=== PATIENT | female | born 1945 | race African-American/Black ===

== ENCOUNTER 2016-08-28 12:32 | Emergency (ER) | payer MEDICARE, MEDICAID ==
[~2016-08-28] VITALS: Ht 167.6 cm; Wt 99.8 kg
[~2016-08-28 12:32] MED LIST: ASPIR 8181 MG ORAL; ATENOLOL25 MG ORAL; ATIVAN1 MG ORAL; ATORVASTATIN CA20 MG ORAL; CALCIUM 600 +1 EAC2 PO; CALCIUM500 M3 PO; CEPHALEXIN500 M1 ORAL; DAILY MULTIPLE1 EACH ORAL; DOCUSATE SODIU100 MG ORAL; FLOVENT2 PUFF1 INH; GLUCOSAMINE &1 EACH PO; HEPARIN SO5000 UNIT2 SUBQ; HYDROCHLOROTHIA25 MG ORAL; HYDROCODON-ACE1 EA13 ORAL; IBUPROFEN600 MG ORAL; K-TAB10 MEQ PO; LEVOFLOXACIN500 MG ORAL; POTASSIUM 25 M25 ME1 PO; POTASSIUM CHLO20 ME1 ORAL; TYLENOL325 MG ORAL; VITAMIN C500 M1 ORAL; VITAMIN D400 INTLU ORAL; ZANTAC150 MG ORAL; ZOFRAN 4 MG4 MG/2 ML IV; ZOFRAN4 M3 ORAL; ZOLPIDEM TARTRAT5 MG ORAL
[2016-08-28] MEDS ORDERED: Ketorolac 60mg Inj IM ONE (13:00)
--- NOTE | 2016-08-28 13:10 | Emergency Room Report ---
History of Present Illness General Chief Complaint: Back Pain-No Injury Present Illness HPI 70 YO female presents to the ED c/o right upper back pain, onset after helping to assist her mother who is not mobile 3 weeks ago. denies trauma or fall. states pain is exacerbated with twisting of the trunk. reports pain is right sided, denies midline back pain. denies n/v/f/c. pt also reports asthma attach last week which required steroid burst. denies cough, wheezing, sob at this time. Pt states pain is not exacerbated with breathing. reports motrin has provided some relief, however pain returns. rates her pain as 6/10 in severity, localized, non-radiating. denies dysuria, hematuria or frequency. Denies numbness tingling or loss of sensation or gross motor movements of the extremities, incontinence of bowel or bladder. Denies CP, Palpitations, LOC, AMS , dizziness, Changes in Vision, Sensation, paresthesias, or a sudden severe headache. Allergies: Coded Allergies: No Known Allergies (Unverified , 07/21/13) Patient History Past Medical History: see triage record Past Surgical History: none Pertinent Family History: none Now: No Immunizations: UTD Reviewed Nursing Documentation: PMH: Agreed, PSxH: Agreed Nursing Documentation-PMH Hx Hypertension: Yes Hx Asthma: Yes Hx Cancer: No Hx Gastrointestinal Problems: Yes - Gastritis, CHOLECYSTECTOMY Hx Neurological Problems: No Review of Systems All Other Systems: negative except mentioned in HPI Physical Exam Vital Signs Date Time Temp Pulse Resp B/P Pulse Ox O2 Delivery O2 Flow Rate FiO2 08/28/16 12:41 98.2 79 20 143/82 100 Room Air Sp02 EP Interpretation: reviewed, normal General Appearance: no apparent distress, alert, GCS 15, non-toxic Head: normocephalic, atraumatic Eyes: bilateral eye PERRL, bilateral eye normal inspection ENT: hearing grossly normal, normal pharynx, no angioedema, normal voice Neck: full range of motion, supple/symm/no masses Respiratory: chest non-tender, lungs clear, normal breath sounds, no wheezing, speaking full sentences Cardiovascular #1: regular rate, rhythm, no edema, normal capillary refill Genitourinary: normal inspection, no CVA tenderness Musculoskeletal: back normal, gait/station normal, normal range of motion, tender - right paraspinal Thoracic ttp, no midline ttp, no obvious deformity, no erythema, no lesions. Neurologic: alert, oriented x3, responsive, motor strength/tone normal, sensory intact, speech normal Psychiatric: judgement/insight normal, memory normal, mood/affect normal Skin: normal color, no rash, warm/dry, well hydrated Lymphatic: no adenopathy Medical Decision Making PA Attestation Dr. cano is my supervising Physician whom patient management has been discussed with. Diagnostic Impression: Primary Impression: Muscle strain of right upper back Qualified Codes: S29.012A - Strain of muscle and tendon of back wall of thorax , initial encounter Additional Impression: Spasm of muscle, back ER Course Pt. presents to the ED c/o right upper back pain, onset after helping to assist her mother who is not mobile. denies trauma or fall. states pain is exacerbated with twisting of the trunk. reports pain is right sided, denies midline back pain. denies n/v/f/c. pt also reports asthma attach last week which required steroid burst. denies cough, wheezing, sob at this time. Ddx considered but are not limited to Fracture, dislocation, contusion, Sprain/ Strain/Spasm, Epidural abscess, Neoplastic mets. asthma exacerbation, chest wall pain. Vital signs: are WNL, pt. is afebrile H&PE are most consistent with muscle strain of the right upper back, ttp and reproduction with palpation, no evidence of infection, lungs are CTA. pt is NAD , non-toxic in appearance. ORDERS: - X-ray not required at this time pt. has no bony ttp. -UA:- pt unable to provide urine. ED INTERVENTIONS: - 350mg Soma PO - Toradol 45mg IM -d/w pt. will try conservative treatment for muscle strain/spasm, and to follow up with her pcp. d/w pt. to return promptly to ED with worsening or new symptoms. DISCHARGE: At this time pt. is stable for d/c to home. Will provide printed patient care instructions, and any necessary prescriptions. Care plan and follow up instructions have been discussed with the patient prior to discharge. Last Vital Signs Date Time Temp Pulse Resp B/P Pulse Ox O2 Delivery O2 Flow Rate FiO2 08/28/16 12:41 98.2 79 20 143/82 100 Room Air Disposition: HOME, SELF-CARE Condition: Stable Scripts Acetaminophen* (TYLENOL EXTRA STRENGTH*) 500 Mg Tablet 500 MG ORAL Q6H, #20 TAB 0 Refills Prov: Milana Argueta 08/28/16 Cyclobenzaprine Hcl* (FLEXERIL*) 10 Mg Tablet 10 MG ORAL THREE TIMES A DAY for 7 Days, #21 TAB Prov: Milana Argueta 08/28/16 Patient Instructions: Back Pain, Adult, Muscle Strain, [id number] Additional Instructions: Take medications as directed. Follow up with PCP in 3-5 days Return sooner to ED if new symptoms occur, or current symptoms become worse. Do not drink alcohol, drive, or operate heavy machinery while taking muscle relaxer as this may cause drowsiness. - Please note that this Emergency Department Report was dictated using [employer] taper technology software, occasionally this can lead to erroneous entry secondary to interpretation by the dictation equipment. Milana Argueta August 28, 2016 13:10
[2016-08-28] MEDS ORDERED: CYCLOBENZAPRINE10 MG ORAL (13:16)
[2016-08-28] MEDS ORDERED: TYLENOL EXTRA500 MG ORAL (13:16)
[2016-08-28 13:24] VITALS: BP 143/82
[2016-08-28 13:26] VITALS: BP 143/82
== END 2016-08-28 13:37 | disposition home or self-care (01) ==
LOC: EMR 13:30
DX: S29.012A Strain of muscle and tendon of back wall of thorax, initial encounter (principal); X50.9XXA Other and unspecified overexertion or strenuous movements or postures, initial encounter; Y92.009 Unspecified place in unspecified non-institutional (private) residence as the place of occurrence of the external cause; J45.909 Unspecified asthma, uncomplicated; I10 Essential (primary) hypertension
CPT/HCPCS: 96372; 99284

== ENCOUNTER 2016-10-03 02:47 | Emergency (ER) | payer MEDICARE, MEDICAID ==
[~2016-10-03] VITALS: Ht 167.6 cm; Wt 102.1 kg
[~2016-10-03 02:47] MED LIST changes: +CYCLOBENZAPRINE10 MG ORAL; +TYLENOL EXTRA500 MG ORAL
[2016-10-03 03:20] VITALS: BP 121/82
[2016-10-03] MEDS ORDERED: FAMOTIDINE20 MG ORAL (03:20)
[2016-10-03] MEDS ORDERED: ROBAXIN-750750 MG PO (03:33)
[2016-10-03] MEDS ORDERED: Methocarbamol 750mg tab ORAL ONE (03:45)
--- NOTE | 2016-10-03 03:55 | Emergency Room Report ---
History of Present Illness General Chief Complaint: Lower Back Pain or Injury Source: Patient Present Illness HPI 70YOF with known chronic upper back pain walked into ER with acute worsening over 2 weeks. States recent change is "even more pain when I turn my back." Was told by PMD DR Durham to go to ER "for any worsening of pain." Was taking Flexeril at home but "it just makes me sleepy" and doesnt help the pain. Denies any recent trauma. Patients mother came in at same time for evaluation so patient "thought I would come too." Has Orthopedist appt with Dr Hope later today. Allergies: Coded Allergies: No Known Allergies (Unverified , 10/03/16) Patient History Past Medical History: see triage record, old chart reviewed Past Surgical History: none Pertinent Family History: none Social History: Denies: alcohol use, drug use, smoking Last Menstrual Period: n/a Now: No Immunizations: UTD Reviewed Nursing Documentation: PMH: Agreed, PSxH: Agreed Nursing Documentation-PMH Past Medical History: No History, Except For Hx Hypertension: Yes Hx Asthma: Yes Hx Cancer: No Hx Gastrointestinal Problems: Yes - Gastritis, CHOLECYSTECTOMY Hx Neurological Problems: No Review of Systems All Other Systems: negative except mentioned in HPI Physical Exam Vital Signs Date Time Temp Pulse Resp B/P Pulse Ox O2 Delivery O2 Flow Rate FiO2 10/03/16 03:11 97.9 85 16 121/82 95 Room Air Sp02 EP Interpretation: reviewed, normal General Appearance: normal inspection, well appearing, no apparent distress, alert, GCS 15, non-toxic Head: normocephalic, atraumatic Eyes: bilateral eye EOMI, bilateral eye PERRL ENT: normal ENT inspection, hearing grossly normal, normal voice Neck: normal inspection, full range of motion, supple, no bony tend Respiratory: normal inspection, lungs clear, normal breath sounds, no respiratory distress, no retraction, no wheezing Cardiovascular #1: regular rate, rhythm, no edema Gastrointestinal: normal inspection, normal bowel sounds, non tender, soft, no guarding, no hernia Genitourinary: no CVA tenderness Musculoskeletal: normal inspection, back normal, normal range of motion, Kaitlynn' s Sign negative, other - No obvious swelling, focal ttp or spasm to upper back Neurologic: normal inspection, alert, oriented x3, responsive, project management advisor III-XII nml as tested, motor strength/tone normal, speech normal Psychiatric: normal inspection, judgement/insight normal, mood/affect normal Skin: normal inspection, normal color, no rash Medical Decision Making Diagnostic Impression: Primary Impression: Upper back pain, chronic Additional Impressions: Dysuria Cystitis ER Course Upper back pain, chronic A: low suspicion for cord compression given well appearance, no midline focal ttp, no focal neuro deficits, absence of midline ttp/masses and pain worse with movement without known exacerbating activity Rx Robaxin Has Ortho appt today On DC, mentions dysuria. UA: 2-4WBCs with "some bacteria." Will tx empirically for cystitis with Macrobid Last Vital Signs Date Time Temp Pulse Resp B/P Pulse Ox O2 Delivery O2 Flow Rate FiO2 10/03/16 03:11 97.9 85 16 121/82 95 Room Air Status: improved Disposition: HOME, SELF-CARE Condition: Improved Scripts Nitrofurantoin Monohyd/M-Cryst* (MACROBID 100 MG*) 100 Mg Capsule 100 MG ORAL EVERY 12 HOURS for 7 Days, #14 CAP Prov: LIZET FRANCO M.D. 10/03/16 Methocarbamol* (ROBAXIN-750*) 750 Mg Tablet 750 MG PO TID for 7 Days, #30 TAB 0 Refills Prov: LIZET FRANCO M.D. 10/03/16 Referrals: CHANCE DURHAM (PCP) Patient Instructions: Back Pain, Adult Additional Instructions: - Take Robaxin every 8 hours with food as needed for back pain - Follow up with orthopedist tomorrow LIZET FRANCO M.D. Oct 03, 2016 03:55
[2016-10-03 04:02] LABS: APPEARANCE,URINE CLEAR; KETONES,URINE NEGATIVE (NEGATIVE); LEUKOCYTE ESTERASE ,URINE 1+ (NEGATIVE); NITRITE,URINE NEGATIVE (NEGATIVE); PH,URINE 5 (4.5-8.0); PROTEIN,URINE NEGATIVE (NEGATIVE); UROBILINOGEN,URINE NORMAL MG/DL (0.0-1.0)
[2016-10-03 04:09] LABS: BACTERIA,URINE FEW /HPF; SQUAMOUS EPITHELIAL CELL,UR MANY /LPF (NONE/OCC)
[2016-10-03] MEDS ORDERED: NITROFURANTOIN100 M2 ORAL (04:14)
[2016-10-03 04:20] VITALS: BP 135/73
== END 2016-10-03 04:20 | disposition home or self-care (01) ==
LOC: EMR 03:42
DX: M54.9 Dorsalgia, unspecified (principal); G89.29 Other chronic pain; R30.0 Dysuria; N30.90 Cystitis, unspecified without hematuria; J45.909 Unspecified asthma, uncomplicated; I10 Essential (primary) hypertension; Z90.49 Acquired absence of other specified parts of digestive tract
CPT/HCPCS: 80300; 81003; 99284

== ENCOUNTER 2016-10-06 12:00 | Emergency (ER) | payer MEDICARE, MEDICAID ==
[~2016-10-06] VITALS: Ht 170.2 cm; Wt 102.1 kg
[~2016-10-06 12:00] MED LIST changes: +FAMOTIDINE20 MG ORAL; +NITROFURANTOIN100 M2 ORAL; +ROBAXIN-750750 MG PO
[2016-10-06 12:30] VITALS: BP 160/90
[2016-10-06 12:36] VITALS: BP 160/90
--- NOTE | 2016-10-07 08:21 | Emergency Room Report ---
History of Present Illness General Chief Complaint: Back Pain-No Injury Source: Patient Present Illness HPI 70-year-old female presents ED complaining of back pain. Patient said pain on and off for the last 2 months. Patient was seen a few days ago here and was prescribed robaxin for pain. She was scheduled to see Dr. Acosta as outpatient for evaluation but she missed her appointment. Patient is here for evaluation. Patient notes pain is at 8/10, throbbing, nonradiating. worse with bending and twisting. No other aggravating or relieving factors. Denies any other associated symptoms Allergies: Coded Allergies: No Known Allergies (Unverified , 10/03/16) Patient History Past Medical History: HTN, asthma Past Surgical History: alexis Pertinent Family History: none Social History: Denies: alcohol use, drug use, smoking Now: No Immunizations: UTD Reviewed Nursing Documentation: PMH: Agreed, PSxH: Agreed Nursing Documentation-PMH Hx Hypertension: Yes Hx Asthma: Yes Hx Cancer: No Hx Gastrointestinal Problems: Yes - Gastritis, CHOLECYSTECTOMY Hx Neurological Problems: No Review of Systems All Other Systems: negative except mentioned in HPI Physical Exam Vital Signs Date Time Temp Pulse Resp B/P Pulse Ox O2 Delivery O2 Flow Rate FiO2 10/06/16 12:07 98.2 78 16 160/90 98 Room Air Sp02 EP Interpretation: reviewed, normal General Appearance: no apparent distress, alert, GCS 15, non-toxic Head: normocephalic, atraumatic Eyes: bilateral eye PERRL, bilateral eye normal inspection ENT: hearing grossly normal, normal pharynx, no angioedema, normal voice Neck: full range of motion, supple/symm/no masses Respiratory: chest non-tender, lungs clear, normal breath sounds, speaking full sentences Cardiovascular #1: regular rate, rhythm, no edema Cardiovascular #2: 2+ carotid (R), 2+ carotid (L), 2+ radial (R), 2+ radial (L) , 2+ dorsalis pedis (R), 2+ dorsalis pedis (L) Gastrointestinal: normal bowel sounds, non tender, soft, non-distended, no guarding, no rebound Rectal: deferred Genitourinary: normal inspection, no CVA tenderness, no vertebral tenderness Musculoskeletal: back normal, gait/station normal, normal range of motion, non- tender, tender - paraspinal lumbar tenderness Neurologic: alert, oriented x3, responsive, motor strength/tone normal, sensory intact, speech normal Psychiatric: judgement/insight normal, memory normal, mood/affect normal, no suicidal/homicidal ideation Reflexes: 3+ bicep (R), 3+ bicep (L), 3+ tricep (R), 3+ tricep (L), 3+ knee (R) , 3+ knee (L) Skin: normal color, no rash, warm/dry, well hydrated Lymphatic: no adenopathy Medical Decision Making Diagnostic Impression: Primary Impression: Low back pain Qualified Codes: M54.5 - Low back pain; G89.29 - Other chronic pain ER Course Hospital Course 70-year-old female presents ED complaining of lower back pain. No evidence of trauma Differential diagnoses include: pyelonephritis, kidney stone, muscle strain, Lspine fracture Clinical course Patient placed on stretcher. After initial history , physical exam reveals a elderly female in no acute distress. There is no vertebral body tenderness. There is paraspinal lumbar tenderness. Straight leg raise negative. On review of CURES patient receives multiple narcotic prescriptions on a monthly basis. I do not believe patient requires additional pain medication at this time. Patient needs to followup with orthopedic as scheduled as outpatient. Patient understands and will be discharged at this time Diagnosis - low back pain Stable and discharged to home. Followup with orthopedics. Return to ED if symptoms recur or worsen Last Vital Signs Date Time Temp Pulse Resp B/P Pulse Ox O2 Delivery O2 Flow Rate FiO2 10/06/16 12:36 98.2 16 160/90 98 Room Air 10/06/16 12:07 78 Status: improved Disposition: HOME, SELF-CARE Condition: Stable Referrals: CHANCE DURHAM (PCP) GEO ACOSTA SAM Patient Instructions: Back Pain, Adult GAYLE GRIJALVA M.D. Oct 07, 2016 08:21
== END 2016-10-06 12:37 | disposition home or self-care (01) ==
LOC: EMR 12:15
DX: M54.5 Low back pain (principal); I10 Essential (primary) hypertension; J45.909 Unspecified asthma, uncomplicated; Z90.49 Acquired absence of other specified parts of digestive tract
CPT/HCPCS: 99282

== ENCOUNTER → 2016-11-04 | Outpatient (CLI) | payer MEDICARE, MEDICAID ==
[2016-11-04 14:30] LABS: APPEARANCE,URINE CLEAR; BASOPHILS % (AUTO) 1.1 % (0.0-2.0); EOSINOPHILS % (AUTO) 3.4 % (0.0-3.0); KETONES,URINE NEGATIVE (NEGATIVE); LEUKOCYTE ESTERASE ,URINE NEGATIVE (NEGATIVE); MEAN CORPUSCULAR HEMOGLOBIN 31.4 PG (27.0-31.0); MEAN CORPUSCULAR HGB CONC 33.5 G/DL (32.0-36.0); MEAN CORPUSCULAR VOLUME 94 FL (80-99); MEAN PLATELET VOLUME 9.5 FL (6.5-10.1); MONOCYTES % (AUTO) 7.8 % (1.0-10.0); NEUTROPHILS % (AUTO) 49.7 % (45.0-75.0); NITRITE,URINE NEGATIVE (NEGATIVE); PH,URINE 6.5 (4.5-8.0); PLATELET COUNT 177 K/UL (150-450); PROTEIN,URINE NEGATIVE (NEGATIVE); RED BLOOD COUNT 4.29 M/UL (4.20-5.40); RED CELL DISTRIBUTION WIDTH 11.6 % (11.6-14.8); UROBILINOGEN,URINE NORMAL MG/DL (0.0-1.0); WHITE BLOOD COUNT 5.2 K/UL (4.8-10.8)
[2016-11-04 14:39] LABS: WBC,URINE 0-2 /HPF (0 - 2)
[2016-11-04 14:40] LABS: BACTERIA,URINE FEW /HPF; SQUAMOUS EPITHELIAL CELL,UR FEW /LPF (NONE/OCC)
[2016-11-04 14:41] LABS: INR 1.1 (0.9-1.1); PROTHROMBIN TIME 11.6 SEC (9.30-11.50)
[2016-11-04 14:51] LABS: ALANINE AMINOTRANSFERASE 19 U/L (3-33); ALBUMIN/GLOBULIN RATIO 1.4 (1.0-2.7); ANION GAP 12 (5-15); ASPARTATE AMINO TRANSFERASE 21 U/L (5-40); CALCIUM 9.8 mg/dL (8.6-10.2); CARBON DIOXIDE 28 mEQ/L (20-30); CHLORIDE 102 mEQ/L (98-107); CREATININE 0.7 mg/dL (0.5-0.9); GLOMERULAR FILTRATION RATE > 60 mL/min (>60); HEMOLYSIS 0; POTASSIUM 3.3 mEQ/L (3.4-4.9); SODIUM 142 mEQ/L (135-145); TOTAL PROTEIN 7.3 g/dL (6.6-8.7)
--- NOTE | 2016-11-04 16:34 | Diagnostic Imaging Report ---
Indication: Dyspnea Comparison: 06/16/15 2 views of the chest obtained. The lungs are clear. The heart is mildly enlarged. Bones appears osteopenic. No pleural effusions are seen. No change demonstrated. Cholecystectomy clips noted. Impression: No acute disease
== END | disposition home or self-care (01) ==
LOC: LAB 12:55
DX: Z01.818 Encounter for other preprocedural examination (principal); M25.561 Pain in right knee
CPT/HCPCS: 36415; 71020; 80053; 81001; 85025; 85610; 85730; 93005

== ENCOUNTER 2016-11-18 21:41 | Emergency (ER) | payer MEDICARE, MEDICAID ==
[~2016-11-18] VITALS: Ht 167.6 cm; Wt 102.1 kg
[2016-11-18 22:26] VITALS: BP 143/91
[2016-11-18] MEDS ORDERED: Albuterol ud Inhalation HHN ONE (22:30)
[2016-11-18] MEDS ORDERED: Ipratropium 0.02% Inh Soln 2.5ml UD HHN ONE (22:30)
[2016-11-18] MEDS ORDERED: PredniSONE 20mg tab ORAL ONE (22:30)
[2016-11-18] MEDS ORDERED: PREDNISONE20 MG ORAL (23:08)
[2016-11-18] MEDS ORDERED: ALBUTEROL SULF8.5 GM INH (23:08)
--- NOTE | 2016-11-18 23:09 | Emergency Room Report ---
History of Present Illness General Chief Complaint: Asthma Source: Patient, Medical Record Present Illness HPI Is a 70-year-old female with history of asthma. She presents with asthma exacerbation last couple days. She is out of her inhaler. She was prescribed prednisone in June but she didn't take it. Denies any fever chills denies any nausea vomiting. Wheezing. No chest pain. Allergies: Coded Allergies: No Known Allergies (Unverified , 10/03/16) Patient History Past Medical History: see triage record, old chart reviewed, asthma Past Surgical History: other Pertinent Family History: none Social History: Denies: smoking Last Menstrual Period: post Now: No Immunizations: other Reviewed Nursing Documentation: PMH: Agreed, PSxH: Agreed Nursing Documentation-PMH Past Medical History: No History, Except For Hx Hypertension: Yes Hx Asthma: Yes Hx Cancer: No Hx Gastrointestinal Problems: Yes - Gastritis, CHOLECYSTECTOMY Hx Neurological Problems: No Review of Systems Eye: Denies: blurred vision, eye pain ENT: Denies: ear pain, nose congestion, throat swelling Respiratory: Reports: shortness of breath, wheezing, Denies: cough Cardiovascular: Denies: chest pain, palpitations Gastrointestinal: Denies: abdominal pain, diarrhea, nausea, vomiting Musculoskeletal: Denies: back pain, joint pain Skin: Denies: rash Neurological: Denies: headache, numbness Endocrine: Denies: increased thirst, increased urine Hematologic/Lymphatic: Denies: easy bruising All Other Systems: negative except mentioned in HPI Physical Exam Vital Signs Date Time Temp Pulse Resp B/P Pulse Ox O2 Delivery O2 Flow Rate FiO2 11/18/16 21:54 98.1 82 26 143/91 97 Room Air vitals normal Sp02 EP Interpretation: reviewed, normal General Appearance: well appearing, no apparent distress, alert Head: normocephalic, atraumatic Eyes: bilateral eye EOMI, bilateral eye PERRL ENT: hearing grossly normal, normal pharynx Neck: full range of motion, supple, no meningismus Respiratory: chest non-tender, wheezing Cardiovascular #1: regular rate, rhythm, no murmur Gastrointestinal: normal bowel sounds, non tender, no mass, no organomegaly, no bruit, non-distended Musculoskeletal: back normal, gait/station normal, normal range of motion Psychiatric: mood/affect normal Skin: warm/dry Medical Decision Making Diagnostic Impression: Primary Impression: Asthma attack ER Course Patient with asthma exacerbation. Clear with albuterol. Steroids given. Notice of ACS, PE, dissection or pneumonia. We'll discharge home. Last Vital Signs Date Time Temp Pulse Resp B/P Pulse Ox O2 Delivery O2 Flow Rate FiO2 11/18/16 22:29 91 18 96 Room Air 11/18/16 22:26 98.1 143/91 Status: improved Disposition: HOME, SELF-CARE Condition: Stable Scripts Prednisone* (PREDNISONE*) 20 Mg Tablet 40 MG ORAL DAILY, #8 TAB Prov: DEE TEJEDA M.D. 11/18/16 Albuterol Sulfate* (ALBUTEROL SULFATE MDI*) 8.5 Gm Hfa.aer.ad 2 PUFF INH Q4H Y for cough/wheezing, #1 EA 0 Refills Prov: DEE TEJEDA M.D. 11/18/16 Referrals: CHANCE DURHAM (PCP) Patient Instructions: Asthma, Adult Additional Instructions: Followup with your Dr. in 2-3 days if not better. Return if symptom worsen. DEE TEJEDA M.D. Nov 18, 2016 23:09
[2016-11-18 23:13] VITALS: BP 143/91
== END 2016-11-18 23:13 | disposition home or self-care (01) ==
LOC: EMR 22:18
DX: J45.901 Unspecified asthma with (acute) exacerbation (principal); I10 Essential (primary) hypertension
CPT/HCPCS: 94640; 94664; 99284

== ENCOUNTER 2017-01-10 16:54 | Emergency (ER) | payer MEDICARE, MEDICAID ==
[~2017-01-10] VITALS: Ht 167.6 cm; Wt 99.8 kg
[~2017-01-10 16:54] MED LIST changes: +ALBUTEROL SULF8.5 GM INH; +PREDNISONE20 MG ORAL
[2017-01-10] MEDS ORDERED: Ketorolac 60mg Inj IM ONE (17:15)
--- NOTE | 2017-01-10 17:30 | Emergency Room Report ---
History of Present Illness General Chief Complaint: Multiple Trauma/Fall Source: Patient Present Illness HPI 71YOF [employer] patient, walked in to ER for "whole body pain" after accidental slip and fall backwards yesterday. She states her mom "surprised me" and fell on her and she fell backwards. After multiple times of questioning her specifically about what hurts she says her lower back, both sides but not the midline Denies hitting head, LOC Ambulates today at baseline with walker Denies lower extremity weakness, incontinence Takes [place] and Robaxin at home for chronic pain Has been to ED multiple times for chronic pain, sciatica, ?neuropathic pain Scheduled allegedly for bilateral knee replacement next month with Dr Hope Allergies: Coded Allergies: No Known Allergies (Unverified , 10/03/16) Patient History Past Medical History: see triage record, old chart reviewed Past Surgical History: none Pertinent Family History: none Social History: Denies: smoking, alcohol use, drug use Now: No Immunizations: UTD Reviewed Nursing Documentation: PMH: Agreed, PSxH: Agreed Nursing Documentation-PMH Hx Hypertension: Yes Hx Asthma: Yes Hx Cancer: No Hx Gastrointestinal Problems: Yes - Gastritis, CHOLECYSTECTOMY Hx Neurological Problems: No Review of Systems All Other Systems: negative except mentioned in HPI Physical Exam Vital Signs Date Time Temp Pulse Resp B/P (MAP) Pulse Ox O2 Delivery O2 Flow Rate FiO2 01/10/17 16:57 98.2 80 15 122/67 98 Room Air Sp02 EP Interpretation: reviewed, normal General Appearance: normal inspection, well appearing, no apparent distress, alert, GCS 15, non-toxic, other - Well appearing, elderly lady in no acute distress Head: normocephalic, atraumatic Eyes: bilateral eye PERRL, bilateral eye EOMI ENT: normal ENT inspection, hearing grossly normal, normal voice Neck: normal inspection, full range of motion, supple, no bony tend Respiratory: normal inspection, lungs clear, normal breath sounds, no respiratory distress, no retraction, no wheezing Cardiovascular #1: regular rate, rhythm, no edema Gastrointestinal: normal inspection, normal bowel sounds, non tender, soft, no guarding, no hernia Genitourinary: no CVA tenderness Musculoskeletal: normal inspection, back normal, normal range of motion, Kaitlynn' s Sign negative, other - Mild ttp to right lateral hip. ROM intact. Mild lower bilateral paravertebral ttp. No midline ttp Neurologic: normal inspection, alert, oriented x3, responsive, apparel patternmaker III-XII nml as tested, motor strength/tone normal, cerebellar normal, normal gait, speech normal Psychiatric: normal inspection, judgement/insight normal, mood/affect normal Skin: normal inspection, normal color, no rash Lymphatic: normal inspection Medical Decision Making Diagnostic Impression: Primary Impression: Right hip pain Additional Impression: Fall Qualified Codes: W19.XXXA - Unspecified fall, initial encounter ER Course 71YOF with right hip pain s/p accidental fall yesterday History of arthritis Due for surgery next month, bilateral knee replacement Xray right hip and pelvis. No acute fx. Analgesia provided Patient c/o /10 pain but has been sleeping in stretcher Has [place] at home Informed PMD Dr Henry patient being DCed Xrays Pelvis 1 view ED review No acute fx, dislocation or soft tissue swelling Reviewed by Dr Lizet Franco MD Right hip 2 views ED review No acute fx, dislocation or soft tissue swelling Reviewed by Dr Lizet Franco MD Last Vital Signs Date Time Temp Pulse Resp B/P (MAP) Pulse Ox O2 Delivery O2 Flow Rate FiO2 01/10/17 16:57 98.2 80 15 122/67 98 Room Air Status: improved Disposition: HOME, SELF-CARE LIZET FRANCO M.D. Jan 10, 2017 17:30
[2017-01-10 17:32] VITALS: BP 122/67
[2017-01-10 18:16] VITALS: BP 115/56
--- NOTE | 2017-01-11 09:51 | Diagnostic Imaging Report ---
Indication: Right hip pain Technique: XRAY PELVIS 1 VIEW Comparison: None Findings: There is no radiographically evident acute fracture or dislocation. Degenerative acetabular spurring is noted bilaterally with axial narrowing of the bilateral hip joint spaces. There is osteopenia. Impression: No radiographically evident fracture or dislocation. If there is continued clinical concern for acute osseous injury, CT recommended for further evaluation.
--- NOTE | 2017-01-11 09:52 | Diagnostic Imaging Report ---
Indication: Right hip pain Technique: Right hip 2 views Comparison: None Findings: There is no radiographically evident acute fracture or dislocation. Degenerative acetabular spurring is noted with axial narrowing of the right hip joint space. There is osteopenia. Impression: No radiographically evident fracture or dislocation. If there is continued clinical concern for acute osseous injury, CT recommended for further evaluation.
== END 2017-01-10 18:39 | disposition home or self-care (01) ==
LOC: EMR 17:50
DX: M25.551 Pain in right hip (principal); W18.30XA Fall on same level, unspecified, initial encounter; Y92.89 Other specified places as the place of occurrence of the external cause; I10 Essential (primary) hypertension; J45.909 Unspecified asthma, uncomplicated; Z90.49 Acquired absence of other specified parts of digestive tract
CPT/HCPCS: 72170; 96372; 99283

== ENCOUNTER 2017-02-14 13:48 | Outpatient (CLI) | payer MEDICARE, MEDICAID ==
--- NOTE | 2017-02-16 18:38 | Cardiology Report ---
APPROVED REPORT EKG Measurement Heart [id number] FL [id number] [id number] Sinus bradycardia Possible Anterior infarct, age undetermined Abnormal ECG
== END 2017-02-14 15:48 | disposition home or self-care (01) ==
LOC: CAR 13:48
DX: Z01.818 Encounter for other preprocedural examination (principal); R00.1 Bradycardia, unspecified
CPT/HCPCS: 93005

== ENCOUNTER 2017-02-27 14:46 | Inpatient (IN) | payer MEDICARE, MEDICAID ==
[~2017-02-27] VITALS: Ht 167.6 cm; Wt 99.8 kg
[2017-02-27] MEDS ORDERED: Morphine Sulfate 4mg/ml Inj IVP ONE (15:00)
[2017-02-27] MEDS ORDERED: Vancomycin 1.5gm/D5W 250ml 250 ML IVPB ONE (15:00)
[2017-02-27] MEDS ORDERED: BENADRYL25 M3 PO (15:53)
[2017-02-27] MEDS ORDERED: FUROSEMIDE40 MG/5 ML ORAL (15:54)
[2017-02-27] MEDS ORDERED: MECLIZINE HCL25 M1 ORAL (15:55)
[2017-02-27] MEDS ORDERED: LACTULOSE20 GM/301 ORAL (15:55)
[2017-02-27] MEDS ORDERED: NORCO 5-325 TA1 EACH ORAL (15:57)
[2017-02-27] MEDS ORDERED: Nitroglycerin Subl 0.4mg tab SL PRN (16:00)
[2017-02-27] MEDS ORDERED: Miralax 17gm pkt ORAL PRN (16:00)
[2017-02-27] MEDS ORDERED: Albuterol/Ipratropium 3ml neb HHN PRN (16:00)
[2017-02-27 16:13] LABS: BASOPHILS % (AUTO) 1.9 % (0.0-2.0); EOSINOPHILS % (AUTO) 4.4 % (0.0-3.0); LYMPHOCYTES % (AUTO) 16.1 % (20.0-45.0); MEAN CORPUSCULAR HEMOGLOBIN 29.8 PG (27.0-31.0); MEAN CORPUSCULAR HGB CONC 30.9 G/DL (32.0-36.0); MEAN CORPUSCULAR VOLUME 97 FL (80-99); MEAN PLATELET VOLUME 7.3 FL (6.5-10.1); MONOCYTES % (AUTO) 9.3 % (1.0-10.0); NEUTROPHILS % (AUTO) 68.4 % (45.0-75.0); PLATELET COUNT 194 K/UL (150-450); RED BLOOD COUNT 3.19 M/UL (4.20-5.40); RED CELL DISTRIBUTION WIDTH 12.3 % (11.6-14.8); WHITE BLOOD COUNT 8.7 K/UL (4.8-10.8)
[2017-02-27 16:27] LABS: ANION GAP 7 mmol/L (5-15); CALCIUM 9.5 MG/DL (8.5-10.1); CARBON DIOXIDE 31 MMOL/L (21-32); CHLORIDE 102 MMOL/L (98-107); CREATININE 0.7 MG/DL (0.55-1.30); POTASSIUM 3.5 MMOL/L (3.5-5.1); SODIUM 140 MMOL/L (136-145)
[2017-02-27 16:38] LABS: ALANINE AMINOTRANSFERASE 27 U/L (12-78); ALBUMIN/GLOBULIN RATIO 0.8 (1.0-2.7); ASPARTATE AMINO TRANSFERASE 27 U/L (15-37); TOTAL PROTEIN 7.3 G/DL (6.4-8.2)
[2017-02-27 16:50] LABS: BILIRUBIN,DIRECT 0.2 MG/DL (0.0-0.3)
--- NOTE | 2017-02-27 17:29 | Emergency Room Report ---
History of Present Illness General Chief Complaint: Lower Extremity Injury Source: Patient Present Illness HPI 71-year-old female presents ED complaining of right knee pain. Patient is status post right knee replacement on 02/20. Done at [facility]. Patient is here because there is swelling and blistering to the right knee. Patient is coming from a nursing home facility. Patient had pain a few days ago and was seen at [facility]. Blisters were then debrided and patient was placed on antibiotics. Patient states the pain and swelling is persisting. Patient also ultrasound done which showed no evidence of DVT. Pain is a 10 out of 10, sharp, nonradiating. Denies fevers or chills. States she is unable to bear weight on the knee. No other aggravating relieving factors. Denies any other associated symptoms Allergies: Coded Allergies: No Known Allergies (Unverified , 10/03/16) Patient History Past Medical History: HTN, asthma Pertinent Family History: none Social History: Denies: smoking, alcohol use, drug use Now: No Immunizations: UTD Reviewed Nursing Documentation: PMH: Agreed, PSxH: Agreed Nursing Documentation-PMH Hx Hypertension: Yes Hx Asthma: Yes Hx Cancer: No Hx Gastrointestinal Problems: Yes - Gastritis, CHOLECYSTECTOMY Hx Neurological Problems: No - right knee surgery Review of Systems All Other Systems: negative except mentioned in HPI Physical Exam Vital Signs Date Time Temp Pulse Resp B/P (MAP) Pulse Ox O2 Delivery O2 Flow Rate FiO2 02/27/17 14:40 97.9 79 18 141/73 99 Room Air Sp02 EP Interpretation: reviewed, normal General Appearance: alert, GCS 15, non-toxic, moderate distress, obese Head: normocephalic Eyes: bilateral eye normal inspection, bilateral eye PERRL ENT: normal ENT inspection Neck: normal inspection Respiratory: chest non-tender, lungs clear, normal breath sounds, speaking full sentences Cardiovascular #1: regular rate, rhythm, no edema Gastrointestinal: normal bowel sounds, non tender, soft, non-distended, no guarding, no rebound Rectal: deferred Genitourinary: no CVA tenderness Musculoskeletal: decreased range of motion, swelling - R knee, tender - R knee Neurologic: alert, oriented x3, responsive, motor strength/tone normal, sensory intact, speech normal Psychiatric: normal inspection Skin: other - surgical site with induration/erythema. blistering noted Lymphatic: normal inspection Medical Decision Making Diagnostic Impression: Primary Impression: Wound infection after surgery Qualified Codes: T81.4XXA - Infection following a procedure, initial encounter Additional Impression: Status post right knee replacement ER Course Hospital Course 71-year-old female presents to ED complaining of pain and swelling. Status post right knee replacement times one week Differential diagnoses include: Cellulitis, abscess, rash. Clinical course Patient placed on stretcher. After initial history and physical I ordered labs , blood Cx, IVFs labs reviewed -no leuocytosis, Hb/Hct stable, no electrolyte abnormalities. ESR and CRP elevated antibiotics given. Dr Hope (orthopedics) is the surgeon and will be consulted Case discussed with Dr Durham and he agreed to accept the patient to his service for further care and support Diagnosis - wound infection after surgery. s/p R knee replacement Patient admitted to floor in serious condition Labs Test 02/27/17 15:45 White Blood Count 8.7 K/UL (4.8-10.8) Red Blood Count 3.19 M/UL (4.20-5.40) Hemoglobin 9.5 G/DL (12.0-16.0) Hematocrit 30.8 % (37.0-47.0) Mean Corpuscular Volume 97 FL (80-99) Mean Corpuscular Hemoglobin 29.8 PG (27.0-31.0) Mean Corpuscular Hemoglobin Concent 30.9 G/DL (32.0-36.0) Red Cell Distribution Width 12.3 % (11.6-14.8) Platelet Count 194 K/UL (150-450) Mean Platelet Volume 7.3 FL (6.5-10.1) Neutrophils (%) (Auto) 68.4 % (45.0-75.0) Lymphocytes (%) (Auto) 16.1 % (20.0-45.0) Monocytes (%) (Auto) 9.3 % (1.0-10.0) Eosinophils (%) (Auto) 4.4 % (0.0-3.0) Basophils (%) (Auto) 1.9 % (0.0-2.0) Erythrocyte Sedimentation Rate 100 MM/HR (0-30) Sodium Level 140 MMOL/L (136-145) Potassium Level 3.5 MMOL/L (3.5-5.1) Chloride Level 102 MMOL/L (98-107) Carbon Dioxide Level 31 MMOL/L (21-32) Anion Gap 7 mmol/L (5-15) Blood Urea Nitrogen 13 mg/dL (7-18) Creatinine 0.7 MG/DL (0.55-1.30) Estimat Glomerular Filtration Rate mL/min (>60) Glucose Level 122 MG/DL (74-106) Lactic Acid Level 0.90 mmol/L (0.66-2.22) Calcium Level 9.5 MG/DL (8.5-10.1) Total Bilirubin 1.2 MG/DL (0.2-1.0) Direct Bilirubin 0.2 MG/DL (0.0-0.3) Aspartate Amino Transf (AST/SGOT) 27 U/L (15-37) Alanine Aminotransferase (ALT/SGPT) 27 U/L (12-78) Alkaline Phosphatase 69 U/L (46-116) C-Reactive Protein, Quantitative 5.2 mg/dL (0.00-0.90) Total Protein 7.3 G/DL (6.4-8.2) Albumin 3.2 G/DL (3.4-5.0) Globulin 4.1 g/dL Albumin/Globulin Ratio 0.8 (1.0-2.7) Last Vital Signs Date Time Temp Pulse Resp B/P (MAP) Pulse Ox O2 Delivery O2 Flow Rate FiO2 02/27/17 17:10 97.8 78 18 139/72 100 Room Air Status: improved Disposition: ADMITTED INPATIENT Condition: Serious Referrals: CHANCE DURHAM (PCP) GAYLE GRIJALVA M.D. Feb 27, 2017 17:29
[2017-02-27 17:30] VITALS: BP 137/74
[2017-02-27] MEDS: Cyclobenzaprine 10mg Tab ORAL SCH (18:00)
[2017-02-27] MEDS: Vancomycin 1.5 GM/D5W 250ML IVPB SCH (18:00)
--- NOTE | 2017-02-27 18:17 | Consultation ---
History of Present Illness General Date patient seen: Feb 28, 2017 Chief Complaint: Lower Extremity Injury Present Illness HPI 71-year-old female with hx of hypertension, osteoarthritis, right knee replacement presented to ED complaining of right knee pain. She has swelling and blistering to the right knee. Patient had pain a few days ago and was seen at [facility]. Patient states the pain and swelling is persisting. Pain is a 10 out of 10, sharp, nonradiating. Denies fevers or chills. States she is unable to bear weight on the knee. No other aggravating relieving factors. Denies any other associated symptoms Allergies: Coded Allergies: No Known Allergies (Unverified , 10/03/16) Medication History Scheduled Acetaminophen* (Tylenol Extra Strength*), 500 MG ORAL Q6H Ascorbic Acid* (Vitamin C*), 500 MG ORAL DAILY, (Reported) Aspirin* (Aspir 81*), 81 MG ORAL DAILY, (Reported) Atenolol* (Tenormin*), 25 MG ORAL DAILY, (Reported) Atorvastatin Calcium* (Atorvastatin Calcium*), 20 MG ORAL BEDTIME, (Reported) Calcium Carbonate/Vitamin D3 (Calcium 600 + Vit D 200 Tablet), 1 EACH PO DAILY, (Reported) Cephalexin* (Cephalexin*), 500 MG ORAL EVERY 8 HOURS, (Reported) Cyclobenzaprine Hcl* (Flexeril*), 10 MG ORAL THREE TIMES A DAY Diphenhydramine HCl (Benadryl), 25 MG PO EVERY 6 HOURS, (Reported) Docusate Sodium* (Docusate Sodium*), 100 MG ORAL Q12HR, (Reported) Famotidine (Famotidine), 20 MG ORAL DAILY, (Reported) Fluticasone Propionate (Flovent Hfa), 2 PUFFS INH EVERY 4 HOURS, (Reported) Furosemide (Furosemide), 20 MG ORAL DAILY, (Reported) Glucosa Yousif 2KCL/Chondroitin Yousif (Glucosamine & Chondroitin Cap), 2 EACH PO TID, ( Reported) Heparin Sod (Porcine) (Heparin Sodium*), 5,000 UNITS SUBQ EVERY 12 HOURS, ( Reported) Hydrochlorothiazide* (Hydrochlorothiazide*), 25 MG ORAL DAILY, (Reported) Hydrocodone Bit/Acetaminophen 10-325* (Hydrocodon-Acetaminophn 10-325*), 1 TAB ORAL Q6H Methocarbamol* (Robaxin-750*), 750 MG PO TID Nitrofurantoin Monohyd/M-Cryst* (Macrobid 100 Mg*), 100 MG ORAL EVERY 12 HOURS Potassium Bicarbonate/Cit Ac (Potassium 25 Meq Tablet Eff), 40 MEQ PO DAILY, ( Reported) Potassium Chloride (K-Tab), 30 MEQ PO BID, (Reported) Prednisone* (Prednisone*), 40 MG ORAL DAILY Ranitidine Hcl* (Zantac*), 300 MG ORAL QHS, (Reported) Vitamin D (Vitamin D3), 3,000 UNITS ORAL DAILY, (Reported) Scheduled PRN Acetaminophen (Tylenol), 650 MG ORAL Q4HR PRN for Mild Pain/Temp > 100.5, ( Reported) Albuterol Sulfate* (Albuterol Sulfate Mdi*), 2 PUFF INH Q4H PRN for cough/ wheezing Hydrocodone Bit/Acetaminophen 5-325* ([place] 5-325*), 1 TAB ORAL Q6H PRN for For Pain, (Reported) Lactulose (Lactulose*), 30 ML ORAL DAILY PRN for Constipation, (Reported) Lorazepam* (Ativan*), 1 MG ORAL Q4HR PRN for For Anxiety, (Reported) Meclizine Hcl (Meclizine Hcl), 25 MG ORAL THREE TIMES A DAY PRN for for dizziness, (Reported) Ondansetron* (Zofran*), 4 MG ORAL Q6H PRN for Nausea & Vomiting, (Reported) Ondansetron* (Zofran*), 4 MG IV Q6H PRN for Nausea & Vomiting, (Reported) Zolpidem Tartrate* (Zolpidem Tartrate*), 5 MG ORAL BEDTIME PRN for Insomnia, ( Reported) Miscellaneous Medications Calcium Carbonate (Calcium), 500 MG PO, (Reported) Discontinued Medications Ibuprofen* (Motrin*), 600 MG ORAL FOUR TIMES A DAY, (Reported) Discontinued Reason: Therapy completed Ibuprofen* (Motrin*), 600 MG ORAL THREE TIMES A DAY, (Reported) Discontinued Reason: Therapy completed Levofloxacin (Levofloxacin*), 500 MG ORAL DAILY, (Reported) Discontinued Reason: Therapy completed Multivitamin (Daily Multiple Vitamin), 1 TAB ORAL DAILY, (Reported) Discontinued Reason: Therapy completed Potassium Chloride* (K-Dur*), 20 MEQ ORAL TID, (Reported) Discontinued Reason: Therapy completed Patient History Healthcare decision maker Resuscitation status Advanced Directive on File Past Medical/Surgical History Past Medical/Surgical History: (1) Intractable neuropathic pain of foot (2) History of asthma (3) Status post right knee replacement Review of Systems Constitutional: Reports: no symptoms Eye: Reports: no symptoms ENT: Reports: no symptoms Physical Exam General Appearance: WD/WN Lines, tubes and drains: peripheral HEENT: normocephalic, atraumatic Neck: non-tender, normal alignment Respiratory/Chest: chest wall non-tender, normal breath sounds Cardiovascular/Chest: normal peripheral pulses, normal rate Genitourinary/Rectal: normal genital exam Extremities: normal range of motion Last 24 Hour Vital Signs Date Time Temp Pulse Resp B/P (MAP) Pulse Ox O2 Delivery O2 Flow Rate FiO2 02/27/17 17:10 97.8 78 18 139/72 100 Room Air 02/27/17 17:09 97.8 02/27/17 14:40 97.9 79 18 141/73 99 Room Air Laboratory Tests Test 02/27/17 15:45 White Blood Count 8.7 K/UL (4.8-10.8) Red Blood Count 3.19 M/UL (4.20-5.40) L Hemoglobin 9.5 G/DL (12.0-16.0) L Hematocrit 30.8 % (37.0-47.0) L Mean Corpuscular Volume 97 FL (80-99) Mean Corpuscular Hemoglobin 29.8 PG (27.0-31.0) Mean Corpuscular Hemoglobin Concent 30.9 G/DL (32.0-36.0) L Red Cell Distribution Width 12.3 % (11.6-14.8) Platelet Count 194 K/UL (150-450) Mean Platelet Volume 7.3 FL (6.5-10.1) Neutrophils (%) (Auto) 68.4 % (45.0-75.0) Lymphocytes (%) (Auto) 16.1 % (20.0-45.0) L Monocytes (%) (Auto) 9.3 % (1.0-10.0) Eosinophils (%) (Auto) 4.4 % (0.0-3.0) H Basophils (%) (Auto) 1.9 % (0.0-2.0) Erythrocyte Sedimentation Rate 100 MM/HR (0-30) H Sodium Level 140 MMOL/L (136-145) Potassium Level 3.5 MMOL/L (3.5-5.1) Chloride Level 102 MMOL/L (98-107) Carbon Dioxide Level 31 MMOL/L (21-32) Anion Gap 7 mmol/L (5-15) Blood Urea Nitrogen 13 mg/dL (7-18) Creatinine 0.7 MG/DL (0.55-1.30) Estimat Glomerular Filtration Rate mL/min (>60) Glucose Level 122 MG/DL (74-106) H Lactic Acid Level 0.90 mmol/L (0.66-2.22) Calcium Level 9.5 MG/DL (8.5-10.1) Total Bilirubin 1.2 MG/DL (0.2-1.0) H Direct Bilirubin 0.2 MG/DL (0.0-0.3) Aspartate Amino Transf (AST/SGOT) 27 U/L (15-37) Alanine Aminotransferase (ALT/SGPT) 27 U/L (12-78) Alkaline Phosphatase 69 U/L (46-116) C-Reactive Protein, Quantitative 5.2 mg/dL (0.00-0.90) H Total Protein 7.3 G/DL (6.4-8.2) Albumin 3.2 G/DL (3.4-5.0) L Globulin 4.1 g/dL Albumin/Globulin Ratio 0.8 (1.0-2.7) L Height (Feet): 5 Height (Inches): 6.00 Weight (Pounds): 220 Medications Current Medications Medications (Trade) Dose Ordered Sig/Anisha Route PRN Reason Start Time Stop Time Status Last Admin Dose Admin Acetaminophen (Tylenol) 650 mg Q4H PRN ORAL fever 02/27/17 16:00 03/29/17 15:59 Albuterol/ Ipratropium (Albuterol/ Ipratropium) 3 ml EVERY 4 HOURS PRN HHN Shortness of Breath 02/27/17 16:00 03/04/17 15:59 Cefepime HCl 2 gm/ Dextrose 110 ml @ 220 mls/hr EVERY 12 HOURS IV 02/27/17 21:00 03/06/17 20:59 Cyclobenzaprine HCl (Flexeril) 10 mg THREE TIMES A DAY ORAL 02/27/17 18:00 03/29/17 17:59 Dextrose (Dextrose 50%) STAT PRN IV Hypoglycemia 02/27/17 16:00 03/29/17 15:59 Heparin Sodium (Porcine) (Heparin 5000 units/ml) 5,000 units EVERY 12 HOURS SUBQ 02/27/17 21:00 03/29/17 20:59 Lorazepam (Ativan) 1 mg Q4HR PRN ORAL For Anxiety 02/27/17 16:00 03/06/17 15:59 Nitroglycerin (Ntg) 0.4 mg Q5MINS PRN SL Prn Chest Pain 02/27/17 16:00 03/29/17 15:59 Ondansetron HCl (Zofran) 4 mg Q6H PRN IVP Nausea & Vomiting 02/27/17 16:00 03/29/17 15:59 Polyethylene Glycol (Miralax) 17 gm DAILYPRN PRN ORAL Constipation 02/27/17 16:00 03/29/17 15:59 Temazepam (Restoril) 15 mg HSPRN PRN ORAL Insomnia 02/27/17 16:00 03/06/17 15:59 Vancomycin HCl/ Dextrose 250 ml @ 125 mls/hr DAILY IVPB 02/27/17 18:00 03/04/17 17:59 Assessment/Plan Problem List: (1) Wound infection after surgery ICD Codes: T81.4XXA - Infection following a procedure, initial encounter SNOMED: 19130446, [id number] Qualifiers: Qualified Codes: T81.4XXA - Infection following a procedure, initial encounter (2) Intractable neuropathic pain of foot ICD Codes: G57.90 - Unspecified mononeuropathy of unspecified lower limb SNOMED: 242733198 (3) History of asthma ICD Codes: Z87.09 - Personal history of other diseases of the respiratory system SNOMED: 107587576 (4) Swelling of knee joint, right ICD Codes: M25.461 - Effusion, right knee SNOMED: 863303727 Assessment/Plan wound care IV antibiotics check cultures ortho evaluation ID evaluation. KRZYSZTOF RABAGO Feb 27, 2017 18:17
[2017-02-27 20:00] VITALS: BP 116/80
[2017-02-27] MEDS: Cefepime HCl 2 GM in D5W 110 ML IV SCH (21:06)
[2017-02-27] MEDS: Morphine Sulfate 4mg/ml Inj IVP PRN (21:07)
[2017-02-27] MEDS: Heparin 5000 units/ml inj SUBQ SCH (21:08)
--- NOTE | 2017-02-27 21:45 | History and Physical Report ---
DATE OF ADMISSION: 02/27/2017 TIME: 3 p.m. ATTENDING PHYSICIAN: Brandon Henry D.O. CONSULTANTS: 1. Kaz Hope M.D. 2. Ashley Tapia M.D. 3. Dr. Ward. 4. Shlomo Ruiz M.D. CHIEF COMPLAINT: Right knee surgery wound infection. BRIEF HISTORY: This is a 71-year-old female from [facility], had recent surgery at [facility] of the right knee, surgery done by Dr. Hope on 02/20/2017. She was doing well then developed some blisters and became painful and started draining. The patient was concerned and brought to [facility], diagnosed with the above, admitted to medical floor for further treatment. Currently, calm in the ER gurney with right knee pain. No complaints. PAST MEDICAL HISTORY: Include hypertension, arthritis, and low back pain. PAST SURGICAL HISTORY: Right knee surgery recently. MEDICATIONS: Include vancomycin, morphine, . We will obtain list shortly. ALLERGIES: Denied. SOCIAL HISTORY: No smoke. No alcohol. No intravenous drug abuse. FAMILY HISTORY: Noncontributory. REVIEW OF SYSTEMS: No chest pain. No shortness of breath. No nausea, vomiting, or diarrhea. PHYSICAL EXAMINATION: GENERAL: Slightly anxious in bed, oriented x3, in no acute distress. VITAL SIGNS: Temperature is 97 degrees, pulse 79, respirations 18, and blood pressure 141/73. CARDIOVASCULAR: No murmur. LUNGS: Distant and clear. ABDOMEN: Bowel sounds are positive. Nontender and nondistended. EXTREMITIES: No cyanosis or clubbing. A 1+ edema. Right knee is swollen, slight drainage, and large blister, 0.5 inch x 0.5 inch in the distal location of the incision. Slight drainage. Slightly warm. NEUROLOGIC: The patient moves all extremities. Slightly weak. LABORATORY DATA: Labs are pending. ASSESSMENT: 1. Right knee surgery blister. 2. Arthritis. 3. Low back pain. 4. Hypertension. 5. Possible wound infection. PLAN: 1. Continue premedications. 2. OT, PT, and dietary evaluation. 3. Wound care. 4. CBC and BMP. 5. Antibiotics per Infectious Disease. 6. Resume home medications. 7. Pain control. 8. Dr. Hope, Dr. TapiaDr. Ward and Dr. Ruiz to consult. Brandon Henry D.O. DR: HEIDY JOB#: [id number] CC:
[2017-02-28] VITALS (7 sets, daily range): BP systolic 125–175; BP diastolic 60–98
[2017-02-28] MEDS: LORazepam 1mg tab ORAL PRN
[2017-02-28] MEDS ORDERED: Vancomycin 1 GM in D5W 275 ML IV SCH (00:30)
[2017-02-28] MEDS: Morphine Sulfate 4mg/ml Inj IVP PRN (04:48)
[2017-02-28] MEDS ORDERED: Norco 5mg/325mg tab ORAL ONE (07:30)
[2017-02-28 08:48] LABS: BASOPHILS % (AUTO) 1.2 % (0.0-2.0); EOSINOPHILS % (AUTO) 5.9 % (0.0-3.0); LYMPHOCYTES % (AUTO) 21.1 % (20.0-45.0); MEAN CORPUSCULAR HGB CONC 31.5 G/DL (32.0-36.0); MEAN CORPUSCULAR VOLUME 95 FL (80-99); MEAN PLATELET VOLUME 6.6 FL (6.5-10.1); MONOCYTES % (AUTO) 7.3 % (1.0-10.0); NEUTROPHILS % (AUTO) 64.5 % (45.0-75.0); PLATELET COUNT 196 K/UL (150-450); RED BLOOD COUNT 3.29 M/UL (4.20-5.40); RED CELL DISTRIBUTION WIDTH 12.1 % (11.6-14.8); WHITE BLOOD COUNT 8.6 K/UL (4.8-10.8)
[2017-02-28 08:59] LABS: ALANINE AMINOTRANSFERASE 25 U/L (12-78); ALBUMIN/GLOBULIN RATIO 0.8 (1.0-2.7); ANION GAP 7 mmol/L (5-15); ASPARTATE AMINO TRANSFERASE 20 U/L (15-37); CALCIUM 9.1 MG/DL (8.5-10.1); CARBON DIOXIDE 29 MMOL/L (21-32); CHLORIDE 104 MMOL/L (98-107); CREATININE 0.7 MG/DL (0.55-1.30); POTASSIUM 3.2 MMOL/L (3.5-5.1); SODIUM 140 MMOL/L (136-145)
[2017-02-28 09:00] LABS: BILIRUBIN,DIRECT 0.3 MG/DL (0.0-0.3)
[2017-02-28] MEDS: Cyclobenzaprine 10mg Tab ORAL SCH ×3 (09:25→18:22)
--- NOTE | 2017-02-28 09:26 | General Progress Note ---
Assessment/Plan Assessment/Plan (1) B/l Knee Pain (2) B/l Knee OA (3) S/p Right knee TKR (4) Neuropathic pain Patient will be continued on morphine and started on [place] 10/325mg PO 1 tab Q6H PRN pain and Neurontin 100mg TID. The patient was discussed with Dr. Ruiz and Dr. Ruiz concurred. Thank you very much for the courtesy of this consultation. Subjective Date patient seen: Feb 28, 2017 Time patient seen: 07:15 - am Allergies: Coded Allergies: No Known Allergies (Unverified , 10/03/16) Subjective REVIEW OF SYSTEMS: Denies rash, fever, chills, sweating, dizziness, drowsiness, blurred vision, sore throat, or change in her weight. No shortness of breath or chest pain. No nausea, vomiting, or blood in stool or urine. No bowel or bladder incontinence. She is complaining of bilateral knee pain. SUBJECTIVE: Patient is a known patient from prior admission. She continues to have knee pain and is s/p TKR on right knee on 02/[address] Hope at [facility]. Pt had gone home however started to have c/o severe pain went to ER and is being R/o for infection. On Morphine 4mg IV Q4H PRN with minimal pain relief we were consulted so patient will have adequate pain relief while here in the hospital. Objective Last 24 Hour Vital Signs Date Time Temp Pulse Resp B/P (MAP) Pulse Ox O2 Delivery O2 Flow Rate FiO2 02/28/17 07:59 98.7 78 18 133/74 100 Room Air 02/28/17 05:21 97.7 02/28/17 04:00 97.2 76 18 125/71 98 Room Air 02/28/17 00:00 97.7 83 19 129/60 99 Room Air 02/27/17 20:00 97.5 79 18 116/80 99 Room Air 02/27/17 17:30 98.2 81 17 137/74 97 Room Air 02/27/17 17:10 97.8 78 18 139/72 100 Room Air 02/27/17 17:09 97.8 02/27/17 14:40 97.9 79 18 141/73 99 Room Air Laboratory Tests 02/27/17 15:45: White Blood Count 8.7, Red Blood Count 3.19L, Hemoglobin 9.5L, Hematocrit 30.8L , Mean Corpuscular Volume 97, Mean Corpuscular Hemoglobin 29.8, Mean Corpuscular Hemoglobin Concent 30.9L, Red Cell Distribution Width 12.3, Platelet Count 194, Mean Platelet Volume 7.3, Neutrophils (%) (Auto) 68.4, Lymphocytes (%) (Auto) 16.1L, Monocytes (%) (Auto) 9.3, Eosinophils (%) (Auto) 4.4H, Basophils (%) (Auto) 1.9, Erythrocyte Sedimentation Rate 100H, Sodium Level 140, Potassium Level 3.5, Chloride Level 102, Carbon Dioxide Level 31, Anion Gap 7, Blood Urea Nitrogen 13, Creatinine 0.7, Estimat Glomerular Filtration Rate , Glucose Level 122H, Lactic Acid Level 0.90, Calcium Level 9.5 , Total Bilirubin 1.2H, Direct Bilirubin 0.2, Aspartate Amino Transf (AST/SGOT) 27, Alanine Aminotransferase (ALT/SGPT) 27, Alkaline Phosphatase 69, C-Reactive Protein, Quantitative 5.2H, Total Protein 7.3, Albumin 3.2L, Globulin 4.1, Albumin/Globulin Ratio 0.8L 02/28/17 07:50: White Blood Count 8.6, Red Blood Count 3.29L, Hemoglobin 9.9L, Hematocrit 31.3L , Mean Corpuscular Volume 95, Mean Corpuscular Hemoglobin 30.0, Mean Corpuscular Hemoglobin Concent 31.5L, Red Cell Distribution Width 12.1, Platelet Count 196, Mean Platelet Volume 6.6, Neutrophils (%) (Auto) 64.5, Lymphocytes (%) (Auto) 21.1, Monocytes (%) (Auto) 7.3, Eosinophils (%) (Auto) 5.9H, Basophils (%) (Auto) 1.2, Sodium Level 140, Potassium Level 3.2L, Chloride Level 104, Carbon Dioxide Level 29, Anion Gap 7, Blood Urea Nitrogen 13 , Creatinine 0.7, Estimat Glomerular Filtration Rate , Glucose Level 149H, Calcium Level 9.1, Total Bilirubin 1.2H, Direct Bilirubin 0.3, Aspartate Amino Transf (AST/SGOT) 20, Alanine Aminotransferase (ALT/SGPT) 25, Alkaline Phosphatase 64, Total Protein 7.0, Albumin 3.0L, Globulin 4.0, Albumin/Globulin Ratio 0.8L Height (Feet): 5 Height (Inches): 6.00 Weight (Pounds): 220 Objective GENERAL: Alert, awake, and oriented x3. HEENT: PERRLA. NECK: Range of motion is full in all directions. No tenderness. There is no adenopathy. LUNGS: Clear. HEART: S1 and S2 regular. ABDOMEN: Obese. EXTREMITIES: No cyanosis. No clubbing. Swelling noted and bandages applied to right knee with tenderness to palpation. NEUROLOGICAL EXAM: No focal deficit. MATEO ENGLE Feb 28, 2017 09:26
[2017-02-28] MEDS: Cefepime HCl 2 GM in D5W 110 ML IV SCH ×2 (09:29→20:51)
[2017-02-28] MEDS: Heparin 5000 units/ml inj SUBQ SCH ×2 (09:36→20:54)
[2017-02-28] MEDS: Vancomycin 1.5 GM/D5W 250ML IVPB SCH (10:55)
--- NOTE | 2017-02-28 12:22 | Infectious Diseases Prog Note ---
Assessment/Plan Assessment/Plan ID consult dictated # [id number] Subjective Allergies: Coded Allergies: No Known Allergies (Unverified , 10/03/16) Objective Vital Signs Last 24 Hour Vital Signs Date Time Temp Pulse Resp B/P (MAP) Pulse Ox O2 Delivery O2 Flow Rate FiO2 02/28/17 07:59 98.7 78 18 133/74 100 Room Air 02/28/17 05:21 97.7 02/28/17 04:00 97.2 76 18 125/71 98 Room Air 02/28/17 00:00 97.7 83 19 129/60 99 Room Air 02/27/17 20:00 97.5 79 18 116/80 99 Room Air 02/27/17 17:30 98.2 81 17 137/74 97 Room Air 02/27/17 17:10 97.8 78 18 139/72 100 Room Air 02/27/17 17:09 97.8 02/27/17 14:40 97.9 79 18 141/73 99 Room Air Height (Feet): 5 Height (Inches): 6.00 Weight (Pounds): 220 Laboratory Tests Test 02/27/17 15:45 02/28/17 07:50 White Blood Count 8.7 K/UL (4.8-10.8) 8.6 K/UL (4.8-10.8) Red Blood Count 3.19 M/UL (4.20-5.40) L 3.29 M/UL (4.20-5.40) L Hemoglobin 9.5 G/DL (12.0-16.0) L 9.9 G/DL (12.0-16.0) L Hematocrit 30.8 % (37.0-47.0) L 31.3 % (37.0-47.0) L Mean Corpuscular Volume 97 FL (80-99) 95 FL (80-99) Mean Corpuscular Hemoglobin 29.8 PG (27.0-31.0) 30.0 PG (27.0-31.0) Mean Corpuscular Hemoglobin Concent 30.9 G/DL (32.0-36.0) L 31.5 G/DL (32.0-36.0) L Red Cell Distribution Width 12.3 % (11.6-14.8) 12.1 % (11.6-14.8) Platelet Count 194 K/UL (150-450) 196 K/UL (150-450) Mean Platelet Volume 7.3 FL (6.5-10.1) 6.6 FL (6.5-10.1) Neutrophils (%) (Auto) 68.4 % (45.0-75.0) 64.5 % (45.0-75.0) Lymphocytes (%) (Auto) 16.1 % (20.0-45.0) L 21.1 % (20.0-45.0) Monocytes (%) (Auto) 9.3 % (1.0-10.0) 7.3 % (1.0-10.0) Eosinophils (%) (Auto) 4.4 % (0.0-3.0) H 5.9 % (0.0-3.0) H Basophils (%) (Auto) 1.9 % (0.0-2.0) 1.2 % (0.0-2.0) Erythrocyte Sedimentation Rate 100 MM/HR (0-30) H Sodium Level 140 MMOL/L (136-145) 140 MMOL/L (136-145) Potassium Level 3.5 MMOL/L (3.5-5.1) 3.2 MMOL/L (3.5-5.1) L Chloride Level 102 MMOL/L (98-107) 104 MMOL/L (98-107) Carbon Dioxide Level 31 MMOL/L (21-32) 29 MMOL/L (21-32) Anion Gap 7 mmol/L (5-15) 7 mmol/L (5-15) Blood Urea Nitrogen 13 mg/dL (7-18) 13 mg/dL (7-18) Creatinine 0.7 MG/DL (0.55-1.30) 0.7 MG/DL (0.55-1.30) Estimat Glomerular Filtration Rate mL/min (>60) mL/min (>60) Glucose Level 122 MG/DL (74-106) H 149 MG/DL (74-106) H Lactic Acid Level 0.90 mmol/L (0.66-2.22) Calcium Level 9.5 MG/DL (8.5-10.1) 9.1 MG/DL (8.5-10.1) Total Bilirubin 1.2 MG/DL (0.2-1.0) H 1.2 MG/DL (0.2-1.0) H Direct Bilirubin 0.2 MG/DL (0.0-0.3) 0.3 MG/DL (0.0-0.3) Aspartate Amino Transf (AST/SGOT) 27 U/L (15-37) 20 U/L (15-37) Alanine Aminotransferase (ALT/SGPT) 27 U/L (12-78) 25 U/L (12-78) Alkaline Phosphatase 69 U/L (46-116) 64 U/L (46-116) C-Reactive Protein, Quantitative 5.2 mg/dL (0.00-0.90) H Total Protein 7.3 G/DL (6.4-8.2) 7.0 G/DL (6.4-8.2) Albumin 3.2 G/DL (3.4-5.0) L 3.0 G/DL (3.4-5.0) L Globulin 4.1 g/dL 4.0 g/dL Albumin/Globulin Ratio 0.8 (1.0-2.7) L 0.8 (1.0-2.7) L Current Medications Medications (Trade) Dose Ordered Sig/Anisha Route PRN Reason Start Time Stop Time Status Last Admin Dose Admin Acetaminophen (Tylenol) 650 mg Q4H PRN ORAL fever 02/27/17 16:00 03/29/17 15:59 Acetaminophen/ Hydrocodone Bitart ([place] 10/325) 1 ea Q6H PRN ORAL moderate breakthrough pain 02/28/17 08:15 03/07/17 08:14 Albuterol/ Ipratropium (Albuterol/ Ipratropium) 3 ml EVERY 4 HOURS PRN HHN Shortness of Breath 02/27/17 16:00 03/04/17 15:59 Cefepime HCl 2 gm/ Dextrose 110 ml @ 220 mls/hr EVERY 12 HOURS IV 02/27/17 21:00 03/06/17 20:59 02/28/17 09:29 Cyclobenzaprine HCl (Flexeril) 10 mg THREE TIMES A DAY ORAL 02/27/17 18:00 03/29/17 17:59 02/28/17 09:25 Dextrose (Dextrose 50%) STAT PRN IV Hypoglycemia 02/27/17 16:00 03/29/17 15:59 Gabapentin (Neurontin) 100 mg THREE TIMES A DAY ORAL 02/28/17 09:00 03/30/17 08:59 02/28/17 09:25 Heparin Sodium (Porcine) (Heparin 5000 units/ml) 5,000 units EVERY 12 HOURS SUBQ 02/27/17 21:00 03/29/17 20:59 02/28/17 09:36 Lorazepam (Ativan) 1 mg Q4HR PRN ORAL For Anxiety 02/27/17 16:00 03/06/17 15:59 02/28/17 00:00 Morphine Sulfate (Morphine Sulfate) 4 mg Q4H PRN IVP Severe Pain (Pain Scale 7-10) 02/27/17 20:45 03/06/17 20:44 02/28/17 04:48 Nitroglycerin (Ntg) 0.4 mg Q5MINS PRN SL Prn Chest Pain 02/27/17 16:00 03/29/17 15:59 Ondansetron HCl (Zofran) 4 mg Q6H PRN IVP Nausea & Vomiting 02/27/17 16:00 03/29/17 15:59 Polyethylene Glycol (Miralax) 17 gm DAILYPRN PRN ORAL Constipation 02/27/17 16:00 03/29/17 15:59 Temazepam (Restoril) 15 mg HSPRN PRN ORAL Insomnia 02/27/17 16:00 03/06/17 15:59 02/28/17 00:00 Vancomycin HCl/ Dextrose 250 ml @ 125 mls/hr DAILY IVPB 02/27/17 18:00 03/04/17 17:59 02/28/17 10:55 REAGAN TERAN Feb 28, 2017 12:22
--- NOTE | 2017-02-28 13:42 | General Progress Note ---
Assessment/Plan Problem List: (1) Swelling of knee joint, right ICD Codes: M25.461 - Effusion, right knee SNOMED: 331645223 (2) Wound infection after surgery ICD Codes: T81.4XXA - Infection following a procedure, initial encounter SNOMED: 85671103, 557631720 Qualifiers: Qualified Codes: T81.4XXA - Infection following a procedure, initial encounter Status: stable, progressing, tolerating diet Assessment/Plan ot pt diet wound care abx pain control cbc bmp am Subjective Constitutional: Reports: weakness Allergies: Coded Allergies: No Known Allergies (Unverified , 10/03/16) All Systems: reviewed and negative except above Subjective sleepy in bed Objective Last 24 Hour Vital Signs Date Time Temp Pulse Resp B/P (MAP) Pulse Ox O2 Delivery O2 Flow Rate FiO2 02/28/17 12:36 98.1 84 18 175/98 98 02/28/17 07:59 98.7 78 18 133/74 100 Room Air 02/28/17 05:21 97.7 02/28/17 04:00 97.2 76 18 125/71 98 Room Air 02/28/17 00:00 97.7 83 19 129/60 99 Room Air 02/27/17 20:00 97.5 79 18 116/80 99 Room Air 02/27/17 17:30 98.2 81 17 137/74 97 Room Air 02/27/17 17:10 97.8 78 18 139/72 100 Room Air 02/27/17 17:09 97.8 02/27/17 14:40 97.9 79 18 141/73 99 Room Air Intake and Output 02/28/17 03/01/17 19:00 07:00 Intake Total 240 ml Balance 240 ml Intake Oral 240 ml Laboratory Tests 02/27/17 15:45: White Blood Count 8.7, Red Blood Count 3.19L, Hemoglobin 9.5L, Hematocrit 30.8L , Mean Corpuscular Volume 97, Mean Corpuscular Hemoglobin 29.8, Mean Corpuscular Hemoglobin Concent 30.9L, Red Cell Distribution Width 12.3, Platelet Count 194, Mean Platelet Volume 7.3, Neutrophils (%) (Auto) 68.4, Lymphocytes (%) (Auto) 16.1L, Monocytes (%) (Auto) 9.3, Eosinophils (%) (Auto) 4.4H, Basophils (%) (Auto) 1.9, Erythrocyte Sedimentation Rate 100H, Sodium Level 140, Potassium Level 3.5, Chloride Level 102, Carbon Dioxide Level 31, Anion Gap 7, Blood Urea Nitrogen 13, Creatinine 0.7, Estimat Glomerular Filtration Rate , Glucose Level 122H, Lactic Acid Level 0.90, Calcium Level 9.5 , Total Bilirubin 1.2H, Direct Bilirubin 0.2, Aspartate Amino Transf (AST/SGOT) 27, Alanine Aminotransferase (ALT/SGPT) 27, Alkaline Phosphatase 69, C-Reactive Protein, Quantitative 5.2H, Total Protein 7.3, Albumin 3.2L, Globulin 4.1, Albumin/Globulin Ratio 0.8L 02/28/17 07:50: White Blood Count 8.6, Red Blood Count 3.29L, Hemoglobin 9.9L, Hematocrit 31.3L , Mean Corpuscular Volume 95, Mean Corpuscular Hemoglobin 30.0, Mean Corpuscular Hemoglobin Concent 31.5L, Red Cell Distribution Width 12.1, Platelet Count 196, Mean Platelet Volume 6.6, Neutrophils (%) (Auto) 64.5, Lymphocytes (%) (Auto) 21.1, Monocytes (%) (Auto) 7.3, Eosinophils (%) (Auto) 5.9H, Basophils (%) (Auto) 1.2, Sodium Level 140, Potassium Level 3.2L, Chloride Level 104, Carbon Dioxide Level 29, Anion Gap 7, Blood Urea Nitrogen 13 , Creatinine 0.7, Estimat Glomerular Filtration Rate , Glucose Level 149H, Calcium Level 9.1, Total Bilirubin 1.2H, Direct Bilirubin 0.3, Aspartate Amino Transf (AST/SGOT) 20, Alanine Aminotransferase (ALT/SGPT) 25, Alkaline Phosphatase 64, Total Protein 7.0, Albumin 3.0L, Globulin 4.0, Albumin/Globulin Ratio 0.8L Height (Feet): 5 Height (Inches): 6.00 Weight (Pounds): 220 General Appearance: lethargic EENT: normal ENT inspection Neck: normal alignment Cardiovascular: normal peripheral pulses, normal rate, regular rhythm Respiratory/Chest: chest wall non-tender, lungs clear, normal breath sounds Abdomen: normal bowel sounds, non tender, soft Extremities: normal inspection Edema: 1+ Arm (L), 1+ Arm (R), 1+ Leg (L), 1+ Leg (R), 1+ Pedal (L), 1+ Pedal ( R), 1+ Generalized Edema: trace edema Neurologic: responsive, motor weakness Skin: normal pigmentation, warm/dry CHANCE DURHAM Feb 28, 2017 13:42
--- NOTE | 2017-02-28 14:07 | Diagnostic Imaging Report ---
APPROVED REPORT CPT Code: 14688 Present Symptoms Comments: R/O DVT BILATERAL: Imaging reveals a patent deep venous system bilaterally. There is no evidence of thrombus within the common femoral, proximal to mid femoral, popliteal or tibial segments. The greater saphenous veins are also within normal limits. Doppler indicates normal spontaneous flow within these segments. The distal superficial femoral veins not well visualized.
--- NOTE | 2017-02-28 14:13 | Pulmonology Progress Note ---
Assessment/Plan Problems: (1) Wound infection after surgery (2) Intractable neuropathic pain of foot (3) History of asthma (4) Swelling of knee joint, right Assessment/Plan improving getting better, wound care IV abx all labs and notes reviewed. Subjective ROS Limited/Unobtainable: No Constitutional: Reports: no symptoms HEENT: Repors: no symptoms Respiratory: Reports: no symptoms Cardiovascular: Reports: no symptoms Allergies: Coded Allergies: No Known Allergies (Unverified , 10/03/16) Objective Last 24 Hour Vital Signs Date Time Temp Pulse Resp B/P (MAP) Pulse Ox O2 Delivery O2 Flow Rate FiO2 02/28/17 13:55 78 144/77 02/28/17 12:36 98.1 84 18 175/98 98 02/28/17 07:59 98.7 78 18 133/74 100 Room Air 02/28/17 05:21 97.7 02/28/17 04:00 97.2 76 18 125/71 98 Room Air 02/28/17 00:00 97.7 83 19 129/60 99 Room Air 02/27/17 20:00 97.5 79 18 116/80 99 Room Air 02/27/17 17:30 98.2 81 17 137/74 97 Room Air 02/27/17 17:10 97.8 78 18 139/72 100 Room Air 02/27/17 17:09 97.8 02/27/17 14:40 97.9 79 18 141/73 99 Room Air Intake and Output 02/28/17 03/01/17 19:00 07:00 Intake Total 240 ml Balance 240 ml Intake Oral 240 ml General Appearance: WD/WN HEENT: normocephalic, atraumatic Respiratory/Chest: chest wall non-tender Cardiovascular: normal peripheral pulses, normal rate Abdomen: normal bowel sounds, soft, non tender Genitourinary: normal external genitalia Skin: no rash Neurologic/Psychiatric: nursing aide II-XII grossly normal, no motor/sensory deficits Laboratory Tests 02/27/17 15:45: White Blood Count 8.7, Red Blood Count 3.19L, Hemoglobin 9.5L, Hematocrit 30.8L , Mean Corpuscular Volume 97, Mean Corpuscular Hemoglobin 29.8, Mean Corpuscular Hemoglobin Concent 30.9L, Red Cell Distribution Width 12.3, Platelet Count 194, Mean Platelet Volume 7.3, Neutrophils (%) (Auto) 68.4, Lymphocytes (%) (Auto) 16.1L, Monocytes (%) (Auto) 9.3, Eosinophils (%) (Auto) 4.4H, Basophils (%) (Auto) 1.9, Erythrocyte Sedimentation Rate 100H, Sodium Level 140, Potassium Level 3.5, Chloride Level 102, Carbon Dioxide Level 31, Anion Gap 7, Blood Urea Nitrogen 13, Creatinine 0.7, Estimat Glomerular Filtration Rate , Glucose Level 122H, Lactic Acid Level 0.90, Calcium Level 9.5 , Total Bilirubin 1.2H, Direct Bilirubin 0.2, Aspartate Amino Transf (AST/SGOT) 27, Alanine Aminotransferase (ALT/SGPT) 27, Alkaline Phosphatase 69, C-Reactive Protein, Quantitative 5.2H, Total Protein 7.3, Albumin 3.2L, Globulin 4.1, Albumin/Globulin Ratio 0.8L 02/28/17 07:50: White Blood Count 8.6, Red Blood Count 3.29L, Hemoglobin 9.9L, Hematocrit 31.3L , Mean Corpuscular Volume 95, Mean Corpuscular Hemoglobin 30.0, Mean Corpuscular Hemoglobin Concent 31.5L, Red Cell Distribution Width 12.1, Platelet Count 196, Mean Platelet Volume 6.6, Neutrophils (%) (Auto) 64.5, Lymphocytes (%) (Auto) 21.1, Monocytes (%) (Auto) 7.3, Eosinophils (%) (Auto) 5.9H, Basophils (%) (Auto) 1.2, Sodium Level 140, Potassium Level 3.2L, Chloride Level 104, Carbon Dioxide Level 29, Anion Gap 7, Blood Urea Nitrogen 13 , Creatinine 0.7, Estimat Glomerular Filtration Rate , Glucose Level 149H, Calcium Level 9.1, Total Bilirubin 1.2H, Direct Bilirubin 0.3, Aspartate Amino Transf (AST/SGOT) 20, Alanine Aminotransferase (ALT/SGPT) 25, Alkaline Phosphatase 64, Total Protein 7.0, Albumin 3.0L, Globulin 4.0, Albumin/Globulin Ratio 0.8L Current Medications Medications (Trade) Dose Ordered Sig/Anisha Route PRN Reason Start Time Stop Time Status Last Admin Dose Admin Acetaminophen (Tylenol) 650 mg Q4H PRN ORAL fever 02/27/17 16:00 03/29/17 15:59 Acetaminophen/ Hydrocodone Bitart ([place] 10/325) 1 ea Q6H PRN ORAL moderate breakthrough pain 02/28/17 08:15 03/07/17 08:14 Albuterol/ Ipratropium (Albuterol/ Ipratropium) 3 ml EVERY 4 HOURS PRN HHN Shortness of Breath 02/27/17 16:00 03/04/17 15:59 Cefepime HCl 2 gm/ Dextrose 110 ml @ 220 mls/hr EVERY 12 HOURS IV 02/27/17 21:00 03/06/17 20:59 02/28/17 09:29 Cyclobenzaprine HCl (Flexeril) 10 mg THREE TIMES A DAY ORAL 02/27/17 18:00 03/29/17 17:59 02/28/17 09:25 Dextrose (Dextrose 50%) STAT PRN IV Hypoglycemia 02/27/17 16:00 03/29/17 15:59 Gabapentin (Neurontin) 100 mg THREE TIMES A DAY ORAL 02/28/17 09:00 03/30/17 08:59 02/28/17 09:25 Heparin Sodium (Porcine) (Heparin 5000 units/ml) 5,000 units EVERY 12 HOURS SUBQ 02/27/17 21:00 03/29/17 20:59 02/28/17 09:36 Lorazepam (Ativan) 1 mg Q4HR PRN ORAL For Anxiety 02/27/17 16:00 03/06/17 15:59 02/28/17 00:00 Morphine Sulfate (Morphine Sulfate) 4 mg Q4H PRN IVP Severe Pain (Pain Scale 7-10) 02/27/17 20:45 03/06/17 20:44 02/28/17 04:48 Nitroglycerin (Ntg) 0.4 mg Q5MINS PRN SL Prn Chest Pain 02/27/17 16:00 03/29/17 15:59 Ondansetron HCl (Zofran) 4 mg Q6H PRN IVP Nausea & Vomiting 02/27/17 16:00 03/29/17 15:59 Polyethylene Glycol (Miralax) 17 gm DAILYPRN PRN ORAL Constipation 02/27/17 16:00 03/29/17 15:59 Temazepam (Restoril) 15 mg HSPRN PRN ORAL Insomnia 02/27/17 16:00 03/06/17 15:59 02/28/17 00:00 Vancomycin HCl/ Dextrose 250 ml @ 125 mls/hr DAILY IVPB 02/27/17 18:00 03/04/17 17:59 02/28/17 10:55 [id number] RABAGO Feb 28, 2017 14:13
[2017-02-28] MEDS: Norco 10mg/325mg tab ORAL PRN (20:51)
--- NOTE | 2017-02-28 23:30 | Consultation ---
DATE OF CONSULTATION: 02/28/2017 INFECTIOUS DISEASE CONSULTATION This consultation is for coverage of Dr. Ward. CONSULTING PHYSICIAN: Marcos Burgos M.D. PRIMARY ATTENDING PHYSICIAN: Brandon Henry D.O. REASON FOR CONSULTATION: Surgical site infection, right knee cellulitis. HISTORY OF PRESENT ILLNESS: This is a 71-year-old, female admitted last night from a assisted facility. The patient had knee replacement surgery done on 02/20/2017. After surgery, she was transferred to rehab. In rehab, it was noticed that the patient developed a blister at the site of surgery. The patient was back to [facility] and the blister was emptied. After transfer to senior living, she developed more blisters and came to the hospital. PAST MEDICAL HISTORY: Significant for hypertension, obesity, osteoarthritis of knees, right knee replacement, and asthma. ALLERGIES: No known drug allergies. MEDICATIONS: Getting gabapentin, [place], heparin, subcutaneous morphine sulfate, , benazepril, vancomycin, nitroglycerin, temazepam, Zofran, MiraLax, Tylenol, and DuoNeb inhaler. SOCIAL HISTORY: . Has grown up children. Denies alcohol, drug abuse, or smoking. REVIEW OF SYSTEMS: No fever. No chills. No nausea. No vomiting. No weight loss. Has pain in the site of surgery, but can walk with help. PHYSICAL EXAMINATION: GENERAL APPEARANCE: No acute distress. Awake and alert. VITAL SIGNS: Temperature 98.7 degrees, pulse 78, blood pressure 133/74. HEAD AND NECK: [place] conjunctivae. HEART: S1 and S2 regular. LUNGS: Clear. ABDOMEN: Soft and nontender. EXTREMITIES: Edema in right lower extremity. Has surgical wound in the right knee with closed blister around it, especially in the lower part of it. NEUROLOGIC: Awake, alert, and oriented x3. LABORATORY AND DIAGNOSTIC DATA: WBC 8.6, hemoglobin 9.9, hematocrit 31.3, platelets 196. Sodium 140, potassium 3.2, chloride 104, bicarbonate 29, glucose 149. Bilirubin is 1.2. IMPRESSION: 1. Cellulitis of right knee in a patient who has had knee replacement. One of the blisters was opened and sample was obtained for culture. 2. Obesity. 3. Anemia. 4. Osteoarthritis of knees. RECOMMENDATION: We will continue with cefepime and vancomycin. We will follow up the cultures. I would be in touch with the orthopedic surgeon. At the end of my exam, I thank Dr. Brandon Henry for involving me in the care of this patient. Marcos Burgos M.D. DR: Eric JOB#: [id number] CC:
[2017-03-01 00:26] VITALS: BP 130/70
[2017-03-01] MEDS: Morphine Sulfate 4mg/ml Inj IVP PRN (00:28)
[2017-03-01] MEDS: LORazepam 1mg tab ORAL PRN ×2 (02:18→23:28)
[2017-03-01 04:00] VITALS: BP 135/84
--- NOTE | 2017-03-01 04:00 | Consultation ---
DATE OF CONSULTATION: 02/28/2017 HISTORY OF PRESENT ILLNESS: The patient is a pleasant female who underwent a total knee arthroplasty less than a week ago at [facility]. She then developed postoperative swelling, developed serous blisters along the incision site. She was instructed to do some local wound care. Subsequently, she was sent by the rehabilitation center back to [facility] where she was admitted for possible infection. Orthopedic consultation has been obtained for further care and recommendation. PHYSICAL EXAMINATION: EXTREMITIES: The incision is clean, dry, and intact. No fracture. Blisters are healing well. Posterior calf is soft. A +1 pitting edema in the right lower extremity. ASSESSMENT: 1. Status post right total knee arthroplasty. 2. Superficial blisters, right leg. DISCUSSION: At this point, she does have an infection. I am not sure why she is on vancomycin. She has local wound care. They can keep her on Keflex oral antibiotics to prevent secondary cellulitis from occurring at this point. She can follow up as outpatient in 2 weeks. Kaz Hope M.D. DR: RUIZ JOB#: [id number] CC:
[2017-03-01] MEDS: Norco 10mg/325mg tab ORAL PRN ×3 (05:33→20:28)
[2017-03-01 07:38] LABS: BASOPHILS % (AUTO) 1.2 % (0.0-2.0); EOSINOPHILS % (AUTO) 6.5 % (0.0-3.0); LYMPHOCYTES % (AUTO) 27.2 % (20.0-45.0); MEAN CORPUSCULAR HEMOGLOBIN 31.7 PG (27.0-31.0); MEAN CORPUSCULAR HGB CONC 33.7 G/DL (32.0-36.0); MEAN CORPUSCULAR VOLUME 94 FL (80-99); MEAN PLATELET VOLUME 7.4 FL (6.5-10.1); MONOCYTES % (AUTO) 8.4 % (1.0-10.0); NEUTROPHILS % (AUTO) 56.7 % (45.0-75.0); PLATELET COUNT 211 K/UL (150-450); RED BLOOD COUNT 3.03 M/UL (4.20-5.40); RED CELL DISTRIBUTION WIDTH 12.4 % (11.6-14.8); WHITE BLOOD COUNT 7.8 K/UL (4.8-10.8)
[2017-03-01 07:48] LABS: ANION GAP 8 mmol/L (5-15); CARBON DIOXIDE 26 MMOL/L (21-32); CHLORIDE 106 MMOL/L (98-107); CREATININE 0.6 MG/DL (0.55-1.30); POTASSIUM 3.6 MMOL/L (3.5-5.1); SODIUM 140 MMOL/L (136-145)
[2017-03-01 08:00] VITALS: BP 150/80
--- NOTE | 2017-03-01 08:20 | General Progress Note ---
Assessment/Plan Problem List: (1) Swelling of knee joint, right ICD Codes: M25.461 - Effusion, right knee SNOMED: 970882938 (2) Wound infection after surgery ICD Codes: T81.4XXA - Infection following a procedure, initial encounter SNOMED: [id number], [id number] Qualifiers: Qualified Codes: T81.4XXA - Infection following a procedure, initial encounter Status: stable, progressing, tolerating diet Assessment/Plan ot pt diet wound care abx pain control cbc bmp am Subjective Constitutional: Reports: weakness Allergies: Coded Allergies: No Known Allergies (Unverified , 10/03/16) All Systems: reviewed and negative except above Subjective sleepy in bed Objective Last 24 Hour Vital Signs Date Time Temp Pulse Resp B/P (MAP) Pulse Ox O2 Delivery O2 Flow Rate FiO2 03/01/17 04:00 98.3 77 17 135/84 100 Room Air 03/01/17 00:26 98.4 80 19 130/70 96 Room Air 02/28/17 20:55 98.6 79 18 135/68 97 Room Air 02/28/17 19:48 99 18 Room Air 02/28/17 16:00 98.9 83 18 136/68 99 Room Air 02/28/17 13:55 78 144/77 02/28/17 12:36 98.1 84 18 175/98 98 Laboratory Tests 03/01/17 06:15: White Blood Count 7.8, Red Blood Count 3.03L, Hemoglobin 9.6L, Hematocrit 28.5L , Mean Corpuscular Volume 94, Mean Corpuscular Hemoglobin 31.7H, Mean Corpuscular Hemoglobin Concent 33.7, Red Cell Distribution Width 12.4, Platelet Count 211, Mean Platelet Volume 7.4, Neutrophils (%) (Auto) 56.7, Lymphocytes (% ) (Auto) 27.2, Monocytes (%) (Auto) 8.4, Eosinophils (%) (Auto) 6.5H, Basophils (%) (Auto) 1.2, Sodium Level 140, Potassium Level 3.6, Chloride Level 106, Carbon Dioxide Level 26, Anion Gap 8, Blood Urea Nitrogen 13, Creatinine 0.6, Estimat Glomerular Filtration Rate , Glucose Level 109H, Calcium Level 9.0 Height (Feet): 5 Height (Inches): 6.00 Weight (Pounds): 220 General Appearance: lethargic EENT: normal ENT inspection Neck: normal alignment Cardiovascular: normal peripheral pulses, normal rate, regular rhythm Respiratory/Chest: chest wall non-tender, lungs clear, normal breath sounds Abdomen: normal bowel sounds, non tender, soft Extremities: normal inspection Edema: 1+ Arm (L), 1+ Arm (R), 1+ Leg (L), 1+ Leg (R), 1+ Pedal (L), 1+ Pedal ( R), 1+ Generalized Edema: trace edema Neurologic: responsive, motor weakness Skin: normal pigmentation, warm/dry CHANCE DURHAM Mar 01, 2017 08:20
--- NOTE | 2017-03-01 08:44 | Pulmonology Progress Note ---
Assessment/Plan Problems: (1) Wound infection after surgery (2) Intractable neuropathic pain of foot (3) History of asthma (4) Swelling of knee joint, right Assessment/Plan improving getting better, wound care IV abx all labs and notes reviewed. Subjective ROS Limited/Unobtainable: No Constitutional: Reports: no symptoms HEENT: Repors: no symptoms Respiratory: Reports: no symptoms Allergies: Coded Allergies: No Known Allergies (Unverified , 10/03/16) Objective Last 24 Hour Vital Signs Date Time Temp Pulse Resp B/P (MAP) Pulse Ox O2 Delivery O2 Flow Rate FiO2 03/01/17 08:13 99 18 Room Air 03/01/17 04:00 98.3 77 17 135/84 100 Room Air 03/01/17 00:26 98.4 80 19 130/70 96 Room Air 02/28/17 20:55 98.6 79 18 135/68 97 Room Air 02/28/17 19:48 99 18 Room Air 02/28/17 16:00 98.9 83 18 136/68 99 Room Air 02/28/17 13:55 78 144/77 02/28/17 12:36 98.1 84 18 175/98 98 General Appearance: WD/WN HEENT: normocephalic, atraumatic Respiratory/Chest: chest wall non-tender, normal breath sounds Cardiovascular: normal peripheral pulses, normal rate Abdomen: normal bowel sounds, soft, non tender Genitourinary: normal external genitalia Extremities: no clubbing Microbiology Date/Time Source Procedure Growth Status 02/27/17 15:55 Blood Blood Culture - Preliminary NO GROWTH AFTER 24 HOURS Resulted 02/27/17 15:45 Blood Blood Culture - Preliminary NO GROWTH AFTER 24 HOURS Resulted 02/27/17 16:10 Nasal Nares MRSA Culture - Final NO METHICILLIN RESISTANT STAPH AUREUS... Complete 02/27/17 16:10 Rectum VRE Culture - Final NO VANCOMYCIN RESISTANT ENTEROCOCCUS ... Complete Laboratory Tests 03/01/17 06:15: White Blood Count 7.8, Red Blood Count 3.03L, Hemoglobin 9.6L, Hematocrit 28.5L , Mean Corpuscular Volume 94, Mean Corpuscular Hemoglobin 31.7H, Mean Corpuscular Hemoglobin Concent 33.7, Red Cell Distribution Width 12.4, Platelet Count 211, Mean Platelet Volume 7.4, Neutrophils (%) (Auto) 56.7, Lymphocytes (% ) (Auto) 27.2, Monocytes (%) (Auto) 8.4, Eosinophils (%) (Auto) 6.5H, Basophils (%) (Auto) 1.2, Sodium Level 140, Potassium Level 3.6, Chloride Level 106, Carbon Dioxide Level 26, Anion Gap 8, Blood Urea Nitrogen 13, Creatinine 0.6, Estimat Glomerular Filtration Rate , Glucose Level 109H, Calcium Level 9.0 Current Medications Medications (Trade) Dose Ordered Sig/Anisha Route PRN Reason Start Time Stop Time Status Last Admin Dose Admin Acetaminophen (Tylenol) 650 mg Q4H PRN ORAL fever 02/27/17 16:00 03/29/17 15:59 Acetaminophen/ Hydrocodone Bitart ([place] 10/325) 1 ea Q6H PRN ORAL moderate breakthrough pain 02/28/17 08:15 03/07/17 08:14 03/01/17 05:33 Albuterol/ Ipratropium (Albuterol/ Ipratropium) 3 ml EVERY 4 HOURS PRN HHN Shortness of Breath 02/27/17 16:00 03/04/17 15:59 Atenolol (Tenormin) 25 mg DAILY ORAL 03/01/17 09:00 03/31/17 08:59 Cefepime HCl 2 gm/ Dextrose 110 ml @ 220 mls/hr EVERY 12 HOURS IV 02/27/17 21:00 03/06/17 20:59 02/28/17 20:51 Cyclobenzaprine HCl (Flexeril) 10 mg THREE TIMES A DAY ORAL 02/27/17 18:00 03/29/17 17:59 02/28/17 18:22 Dextrose (Dextrose 50%) STAT PRN IV Hypoglycemia 02/27/17 16:00 03/29/17 15:59 Gabapentin (Neurontin) 100 mg THREE TIMES A DAY ORAL 02/28/17 09:00 03/30/17 08:59 02/28/17 18:22 Heparin Sodium (Porcine) (Heparin 5000 units/ml) 5,000 units EVERY 12 HOURS SUBQ 02/27/17 21:00 03/29/17 20:59 02/28/17 20:54 Hydrochlorothiazide (Hydrodiuril) 25 mg DAILY ORAL 03/01/17 09:00 03/31/17 08:59 Lorazepam (Ativan) 1 mg Q4HR PRN ORAL For Anxiety 02/27/17 16:00 03/06/17 15:59 03/01/17 02:18 Morphine Sulfate (Morphine Sulfate) 4 mg Q4H PRN IVP Severe Pain (Pain Scale 7-10) 02/27/17 20:45 03/06/17 20:44 03/01/17 00:28 Nitroglycerin (Ntg) 0.4 mg Q5MINS PRN SL Prn Chest Pain 02/27/17 16:00 03/29/17 15:59 Ondansetron HCl (Zofran) 4 mg Q6H PRN IVP Nausea & Vomiting 02/27/17 16:00 03/29/17 15:59 Polyethylene Glycol (Miralax) 17 gm DAILYPRN PRN ORAL Constipation 02/27/17 16:00 03/29/17 15:59 02/28/17 22:40 Temazepam (Restoril) 15 mg HSPRN PRN ORAL Insomnia 02/27/17 16:00 03/06/17 15:59 02/28/17 22:37 Vancomycin HCl (Vanco rx to dose) 1 ea DAILY PRN MISC PER RX PROTOCOL 02/28/17 16:00 03/30/17 15:59 Vancomycin HCl/ Dextrose 250 ml @ 125 mls/hr DAILY IVPB 02/27/17 18:00 03/04/17 17:59 02/28/17 10:55 [id number] RABAGO Mar 01, 2017 08:44
[2017-03-01] MEDS: Atenolol 25mg tab ORAL SCH (08:54)
[2017-03-01] MEDS: Cyclobenzaprine 10mg Tab ORAL SCH ×3 (08:55→17:32)
[2017-03-01] MEDS: Heparin 5000 units/ml inj SUBQ SCH ×2 (08:56→20:14)
[2017-03-01] MEDS: Cefepime HCl 2 GM in D5W 110 ML IV SCH (08:56)
[2017-03-01 12:00] VITALS: BP 139/73
--- NOTE | 2017-03-01 12:05 | Infectious Diseases Prog Note ---
Assessment/Plan Assessment/Plan antibiotics : vancomycin iv, cefepime A 1. right knee cellulitis 2. s/p right knee arthroplasty 3. osteoarthritis P 1. continue vancomycin iv, cefepime 2. will follow up cultures Subjective Constitutional: Denies: fever, chills Respiratory: Denies: shortness of breath, dry cough Gastrointestinal/Abdominal: Denies: nausea, vomiting, diarrhea Musculoskeletal: Reports: pain - right knee Allergies: Coded Allergies: No Known Allergies (Unverified , 10/03/16) Objective Vital Signs Last 24 Hour Vital Signs Date Time Temp Pulse Resp B/P (MAP) Pulse Ox O2 Delivery O2 Flow Rate FiO2 03/01/17 08:54 99 135/84 03/01/17 08:13 99 18 Room Air 03/01/17 08:00 98.4 87 20 150/80 100 Room Air 03/01/17 04:00 98.3 77 17 135/84 100 Room Air 03/01/17 00:26 98.4 80 19 130/70 96 Room Air 02/28/17 20:55 98.6 79 18 135/68 97 Room Air 02/28/17 19:48 99 18 Room Air 02/28/17 16:00 98.9 83 18 136/68 99 Room Air 02/28/17 13:55 78 144/77 02/28/17 12:36 98.1 84 18 175/98 98 Height (Feet): 5 Height (Inches): 6.00 Weight (Pounds): 220 Respiratory/Chest: lungs clear Cardiovascular: normal rate, regular rhythm, no gallop/murmur Abdomen: soft, non tender Extremities: no edema, other - right knee in dressings Microbiology Date/Time Source Procedure Growth Status 02/27/17 15:55 Blood Blood Culture - Preliminary NO GROWTH AFTER 24 HOURS Resulted 02/27/17 15:45 Blood Blood Culture - Preliminary NO GROWTH AFTER 24 HOURS Resulted 02/27/17 16:10 Nasal Nares MRSA Culture - Final NO METHICILLIN RESISTANT STAPH AUREUS... Complete 02/27/17 16:10 Rectum VRE Culture - Final NO VANCOMYCIN RESISTANT ENTEROCOCCUS ... Complete Laboratory Tests Test 03/01/17 06:15 White Blood Count 7.8 K/UL (4.8-10.8) Red Blood Count 3.03 M/UL (4.20-5.40) L Hemoglobin 9.6 G/DL (12.0-16.0) L Hematocrit 28.5 % (37.0-47.0) L Mean Corpuscular Volume 94 FL (80-99) Mean Corpuscular Hemoglobin 31.7 PG (27.0-31.0) H Mean Corpuscular Hemoglobin Concent 33.7 G/DL (32.0-36.0) Red Cell Distribution Width 12.4 % (11.6-14.8) Platelet Count 211 K/UL (150-450) Mean Platelet Volume 7.4 FL (6.5-10.1) Neutrophils (%) (Auto) 56.7 % (45.0-75.0) Lymphocytes (%) (Auto) 27.2 % (20.0-45.0) Monocytes (%) (Auto) 8.4 % (1.0-10.0) Eosinophils (%) (Auto) 6.5 % (0.0-3.0) H Basophils (%) (Auto) 1.2 % (0.0-2.0) Sodium Level 140 MMOL/L (136-145) Potassium Level 3.6 MMOL/L (3.5-5.1) Chloride Level 106 MMOL/L (98-107) Carbon Dioxide Level 26 MMOL/L (21-32) Anion Gap 8 mmol/L (5-15) Blood Urea Nitrogen 13 mg/dL (7-18) Creatinine 0.6 MG/DL (0.55-1.30) Estimat Glomerular Filtration Rate mL/min (>60) Glucose Level 109 MG/DL (74-106) H Calcium Level 9.0 MG/DL (8.5-10.1) IRIS WOODRUFF Mar 01, 2017 12:05
[2017-03-01] MEDS: Vancomycin 1.5 GM/D5W 250ML IVPB SCH (12:10)
[2017-03-01 16:00] VITALS: BP 141/78
[2017-03-01 20:49] VITALS: BP 141/83
[2017-03-02 00:35] VITALS: BP 140/75
[2017-03-02] MEDS: Norco 10mg/325mg tab ORAL PRN ×3 (03:14→17:37)
[2017-03-02 04:44] VITALS: BP 138/77
[2017-03-02 08:00] VITALS: BP 141/64
[2017-03-02] MEDS: Cefepime HCl 2 GM in D5W 110 ML IV SCH (08:20)
[2017-03-02 08:32] LABS: BASOPHILS % (AUTO) 1.2 % (0.0-2.0); EOSINOPHILS % (AUTO) 6.4 % (0.0-3.0); LYMPHOCYTES % (AUTO) 27.2 % (20.0-45.0); MEAN CORPUSCULAR HEMOGLOBIN 31.4 PG (27.0-31.0); MEAN CORPUSCULAR HGB CONC 32.6 G/DL (32.0-36.0); MEAN CORPUSCULAR VOLUME 96 FL (80-99); MEAN PLATELET VOLUME 6.7 FL (6.5-10.1); MONOCYTES % (AUTO) 5.8 % (1.0-10.0); NEUTROPHILS % (AUTO) 59.4 % (45.0-75.0); PLATELET COUNT 230 K/UL (150-450); RED BLOOD COUNT 3.27 M/UL (4.20-5.40); RED CELL DISTRIBUTION WIDTH 13.1 % (11.6-14.8); WHITE BLOOD COUNT 7.6 K/UL (4.8-10.8)
[2017-03-02 08:37] LABS: ANION GAP 7 mmol/L (5-15); CALCIUM 9.2 MG/DL (8.5-10.1); CARBON DIOXIDE 28 MMOL/L (21-32); CHLORIDE 106 MMOL/L (98-107); CREATININE 0.7 MG/DL (0.55-1.30); POTASSIUM 3.9 MMOL/L (3.5-5.1); SODIUM 140 MMOL/L (136-145)
[2017-03-02 08:39] LABS: PROTHROMBIN TIME 10.7 SEC (9.30-11.50)
[2017-03-02 08:43] LABS: LACTATE DEHYDROGENASE 198 U/L (81-234)
--- NOTE | 2017-03-02 08:44 | General Progress Note ---
Assessment/Plan Problem List: (1) Swelling of knee joint, right ICD Codes: M25.461 - Effusion, right knee SNOMED: 850831395 (2) Wound infection after surgery ICD Codes: T81.4XXA - Infection following a procedure, initial encounter SNOMED: [id number], [id number] Qualifiers: Qualified Codes: T81.4XXA - Infection following a procedure, initial encounter Status: stable, progressing, tolerating diet Assessment/Plan ot pt diet wound care abx pain control cbc bmp am dc plan Subjective Constitutional: Reports: weakness Allergies: Coded Allergies: No Known Allergies (Unverified , 10/03/16) All Systems: reviewed and negative except above Subjective sleepy in bed Objective Last 24 Hour Vital Signs Date Time Temp Pulse Resp B/P (MAP) Pulse Ox O2 Delivery O2 Flow Rate FiO2 03/02/17 07:33 79 18 Room Air 03/02/17 04:44 98.9 70 20 138/77 98 Room Air 03/02/17 00:35 98.8 72 20 140/75 98 Room Air 03/01/17 22:07 72 18 Room Air 03/01/17 20:49 99.0 78 18 141/83 99 Room Air 03/01/17 16:00 97.7 86 20 141/78 98 Room Air 03/01/17 12:00 98.5 73 20 139/73 99 Room Air 03/01/17 08:54 99 135/84 Laboratory Tests 03/02/17 06:54: White Blood Count 7.6, Red Blood Count 3.27L, Hemoglobin 10.3L, Hematocrit 31.5L , Mean Corpuscular Volume 96, Mean Corpuscular Hemoglobin 31.4H, Mean Corpuscular Hemoglobin Concent 32.6, Red Cell Distribution Width 13.1, Platelet Count 230, Mean Platelet Volume 6.7, Neutrophils (%) (Auto) 59.4, Lymphocytes (% ) (Auto) 27.2, Monocytes (%) (Auto) 5.8, Eosinophils (%) (Auto) 6.4H, Basophils (%) (Auto) 1.2, Erythrocyte Sedimentation Rate [Pending], Reticulocyte Count [ Pending], Prothrombin Time [Pending], Prothromb Time International Ratio [ Pending], Activated Partial Thromboplast Time [Pending], Sodium Level 140, Potassium Level 3.9, Chloride Level 106, Carbon Dioxide Level 28, Anion Gap 7, Blood Urea Nitrogen 12, Creatinine 0.7, Estimat Glomerular Filtration Rate , Glucose Level 95, Calcium Level 9.2, Iron Level [Pending], Unsaturated Iron Binding [Pending], Lactate Dehydrogenase [Pending], Vitamin B12 Level [Pending] , Folate [Pending] Height (Feet): 5 Height (Inches): 6.00 Weight (Pounds): 220 General Appearance: alert EENT: normal ENT inspection Neck: normal alignment Cardiovascular: normal peripheral pulses, normal rate, regular rhythm Respiratory/Chest: chest wall non-tender, lungs clear, normal breath sounds Abdomen: normal bowel sounds, non tender, soft Extremities: normal inspection Edema: 1+ Arm (L), 1+ Arm (R), 1+ Leg (L), 1+ Leg (R), 1+ Pedal (L), 1+ Pedal ( R), 1+ Generalized Edema: trace edema Neurologic: responsive, motor weakness Skin: normal pigmentation, warm/dry CHANCE DURHAM Mar 02, 2017 08:44
[2017-03-02 08:45] LABS: IRON 54 ug/dL (50-175); TOTAL IRON BINDING CAPACITY 264 ug/dL (250-450)
[2017-03-02] MEDS: Atenolol 25mg tab ORAL SCH (09:02)
[2017-03-02] MEDS: Cyclobenzaprine 10mg Tab ORAL SCH ×3 (09:03→17:37)
[2017-03-02] MEDS: Vancomycin 1.5 GM/D5W 250ML IVPB SCH (09:03)
[2017-03-02] MEDS: Heparin 5000 units/ml inj SUBQ SCH ×2 (09:09→20:33)
[2017-03-02 09:57] LABS: ERYTHROCYTE SEDIMENTATION RATE 100 MM/HR (0-30); PATH BLOOD SMEAR/OMC SENT TO PATHOLOGIST
--- NOTE | 2017-03-02 10:25 | General Progress Note ---
Assessment/Plan Assessment/Plan (1) B/l Knee Pain (2) B/l Knee OA (3) S/p Right knee TKR (4) Neuropathic pain Patient will be continued on morphine, [place] and Neurontin. The patient was discussed with Dr. Ruiz and Dr. Ruiz concurred. Subjective Date patient seen: Mar 02, 2017 Time patient seen: 09:45 - am Allergies: Coded Allergies: No Known Allergies (Unverified , 10/03/16) Subjective REVIEW OF SYSTEMS: Denies rash, fever, chills, sweating, dizziness, drowsiness, blurred vision, sore throat, or change in her weight. No shortness of breath or chest pain. No nausea, vomiting, or blood in stool or urine. No bowel or bladder incontinence. She is complaining of bilateral knee pain. SUBJECTIVE: Patient is in bed reports that the pain has been tolerated and controlled on the medication. Objective Last 24 Hour Vital Signs Date Time Temp Pulse Resp B/P (MAP) Pulse Ox O2 Delivery O2 Flow Rate FiO2 03/02/17 10:02 98.0 03/02/17 10:02 98.0 03/02/17 09:02 88 141/64 03/02/17 08:00 98.0 88 18 141/64 97 Room Air 03/02/17 07:33 79 18 Room Air 03/02/17 04:44 98.9 70 20 138/77 98 Room Air 03/02/17 00:35 98.8 72 20 140/75 98 Room Air 03/01/17 22:07 72 18 Room Air 03/01/17 20:49 99.0 78 18 141/83 99 Room Air 03/01/17 16:00 97.7 86 20 141/78 98 Room Air 03/01/17 12:00 98.5 73 20 139/73 99 Room Air Intake and Output 03/02/17 03/03/17 19:00 07:00 Intake Total 240 ml Balance 240 ml Intake Oral 240 ml Laboratory Tests 03/02/17 06:54: White Blood Count 7.6, Red Blood Count 3.27L, Hemoglobin 10.3L, Hematocrit 31.5L , Mean Corpuscular Volume 96, Mean Corpuscular Hemoglobin 31.4H, Mean Corpuscular Hemoglobin Concent 32.6, Red Cell Distribution Width 13.1, Platelet Count 230, Mean Platelet Volume 6.7, Neutrophils (%) (Auto) 59.4, Lymphocytes (% ) (Auto) 27.2, Monocytes (%) (Auto) 5.8, Eosinophils (%) (Auto) 6.4H, Basophils (%) (Auto) 1.2, Erythrocyte Sedimentation Rate 100H, Reticulocyte Count [Pending ], Prothrombin Time 10.7, Prothromb Time International Ratio 1.0, Activated Partial Thromboplast Time 27, Sodium Level 140, Potassium Level 3.9, Chloride Level 106, Carbon Dioxide Level 28, Anion Gap 7, Blood Urea Nitrogen 12, Creatinine 0.7, Estimat Glomerular Filtration Rate , Glucose Level 95, Calcium Level 9.2, Iron Level 54, Total Iron Binding Capacity 264, Percent Iron Saturation 21, Unsaturated Iron Binding 210, Lactate Dehydrogenase 198, Vitamin B12 Level 641, Folate 13.0 03/02/17 08:02: Vancomycin Level Trough 5.3 Height (Feet): 5 Height (Inches): 6.00 Weight (Pounds): 220 Objective GENERAL: Alert, awake, and oriented x3. HEENT: PERRLA. NECK: Range of motion is full in all directions. No tenderness. There is no adenopathy. LUNGS: Clear. HEART: S1 and S2 regular. ABDOMEN: Obese. EXTREMITIES: No cyanosis. No clubbing. Swelling noted and bandages applied to right knee with tenderness to palpation. NEUROLOGICAL EXAM: No focal deficit. MATEO ENGLE Mar 02, 2017 10:25
--- NOTE | 2017-03-02 10:40 | Infectious Diseases Prog Note ---
Assessment/Plan Assessment/Plan A 1. right knee cellulitis 2. s/p right knee arthroplasty 3. osteoarthritis P 1. continue vancomycin iv, cefepime 2. will follow up cultures, if remain negative will discharge with PO antibiotic Subjective ROS Limited/Unobtainable: No Constitutional: Reports: other - doing better Gastrointestinal/Abdominal: Reports: no symptoms Genitourinary: Reports: no symptoms Musculoskeletal: Reports: pain, other - mild in right knee Allergies: Coded Allergies: No Known Allergies (Unverified , 10/03/16) Objective Vital Signs Last 24 Hour Vital Signs Date Time Temp Pulse Resp B/P (MAP) Pulse Ox O2 Delivery O2 Flow Rate FiO2 03/02/17 10:02 98.0 03/02/17 10:02 98.0 03/02/17 09:02 88 141/64 03/02/17 08:00 98.0 88 18 141/64 97 Room Air 03/02/17 07:33 79 18 Room Air 03/02/17 04:44 98.9 70 20 138/77 98 Room Air 03/02/17 00:35 98.8 72 20 140/75 98 Room Air 03/01/17 22:07 72 18 Room Air 03/01/17 20:49 99.0 78 18 141/83 99 Room Air 03/01/17 16:00 97.7 86 20 141/78 98 Room Air 03/01/17 12:00 98.5 73 20 139/73 99 Room Air Height (Feet): 5 Height (Inches): 6.00 Weight (Pounds): 220 General Appearance: no acute distress HEENT: mucous membranes moist Respiratory/Chest: lungs clear Cardiovascular: normal rate Abdomen: soft, non tender Extremities: other - edema of right leg Skin: other - surgical wound of right knee Microbiology Date/Time Source Procedure Growth Status 02/27/17 15:55 Blood Blood Culture - Preliminary NO GROWTH AFTER 48 HOURS Resulted 02/27/17 15:45 Blood Blood Culture - Preliminary NO GROWTH AFTER 48 HOURS Resulted 02/27/17 16:10 Nasal Nares MRSA Culture - Final NO METHICILLIN RESISTANT STAPH AUREUS... Complete 03/01/17 00:10 Knee Right Gram Stain - Final Resulted 03/01/17 00:10 Knee Right Wound Culture - Preliminary NO GROWTH Resulted 02/27/17 16:10 Rectum VRE Culture - Final NO VANCOMYCIN RESISTANT ENTEROCOCCUS ... Complete Laboratory Tests Test 03/02/17 06:54 03/02/17 08:02 White Blood Count 7.6 K/UL (4.8-10.8) Red Blood Count 3.27 M/UL (4.20-5.40) L Hemoglobin 10.3 G/DL (12.0-16.0) L Hematocrit 31.5 % (37.0-47.0) L Mean Corpuscular Volume 96 FL (80-99) Mean Corpuscular Hemoglobin 31.4 PG (27.0-31.0) H Mean Corpuscular Hemoglobin Concent 32.6 G/DL (32.0-36.0) Red Cell Distribution Width 13.1 % (11.6-14.8) Platelet Count 230 K/UL (150-450) Mean Platelet Volume 6.7 FL (6.5-10.1) Neutrophils (%) (Auto) 59.4 % (45.0-75.0) Lymphocytes (%) (Auto) 27.2 % (20.0-45.0) Monocytes (%) (Auto) 5.8 % (1.0-10.0) Eosinophils (%) (Auto) 6.4 % (0.0-3.0) H Basophils (%) (Auto) 1.2 % (0.0-2.0) Erythrocyte Sedimentation Rate 100 MM/HR (0-30) H Reticulocyte Count Pending Prothrombin Time 10.7 SEC (9.30-11.50) Prothromb Time International Ratio 1.0 (0.9-1.1) Activated Partial Thromboplast Time 27 SEC (23-33) Sodium Level 140 MMOL/L (136-145) Potassium Level 3.9 MMOL/L (3.5-5.1) Chloride Level 106 MMOL/L (98-107) Carbon Dioxide Level 28 MMOL/L (21-32) Anion Gap 7 mmol/L (5-15) Blood Urea Nitrogen 12 mg/dL (7-18) Creatinine 0.7 MG/DL (0.55-1.30) Estimat Glomerular Filtration Rate mL/min (>60) Glucose Level 95 MG/DL (74-106) Calcium Level 9.2 MG/DL (8.5-10.1) Iron Level 54 ug/dL (50-175) Total Iron Binding Capacity 264 ug/dL (250-450) Percent Iron Saturation 21 % (15-50) Unsaturated Iron Binding 210 ug/dL (112-346) Lactate Dehydrogenase 198 U/L (81-234) Vitamin B12 Level 641 PG/ML (193-986) Folate 13.0 NG/ML (3.1-17.5) Vancomycin Level Trough 5.3 ug/mL (5.0-12.0) Current Medications Medications (Trade) Dose Ordered Sig/Anisha Route PRN Reason Start Time Stop Time Status Last Admin Dose Admin Acetaminophen (Tylenol) 650 mg Q4H PRN ORAL fever 02/27/17 16:00 03/29/17 15:59 Acetaminophen/ Hydrocodone Bitart ([place] 10/325) 1 ea Q6H PRN ORAL moderate breakthrough pain 02/28/17 08:15 03/07/17 08:14 03/02/17 09:03 Albuterol/ Ipratropium (Albuterol/ Ipratropium) 3 ml EVERY 4 HOURS PRN HHN Shortness of Breath 02/27/17 16:00 03/04/17 15:59 Atenolol (Tenormin) 25 mg DAILY ORAL 03/01/17 09:00 03/31/17 08:59 03/02/17 09:02 Cefepime HCl 2 gm/ Dextrose 110 ml @ 220 mls/hr DAILY IV 03/02/17 09:00 03/06/17 20:59 03/02/17 08:20 Cyclobenzaprine HCl (Flexeril) 10 mg THREE TIMES A DAY ORAL 02/27/17 18:00 03/29/17 17:59 03/02/17 09:03 Dextrose (Dextrose 50%) STAT PRN IV Hypoglycemia 02/27/17 16:00 03/29/17 15:59 Gabapentin (Neurontin) 100 mg THREE TIMES A DAY ORAL 02/28/17 09:00 03/30/17 08:59 03/02/17 09:03 Heparin Sodium (Porcine) (Heparin 5000 units/ml) 5,000 units EVERY 12 HOURS SUBQ 02/27/17 21:00 03/29/17 20:59 03/02/17 09:09 Hydrochlorothiazide (Hydrodiuril) 25 mg DAILY ORAL 03/01/17 09:00 03/31/17 08:59 Lorazepam (Ativan) 1 mg Q4HR PRN ORAL For Anxiety 02/27/17 16:00 03/06/17 15:59 03/01/17 23:28 Morphine Sulfate (Morphine Sulfate) 4 mg Q4H PRN IVP Severe Pain (Pain Scale 7-10) 02/27/17 20:45 03/06/17 20:44 03/01/17 00:28 Nitroglycerin (Ntg) 0.4 mg Q5MINS PRN SL Prn Chest Pain 02/27/17 16:00 03/29/17 15:59 Ondansetron HCl (Zofran) 4 mg Q6H PRN IVP Nausea & Vomiting 02/27/17 16:00 03/29/17 15:59 Polyethylene Glycol (Miralax) 17 gm DAILYPRN PRN ORAL Constipation 02/27/17 16:00 03/29/17 15:59 02/28/17 22:40 Temazepam (Restoril) 15 mg HSPRN PRN ORAL Insomnia 02/27/17 16:00 03/06/17 15:59 03/01/17 23:28 Vancomycin HCl (Vanco rx to dose) 1 ea DAILY PRN MISC PER RX PROTOCOL 02/28/17 16:00 03/30/17 15:59 Vancomycin HCl 1 gm/Dextrose 275 ml @ 183.708 mls/hr Q12HR@0900,2100 IVPB 03/02/17 21:00 03/07/17 20:59 Vancomycin HCl/ Dextrose 250 ml @ 125 mls/hr DAILY IVPB 02/27/17 18:00 03/02/17 12:00 03/02/17 09:03 REAGAN TERAN Mar 02, 2017 10:40
--- NOTE | 2017-03-02 10:41 | Pulmonology Progress Note ---
Assessment/Plan Problems: (1) Wound infection after surgery (2) Intractable neuropathic pain of foot (3) History of asthma (4) Swelling of knee joint, right Assessment/Plan improving getting better, wound care IV abx all labs and notes reviewed. dc planning in process. Subjective ROS Limited/Unobtainable: No Constitutional: Reports: no symptoms HEENT: Repors: no symptoms Respiratory: Reports: no symptoms Cardiovascular: Reports: no symptoms Allergies: Coded Allergies: No Known Allergies (Unverified , 10/03/16) Objective Last 24 Hour Vital Signs Date Time Temp Pulse Resp B/P (MAP) Pulse Ox O2 Delivery O2 Flow Rate FiO2 03/02/17 10:02 98.0 03/02/17 10:02 98.0 03/02/17 09:02 88 141/64 03/02/17 08:00 98.0 88 18 141/64 97 Room Air 03/02/17 07:33 79 18 Room Air 03/02/17 04:44 98.9 70 20 138/77 98 Room Air 03/02/17 00:35 98.8 72 20 140/75 98 Room Air 03/01/17 22:07 72 18 Room Air 03/01/17 20:49 99.0 78 18 141/83 99 Room Air 03/01/17 16:00 97.7 86 20 141/78 98 Room Air 03/01/17 12:00 98.5 73 20 139/73 99 Room Air Intake and Output 03/02/17 03/03/17 19:00 07:00 Intake Total 240 ml Balance 240 ml Intake Oral 240 ml General Appearance: WD/WN HEENT: normocephalic, atraumatic Respiratory/Chest: chest wall non-tender, lungs clear, normal breath sounds Abdomen: normal bowel sounds, soft, non tender Genitourinary: normal external genitalia Extremities: no clubbing Neurologic/Psychiatric: tacking stitch remover II-XII grossly normal, no motor/sensory deficits Microbiology Date/Time Source Procedure Growth Status 02/27/17 15:55 Blood Blood Culture - Preliminary NO GROWTH AFTER 48 HOURS Resulted 02/27/17 15:45 Blood Blood Culture - Preliminary NO GROWTH AFTER 48 HOURS Resulted 02/27/17 16:10 Nasal Nares MRSA Culture - Final NO METHICILLIN RESISTANT STAPH AUREUS... Complete 03/01/17 00:10 Knee Right Gram Stain - Final Resulted 03/01/17 00:10 Knee Right Wound Culture - Preliminary NO GROWTH Resulted 02/27/17 16:10 Rectum VRE Culture - Final NO VANCOMYCIN RESISTANT ENTEROCOCCUS ... Complete Laboratory Tests 03/02/17 06:54: White Blood Count 7.6, Red Blood Count 3.27L, Hemoglobin 10.3L, Hematocrit 31.5L , Mean Corpuscular Volume 96, Mean Corpuscular Hemoglobin 31.4H, Mean Corpuscular Hemoglobin Concent 32.6, Red Cell Distribution Width 13.1, Platelet Count 230, Mean Platelet Volume 6.7, Neutrophils (%) (Auto) 59.4, Lymphocytes (% ) (Auto) 27.2, Monocytes (%) (Auto) 5.8, Eosinophils (%) (Auto) 6.4H, Basophils (%) (Auto) 1.2, Erythrocyte Sedimentation Rate 100H, Reticulocyte Count [Pending ], Prothrombin Time 10.7, Prothromb Time International Ratio 1.0, Activated Partial Thromboplast Time 27, Sodium Level 140, Potassium Level 3.9, Chloride Level 106, Carbon Dioxide Level 28, Anion Gap 7, Blood Urea Nitrogen 12, Creatinine 0.7, Estimat Glomerular Filtration Rate , Glucose Level 95, Calcium Level 9.2, Iron Level 54, Total Iron Binding Capacity 264, Percent Iron Saturation 21, Unsaturated Iron Binding 210, Lactate Dehydrogenase 198, Vitamin B12 Level 641, Folate 13.0 03/02/17 08:02: Vancomycin Level Trough 5.3 Current Medications Medications (Trade) Dose Ordered Sig/Anisha Route PRN Reason Start Time Stop Time Status Last Admin Dose Admin Acetaminophen (Tylenol) 650 mg Q4H PRN ORAL fever 02/27/17 16:00 03/29/17 15:59 Acetaminophen/ Hydrocodone Bitart ([place] 10/325) 1 ea Q6H PRN ORAL moderate breakthrough pain 02/28/17 08:15 03/07/17 08:14 03/02/17 09:03 Albuterol/ Ipratropium (Albuterol/ Ipratropium) 3 ml EVERY 4 HOURS PRN HHN Shortness of Breath 02/27/17 16:00 03/04/17 15:59 Atenolol (Tenormin) 25 mg DAILY ORAL 03/01/17 09:00 03/31/17 08:59 03/02/17 09:02 Cefepime HCl 2 gm/ Dextrose 110 ml @ 220 mls/hr DAILY IV 03/02/17 09:00 03/06/17 20:59 03/02/17 08:20 Cyclobenzaprine HCl (Flexeril) 10 mg THREE TIMES A DAY ORAL 02/27/17 18:00 03/29/17 17:59 03/02/17 09:03 Dextrose (Dextrose 50%) STAT PRN IV Hypoglycemia 02/27/17 16:00 03/29/17 15:59 Gabapentin (Neurontin) 100 mg THREE TIMES A DAY ORAL 02/28/17 09:00 03/30/17 08:59 03/02/17 09:03 Heparin Sodium (Porcine) (Heparin 5000 units/ml) 5,000 units EVERY 12 HOURS SUBQ 02/27/17 21:00 03/29/17 20:59 03/02/17 09:09 Hydrochlorothiazide (Hydrodiuril) 25 mg DAILY ORAL 03/01/17 09:00 03/31/17 08:59 Lorazepam (Ativan) 1 mg Q4HR PRN ORAL For Anxiety 02/27/17 16:00 03/06/17 15:59 03/01/17 23:28 Morphine Sulfate (Morphine Sulfate) 4 mg Q4H PRN IVP Severe Pain (Pain Scale 7-10) 02/27/17 20:45 03/06/17 20:44 03/01/17 00:28 Nitroglycerin (Ntg) 0.4 mg Q5MINS PRN SL Prn Chest Pain 02/27/17 16:00 03/29/17 15:59 Ondansetron HCl (Zofran) 4 mg Q6H PRN IVP Nausea & Vomiting 02/27/17 16:00 03/29/17 15:59 Polyethylene Glycol (Miralax) 17 gm DAILYPRN PRN ORAL Constipation 02/27/17 16:00 03/29/17 15:59 02/28/17 22:40 Temazepam (Restoril) 15 mg HSPRN PRN ORAL Insomnia 02/27/17 16:00 03/06/17 15:59 03/01/17 23:28 Vancomycin HCl (Vanco rx to dose) 1 ea DAILY PRN MISC PER RX PROTOCOL 02/28/17 16:00 03/30/17 15:59 Vancomycin HCl 1 gm/Dextrose 275 ml @ 183.708 mls/hr Q12HR@0900,2100 IVPB 03/02/17 21:00 03/07/17 20:59 Vancomycin HCl/ Dextrose 250 ml @ 125 mls/hr DAILY IVPB 02/27/17 18:00 03/02/17 12:00 03/02/17 09:03 [id number] RABAGO Mar 02, 2017 10:41
[2017-03-02 11:33] LABS: RETICULOCYTE COUNT 4.2 % (0.0-2.0)
[2017-03-02 12:00] VITALS: BP 145/79
[2017-03-02 16:00] VITALS: BP 144/72
[2017-03-02 19:50] VITALS: BP 119/70
[2017-03-02] MEDS: Vancomycin 1gm/D5W 275ml IVPB SCH ×2 (20:32)
[2017-03-02] MEDS: LORazepam 1mg tab ORAL PRN (23:09)
[2017-03-03] VITALS: BP 139/80
[2017-03-03] MEDS: Norco 10mg/325mg tab ORAL PRN ×2 (00:17→06:13)
[2017-03-03 08:00] VITALS: BP 121/74
--- NOTE | 2017-03-03 08:03 | General Progress Note ---
Assessment/Plan Assessment/Plan (1) B/l Knee Pain (2) B/l Knee OA (3) S/p Right knee TKR (4) Neuropathic pain Patient will be continued on morphine, [place] and Neurontin. The patient was discussed with Dr. Ruiz and Dr. Ruiz concurred. Subjective Date patient seen: Mar 03, 2017 Time patient seen: 07:15 - am Allergies: Coded Allergies: No Known Allergies (Unverified , 10/03/16) Subjective REVIEW OF SYSTEMS: Denies rash, fever, chills, sweating, dizziness, drowsiness, blurred vision, sore throat, or change in her weight. No shortness of breath or chest pain. No nausea, vomiting, or blood in stool or urine. No bowel or bladder incontinence. She is complaining of bilateral knee pain. SUBJECTIVE: Pt is in bed no signs of pain or distress. The pain has been tolerated on the norco and Morphine. Objective Last 24 Hour Vital Signs Date Time Temp Pulse Resp B/P (MAP) Pulse Ox O2 Delivery O2 Flow Rate FiO2 03/03/17 07:58 89 18 Room Air 03/03/17 00:00 98.0 73 16 139/80 98 Room Air 03/02/17 19:50 98.1 75 17 119/70 99 Room Air 03/02/17 19:00 81 18 Room Air 03/02/17 18:36 98.0 03/02/17 18:36 98.0 03/02/17 16:00 98.3 81 18 144/72 99 Room Air 03/02/17 12:00 98.3 85 20 145/79 99 Room Air 03/02/17 09:02 88 141/64 Laboratory Tests 03/02/17 09:30: Stool Occult Blood [Pending] 03/03/17 06:50: White Blood Count [Pending], Red Blood Count [Pending], Hemoglobin [Pending], Hematocrit [Pending], Mean Corpuscular Volume [Pending], Mean Corpuscular Hemoglobin [Pending], Mean Corpuscular Hemoglobin Concent [Pending], Red Cell Distribution Width [Pending], Platelet Count [Pending], Mean Platelet Volume [ Pending], Neutrophils (%) (Auto) [Pending], Lymphocytes (%) (Auto) [Pending], Monocytes (%) (Auto) [Pending], Eosinophils (%) (Auto) [Pending], Basophils (%) (Auto) [Pending], Sodium Level [Pending], Potassium Level [Pending], Chloride Level [Pending], Carbon Dioxide Level [Pending], Blood Urea Nitrogen [Pending], Creatinine [Pending], Estimat Glomerular Filtration Rate [Pending], Glucose Level [Pending], Calcium Level [Pending] Height (Feet): 5 Height (Inches): 6.00 Weight (Pounds): 220 Objective GENERAL: Alert, awake, and oriented x3. HEENT: PERRLA. NECK: Range of motion is full in all directions. No tenderness. There is no adenopathy. LUNGS: Clear. HEART: S1 and S2 regular. ABDOMEN: Obese. EXTREMITIES: No cyanosis. No clubbing. Swelling noted and bandages applied to right knee with tenderness to palpation. NEUROLOGICAL EXAM: No focal deficit. MATEO ENGLE Mar 03, 2017 08:03
[2017-03-03 08:06] LABS: BASOPHILS % (AUTO) 0.9 % (0.0-2.0); EOSINOPHILS % (AUTO) 6.2 % (0.0-3.0); LYMPHOCYTES % (AUTO) 27.3 % (20.0-45.0); MEAN CORPUSCULAR HEMOGLOBIN 31.1 PG (27.0-31.0); MEAN CORPUSCULAR HGB CONC 32.3 G/DL (32.0-36.0); MEAN CORPUSCULAR VOLUME 96 FL (80-99); MEAN PLATELET VOLUME 6.4 FL (6.5-10.1); MONOCYTES % (AUTO) 5.8 % (1.0-10.0); NEUTROPHILS % (AUTO) 59.9 % (45.0-75.0); PLATELET COUNT 219 K/UL (150-450); RED BLOOD COUNT 3.27 M/UL (4.20-5.40); RED CELL DISTRIBUTION WIDTH 12.9 % (11.6-14.8); WHITE BLOOD COUNT 8.4 K/UL (4.8-10.8)
[2017-03-03 08:26] LABS: ANION GAP 8 mmol/L (5-15); CALCIUM 8.9 MG/DL (8.5-10.1); CARBON DIOXIDE 26 MMOL/L (21-32); CHLORIDE 106 MMOL/L (98-107); CREATININE 0.7 MG/DL (0.55-1.30); POTASSIUM 3.9 MMOL/L (3.5-5.1); SODIUM 140 MMOL/L (136-145)
[2017-03-03] MEDS: Cefepime HCl 2 GM in D5W 110 ML IV SCH (08:27)
[2017-03-03] MEDS: Cyclobenzaprine 10mg Tab ORAL SCH ×3 (08:27→18:04)
[2017-03-03] MEDS: Heparin 5000 units/ml inj SUBQ SCH (08:30)
[2017-03-03] MEDS: Atenolol 25mg tab ORAL SCH (08:33)
[2017-03-03] MEDS: Vancomycin 1gm/D5W 275ml IVPB SCH ×2 (09:25)
--- NOTE | 2017-03-03 11:05 | Infectious Diseases Prog Note ---
Assessment/Plan Assessment/Plan A 1. right knee cellulitis 2. s/p right knee arthroplasty 3. osteoarthritis P 1. continue vancomycin iv, cefepime 2. discharge with PO Keflex & Doxycycline X 7 days Subjective ROS Limited/Unobtainable: No Constitutional: Reports: no symptoms Respiratory: Reports: no symptoms Breasts: Reports: no symptoms Cardiovascular: Reports: no symptoms Musculoskeletal: Reports: pain, other - in knee controlled Allergies: Coded Allergies: No Known Allergies (Unverified , 10/03/16) Objective Vital Signs Last 24 Hour Vital Signs Date Time Temp Pulse Resp B/P (MAP) Pulse Ox O2 Delivery O2 Flow Rate FiO2 03/03/17 09:26 98.0 03/03/17 08:33 81 121/74 03/03/17 08:00 98.7 81 20 121/74 98 Room Air 03/03/17 07:58 89 18 Room Air 03/03/17 00:00 98.0 73 16 139/80 98 Room Air 03/02/17 19:50 98.1 75 17 119/70 99 Room Air 03/02/17 19:00 81 18 Room Air 03/02/17 18:36 98.0 03/02/17 16:00 98.3 81 18 144/72 99 Room Air 03/02/17 12:00 98.3 85 20 145/79 99 Room Air Height (Feet): 5 Height (Inches): 6.00 Weight (Pounds): 220 General Appearance: no acute distress HEENT: mucous membranes moist Respiratory/Chest: lungs clear Cardiovascular: normal rate Abdomen: soft, non tender Extremities: other - edema of right leg Skin: other - superficial blisters on surgical site Neurologic/Psychiatric: alert, oriented x 3, responsive Microbiology Date/Time Source Procedure Growth Status 03/01/17 00:10 Knee Right Gram Stain - Final Resulted 03/01/17 00:10 Knee Right Wound Culture - Preliminary NO GROWTH Resulted Laboratory Tests Test 03/03/17 06:50 White Blood Count 8.4 K/UL (4.8-10.8) Red Blood Count 3.27 M/UL (4.20-5.40) L Hemoglobin 10.2 G/DL (12.0-16.0) L Hematocrit 31.5 % (37.0-47.0) L Mean Corpuscular Volume 96 FL (80-99) Mean Corpuscular Hemoglobin 31.1 PG (27.0-31.0) H Mean Corpuscular Hemoglobin Concent 32.3 G/DL (32.0-36.0) Red Cell Distribution Width 12.9 % (11.6-14.8) Platelet Count 219 K/UL (150-450) Mean Platelet Volume 6.4 FL (6.5-10.1) L Neutrophils (%) (Auto) 59.9 % (45.0-75.0) Lymphocytes (%) (Auto) 27.3 % (20.0-45.0) Monocytes (%) (Auto) 5.8 % (1.0-10.0) Eosinophils (%) (Auto) 6.2 % (0.0-3.0) H Basophils (%) (Auto) 0.9 % (0.0-2.0) Sodium Level 140 MMOL/L (136-145) Potassium Level 3.9 MMOL/L (3.5-5.1) Chloride Level 106 MMOL/L (98-107) Carbon Dioxide Level 26 MMOL/L (21-32) Anion Gap 8 mmol/L (5-15) Blood Urea Nitrogen 12 mg/dL (7-18) Creatinine 0.7 MG/DL (0.55-1.30) Estimat Glomerular Filtration Rate mL/min (>60) Glucose Level 96 MG/DL (74-106) Calcium Level 8.9 MG/DL (8.5-10.1) Current Medications Medications (Trade) Dose Ordered Sig/Anisha Route PRN Reason Start Time Stop Time Status Last Admin Dose Admin Acetaminophen (Tylenol) 650 mg Q4H PRN ORAL fever 02/27/17 16:00 03/29/17 15:59 Acetaminophen/ Hydrocodone Bitart ([place] 10/325) 1 ea Q6H PRN ORAL moderate breakthrough pain 02/28/17 08:15 03/07/17 08:14 03/03/17 06:13 Albuterol/ Ipratropium (Albuterol/ Ipratropium) 3 ml EVERY 4 HOURS PRN HHN Shortness of Breath 02/27/17 16:00 03/04/17 15:59 Atenolol (Tenormin) 25 mg DAILY ORAL 03/01/17 09:00 03/31/17 08:59 03/03/17 08:33 Cefepime HCl 2 gm/ Dextrose 110 ml @ 220 mls/hr DAILY IV 03/02/17 09:00 03/06/17 20:59 03/03/17 08:27 Cyclobenzaprine HCl (Flexeril) 10 mg THREE TIMES A DAY ORAL 02/27/17 18:00 03/29/17 17:59 03/03/17 08:27 Dextrose (Dextrose 50%) STAT PRN IV Hypoglycemia 02/27/17 16:00 03/29/17 15:59 Diphenhydramine HCl (Benadryl) 25 mg Q4H PRN ORAL Itching 03/03/17 08:30 04/02/17 08:29 03/03/17 09:25 Gabapentin (Neurontin) 100 mg THREE TIMES A DAY ORAL 02/28/17 09:00 03/30/17 08:59 03/03/17 08:26 Heparin Sodium (Porcine) (Heparin 5000 units/ml) 5,000 units EVERY 12 HOURS SUBQ 02/27/17 21:00 03/29/17 20:59 03/03/17 08:30 Hydrochlorothiazide (Hydrodiuril) 25 mg DAILY ORAL 03/01/17 09:00 03/31/17 08:59 Lorazepam (Ativan) 1 mg Q4HR PRN ORAL For Anxiety 02/27/17 16:00 03/06/17 15:59 03/02/17 23:09 Morphine Sulfate (Morphine Sulfate) 4 mg Q4H PRN IVP Severe Pain (Pain Scale 7-10) 02/27/17 20:45 03/06/17 20:44 03/01/17 00:28 Nitroglycerin (Ntg) 0.4 mg Q5MINS PRN SL Prn Chest Pain 02/27/17 16:00 03/29/17 15:59 Ondansetron HCl (Zofran) 4 mg Q6H PRN IVP Nausea & Vomiting 02/27/17 16:00 03/29/17 15:59 Polyethylene Glycol (Miralax) 17 gm DAILYPRN PRN ORAL Constipation 02/27/17 16:00 03/29/17 15:59 02/28/17 22:40 Temazepam (Restoril) 15 mg HSPRN PRN ORAL Insomnia 02/27/17 16:00 03/06/17 15:59 03/02/17 23:09 Vancomycin HCl (Vanco rx to dose) 1 ea DAILY PRN MISC PER RX PROTOCOL 02/28/17 16:00 03/30/17 15:59 Vancomycin HCl 1 gm/Dextrose 275 ml @ 183.708 mls/hr Q12HR@0900,2100 IVPB 03/02/17 21:00 03/07/17 20:59 03/03/17 09:25 REAGAN TERAN Mar 03, 2017 11:05
[2017-03-03 12:00] VITALS: BP 135/75
--- NOTE | 2017-03-03 12:40 | Pulmonology Progress Note ---
Assessment/Plan Problems: (1) Wound infection after surgery (2) Intractable neuropathic pain of foot (3) History of asthma (4) Swelling of knee joint, right Assessment/Plan improving getting better, wound care all labs and notes reviewed. dc planning in process. Subjective ROS Limited/Unobtainable: No Constitutional: Reports: no symptoms HEENT: Repors: no symptoms Allergies: Coded Allergies: No Known Allergies (Unverified , 10/03/16) Objective Last 24 Hour Vital Signs Date Time Temp Pulse Resp B/P (MAP) Pulse Ox O2 Delivery O2 Flow Rate FiO2 03/03/17 09:26 98.0 03/03/17 08:33 81 121/74 03/03/17 08:00 98.7 81 20 121/74 98 Room Air 03/03/17 07:58 89 18 Room Air 03/03/17 00:00 98.0 73 16 139/80 98 Room Air 03/02/17 19:50 98.1 75 17 119/70 99 Room Air 03/02/17 19:00 81 18 Room Air 03/02/17 18:36 98.0 03/02/17 16:00 98.3 81 18 144/72 99 Room Air Intake and Output 03/03/17 03/04/17 18:59 06:59 Intake Total 240 ml Balance 240 ml Intake Oral 240 ml General Appearance: WD/WN HEENT: normocephalic, atraumatic Respiratory/Chest: chest wall non-tender, lungs clear Breasts: no masses Cardiovascular: normal peripheral pulses Abdomen: normal bowel sounds, soft, non tender Genitourinary: normal external genitalia Extremities: no clubbing Skin: no rash Neurologic/Psychiatric: kinesiology internship II-XII grossly normal Lymphatic: no neck adenopathy Microbiology Date/Time Source Procedure Growth Status 03/01/17 00:10 Knee Right Gram Stain - Final Resulted 03/01/17 00:10 Knee Right Wound Culture - Preliminary Resulted Laboratory Tests 03/03/17 06:50: White Blood Count 8.4, Red Blood Count 3.27L, Hemoglobin 10.2L, Hematocrit 31.5L , Mean Corpuscular Volume 96, Mean Corpuscular Hemoglobin 31.1H, Mean Corpuscular Hemoglobin Concent 32.3, Red Cell Distribution Width 12.9, Platelet Count 219, Mean Platelet Volume 6.4L, Neutrophils (%) (Auto) 59.9, Lymphocytes ( %) (Auto) 27.3, Monocytes (%) (Auto) 5.8, Eosinophils (%) (Auto) 6.2H, Basophils (%) (Auto) 0.9, Sodium Level 140, Potassium Level 3.9, Chloride Level 106, Carbon Dioxide Level 26, Anion Gap 8, Blood Urea Nitrogen 12, Creatinine 0.7, Estimat Glomerular Filtration Rate , Glucose Level 96, Calcium Level 8.9 Current Medications Medications (Trade) Dose Ordered Sig/Anisha Route PRN Reason Start Time Stop Time Status Last Admin Dose Admin Acetaminophen (Tylenol) 650 mg Q4H PRN ORAL fever 02/27/17 16:00 03/29/17 15:59 Acetaminophen/ Hydrocodone Bitart ([place] 10/325) 1 ea Q6H PRN ORAL moderate breakthrough pain 02/28/17 08:15 03/07/17 08:14 03/03/17 06:13 Albuterol/ Ipratropium (Albuterol/ Ipratropium) 3 ml EVERY 4 HOURS PRN HHN Shortness of Breath 02/27/17 16:00 03/04/17 15:59 Atenolol (Tenormin) 25 mg DAILY ORAL 03/01/17 09:00 03/31/17 08:59 03/03/17 08:33 Cefepime HCl 2 gm/ Dextrose 110 ml @ 220 mls/hr DAILY IV 03/02/17 09:00 03/06/17 20:59 03/03/17 08:27 Cyclobenzaprine HCl (Flexeril) 10 mg THREE TIMES A DAY ORAL 02/27/17 18:00 03/29/17 17:59 03/03/17 08:27 Dextrose (Dextrose 50%) STAT PRN IV Hypoglycemia 02/27/17 16:00 03/29/17 15:59 Diphenhydramine HCl (Benadryl) 25 mg Q4H PRN ORAL Itching 03/03/17 08:30 04/02/17 08:29 03/03/17 09:25 Gabapentin (Neurontin) 100 mg THREE TIMES A DAY ORAL 02/28/17 09:00 03/30/17 08:59 03/03/17 08:26 Heparin Sodium (Porcine) (Heparin 5000 units/ml) 5,000 units EVERY 12 HOURS SUBQ 02/27/17 21:00 03/29/17 20:59 03/03/17 08:30 Hydrochlorothiazide (Hydrodiuril) 25 mg DAILY ORAL 03/01/17 09:00 03/31/17 08:59 Lorazepam (Ativan) 1 mg Q4HR PRN ORAL For Anxiety 02/27/17 16:00 03/06/17 15:59 03/02/17 23:09 Morphine Sulfate (Morphine Sulfate) 4 mg Q4H PRN IVP Severe Pain (Pain Scale 7-10) 02/27/17 20:45 03/06/17 20:44 03/01/17 00:28 Nitroglycerin (Ntg) 0.4 mg Q5MINS PRN SL Prn Chest Pain 02/27/17 16:00 03/29/17 15:59 Ondansetron HCl (Zofran) 4 mg Q6H PRN IVP Nausea & Vomiting 02/27/17 16:00 03/29/17 15:59 Polyethylene Glycol (Miralax) 17 gm DAILYPRN PRN ORAL Constipation 02/27/17 16:00 03/29/17 15:59 02/28/17 22:40 Temazepam (Restoril) 15 mg HSPRN PRN ORAL Insomnia 02/27/17 16:00 03/06/17 15:59 03/02/17 23:09 Vancomycin HCl (Vanco rx to dose) 1 ea DAILY PRN MISC PER RX PROTOCOL 02/28/17 16:00 03/30/17 15:59 Vancomycin HCl 1 gm/Dextrose 275 ml @ 183.708 mls/hr Q12HR@0900,2100 IVPB 03/02/17 21:00 03/07/17 20:59 03/03/17 09:25 KRZYSZTOF RABAGO Mar 03, 2017 12:40
--- NOTE | 2017-03-03 13:05 | General Progress Note ---
Assessment/Plan Problem List: (1) Swelling of knee joint, right ICD Codes: M25.461 - Effusion, right knee SNOMED: 977090357 (2) Wound infection after surgery ICD Codes: T81.4XXA - Infection following a procedure, initial encounter SNOMED: 22812633, [id number] Qualifiers: Qualified Codes: T81.4XXA - Infection following a procedure, initial encounter Status: stable, progressing, tolerating diet Assessment/Plan ot pt diet wound care abx pain control dc to snf Subjective Constitutional: Reports: weakness Allergies: Coded Allergies: No Known Allergies (Unverified , 10/03/16) All Systems: reviewed and negative except above Subjective sleepy in bed Objective Last 24 Hour Vital Signs Date Time Temp Pulse Resp B/P (MAP) Pulse Ox O2 Delivery O2 Flow Rate FiO2 03/03/17 09:26 98.0 03/03/17 08:33 81 121/74 03/03/17 08:00 98.7 81 20 121/74 98 Room Air 03/03/17 07:58 89 18 Room Air 03/03/17 00:00 98.0 73 16 139/80 98 Room Air 03/02/17 19:50 98.1 75 17 119/70 99 Room Air 03/02/17 19:00 81 18 Room Air 03/02/17 18:36 98.0 03/02/17 16:00 98.3 81 18 144/72 99 Room Air Intake and Output 03/03/17 03/04/17 19:00 07:00 Intake Total 240 ml Balance 240 ml Intake Oral 240 ml Laboratory Tests 03/03/17 06:50: White Blood Count 8.4, Red Blood Count 3.27L, Hemoglobin 10.2L, Hematocrit 31.5L , Mean Corpuscular Volume 96, Mean Corpuscular Hemoglobin 31.1H, Mean Corpuscular Hemoglobin Concent 32.3, Red Cell Distribution Width 12.9, Platelet Count 219, Mean Platelet Volume 6.4L, Neutrophils (%) (Auto) 59.9, Lymphocytes ( %) (Auto) 27.3, Monocytes (%) (Auto) 5.8, Eosinophils (%) (Auto) 6.2H, Basophils (%) (Auto) 0.9, Sodium Level 140, Potassium Level 3.9, Chloride Level 106, Carbon Dioxide Level 26, Anion Gap 8, Blood Urea Nitrogen 12, Creatinine 0.7, Estimat Glomerular Filtration Rate , Glucose Level 96, Calcium Level 8.9 Height (Feet): 5 Height (Inches): 6.00 Weight (Pounds): 220 General Appearance: alert EENT: normal ENT inspection Neck: normal alignment Cardiovascular: normal peripheral pulses, normal rate, regular rhythm Respiratory/Chest: chest wall non-tender, lungs clear, normal breath sounds Abdomen: normal bowel sounds, non tender, soft Extremities: normal inspection Edema: no edema noted Arm (L), no edema noted Arm (R), no edema noted Leg (L), no edema noted Leg (R), no edema noted Pedal (L), no edema noted Pedal (R), no edema noted Generalized Neurologic: responsive, motor weakness Skin: normal pigmentation, warm/dry CHANCE DURHAM Mar 03, 2017 13:05
[2017-03-03] MEDS ORDERED: KEFLEX500 MG ORAL (14:56)
[2017-03-03] MEDS ORDERED: DOXYCYCLINE MO100 MG ORAL (14:57)
[2017-03-03] MEDS ORDERED: CEPHALEXIN500 MG ORAL (14:58)
[2017-03-03 16:00] VITALS: BP 124/72
[2017-03-04] MEDS ORDERED: Cefepime HCl 2 GM in D5W 55 ML IV SCH (09:00)
--- NOTE | 2017-03-04 10:58 | Discharge Summary ---
Discharge Summary Hospital Course Date of Admission Feb 27, 2017 at 15:39 Date of Discharge Mar 03, 2017 at 18:32 Admitting Diagnosis POST OP infection HPI Flaca Sarabia is a 71 year old female who was admitted on Feb 27, 2017 at 15:39 for Post Operative Infection Hospital Course dc summary #[id number] Discharge Medications Continued Medications: Ascorbic Acid* (Vitamin C*) 500 Mg Tablet 500 MG ORAL DAILY, #30 TAB 0 Refills Aspirin* (Aspir 81*) 81 Mg Tablet.dr 81 MG ORAL DAILY, TAB Atenolol* (Tenormin*) 25 Mg Tablet 25 MG ORAL DAILY, TAB Calcium Carbonate/Vitamin D3 (Calcium 600 + Vit D 200 Tablet) 1 Each Tablet 1 EACH PO DAILY, TAB Cephalexin* (Keflex*) 500 Mg Capsule 500 MG ORAL EVERY 6 HOURS, #28 CAP 0 Refills Hydrocodone Bit/Acetaminophen 10-325* (Hydrocodon-Acetaminophn 10-325*) 1 Each Tablet 1 TAB ORAL Q6H, #10 TAB Vitamin D (Vitamin D3) 400 Unit Tablet 3000 UNITS ORAL DAILY, TAB Discontinued Medications: Acetaminophen (Tylenol) 325 Mg Tablet 650 MG ORAL Q4HR PRN for Mild Pain/Temp > 100.5, #30 TAB 0 Refills Acetaminophen* (Tylenol Extra Strength*) 500 Mg Tablet 500 MG ORAL Q6H, #20 TAB 0 Refills Albuterol Sulfate* (Albuterol Sulfate Mdi*) 8.5 Gm Hfa.aer.ad 2 PUFF INH Q4H PRN for cough/wheezing, #1 EA 0 Refills Atorvastatin Calcium* (Atorvastatin Calcium*) 20 Mg Tablet 20 MG ORAL BEDTIME, TAB Calcium Carbonate (Calcium) 500 Mg Tab.chew 500 MG PO, TAB Cephalexin* (Cephalexin*) 500 Mg Tablet 500 MG ORAL EVERY 8 HOURS for 6 Days, CAP Cyclobenzaprine Hcl* (Flexeril*) 10 Mg Tablet 10 MG ORAL THREE TIMES A DAY for 7 Days, #21 TAB Diphenhydramine HCl (Benadryl) 25 Mg Capsule 25 MG PO EVERY 6 HOURS for Itching, CAP Docusate Sodium* (Docusate Sodium*) 100 Mg Capsule 100 MG ORAL Q12HR, CAP Famotidine (Famotidine) 20 Mg Tablet 20 MG ORAL DAILY, #30 TAB 0 Refills Fluticasone Propionate (Flovent Hfa) 10.6 Gm Aer.w.adap 2 PUFFS INH EVERY 4 HOURS, #1 EA 0 Refills Furosemide (Furosemide) 40 Mg/5 Ml Solution 20 MG ORAL DAILY, ML Glucosa Yousif 2KCL/Chondroitin Yousif (Glucosamine & Chondroitin Cap) 1 Each Capsule 2 EACH PO TID, CAP Heparin Sod (Porcine) (Heparin Sodium*) 5 000/1 Ml Vial 5000 UNITS SUBQ EVERY 12 HOURS, VIAL Hydrochlorothiazide* (Hydrochlorothiazide*) 25 Mg Tablet 25 MG ORAL DAILY, TAB Hydrocodone Bit/Acetaminophen 5-325* ([place] 5-325*) 1 Each Tablet 1 TAB ORAL Q6H PRN for For Pain, TAB 0 Refills Lactulose (Lactulose*) 20 Gm/30 Ml Solution 30 ML ORAL DAILY PRN for Constipation, ML 0 Refills Lorazepam* (Ativan*) 1 Mg Tablet 1 MG ORAL Q4HR PRN for For Anxiety, TAB Meclizine Hcl (Meclizine Hcl) 25 Mg Tab.chew 25 MG ORAL THREE TIMES A DAY PRN for for dizziness, TAB Methocarbamol* (Robaxin-750*) 750 Mg Tablet 750 MG PO TID for 7 Days, #30 TAB 0 Refills Nitrofurantoin Monohyd/M-Cryst* (Macrobid 100 Mg*) 100 Mg Capsule 100 MG ORAL EVERY 12 HOURS for 7 Days, #14 CAP Ondansetron* (Zofran*) 4 Mg Tablet 4 MG ORAL Q6H PRN for Nausea & Vomiting, TAB Ondansetron* (Zofran*) 4 Mg/2 Ml Vial 4 MG IV Q6H PRN for Nausea & Vomiting, VIAL Potassium Bicarbonate/Cit Ac (Potassium 25 Meq Tablet Eff) 25 Meq Tablet.eff 40 MEQ PO DAILY, TAB Potassium Chloride (K-Tab) 10 Meq Tablet.er 30 MEQ PO BID, TAB Prednisone* (Prednisone*) 20 Mg Tablet 40 MG ORAL DAILY, #8 TAB Ranitidine Hcl* (Zantac*) 150 Mg Tablet 300 MG ORAL QHS, #30 TAB 0 Refills Zolpidem Tartrate* (Zolpidem Tartrate*) 5 Mg Tablet 5 MG ORAL BEDTIME PRN for Insomnia, TAB 0 Refills Discharge Discharge Disposition Patient was discharged to [facility] (04) Discharge Diagnoses: Discharge Instructions Discharge Instructions Special Instructions I have been assigned to complete a D/C Summary on this account. I was not involved in the patient management Kelsey Kilpatrick NP (Vanchtein) Mar 04, 2017 10:58
--- NOTE | 2017-03-05 02:15 | Discharge Summary 2 SIG ---
DATE OF ADMISSION: 02/27/2017 DATE OF DISCHARGE: 03/03/2017 REASON FOR ADMISSION: 71-year-old female with recent right knee arthroplasty on 02/20/2017 at [facility], presented to emergency room complaining of right knee pain and swelling. She had been seen at [facility]. She developed blisters on the right knee surgical site. Blisters were debrided. The patient was started on oral antibiotics. However, the patient reported that the pain and swelling persisted. At that time, the patient also had an ultrasound of the leg, which revealed no evidence of DVT. The patient described pain as 10/10, sharp and nonradiating. She denied fever or chills. She was unable to bear weight on the knee. Workup in the emergency room revealed stable vital signs, no leukocytosis, ESR -100, CRP-5.2, lactic acid- 0.9. The patient was anemic with hemoglobin -9.5 and hematocrit -30.8. Venous duplex was repeated and revealed no evidence of DVT. The patient was admitted with cellulitis of the right knee, status post recent right knee arthroplasty, anemia, and osteoarthritis of knee. HOSPITAL STAY: The patient was admitted. The patient was started on empiric antibiotics. Infectious Disease consult was requested. At the same time, Orthopedic surgeon seen and evaluated the patient and concluded that the patient had superficial blisters and recommended to continue local wound care. He stated that the patient can be discharged home on oral antibiotics and follow up as outpatient in two weeks. Blood culture were negative. Wound culture was negative. Antibiotic regimen optimized and changed to oral to be continued for additional seven days after discharge as per Infectious Disease specialist recommendation. Pain specialist followed. Pain management was directed by pain specialist. Pain was controlled. Hemoglobin and hematocrit were closely monitored, remained at the baseline. Anemia workup revealed stable iron, B12, and folate levels. Stool OB was negative. The patient was working with physical and occupational therapists. DVT prophylaxis was provided. Pulse oximetry was stable on room air, no evidence of respiratory distress. Bowel regimen was instituted. The patient was stable for discharge back to longterm facility. Follow up with the ortho surgeon as outpatient. FINAL DIAGNOSES: 1. Cellulitis right knee 2. Status post recent right knee arthroplasty. 3. Superficial blister, right knee. 4. Anemia. 5. Osteoarthritis of both knees. 6. Obesity. 7. History of asthma. DISCHARGE MEDICATIONS: See medication reconciliation list. DISCHARGE INSTRUCTIONS: The patient was discharged to longterm facility. FOLLOWUP: Follow up with medical doctor at the facility. Follow up with the surgeon as outpatient. Brandon Henry D.O. I have been assigned to dictate discharge summary on this account and I was not involved in the patient's management. Kelsey Kilpatrick (Vanchtein) NMayuri DR: SEAN JOB#: [id number] CC: PEYTON
== END 2017-03-03 18:32 | DRG 863 ==
LOC: EDBD 14:46 → EMR 15:34 → 3E 15:39 → EDBEDREQ 15:59 → 3E 18:23
DX: T81.4XXA Infection following a procedure, initial encounter (principal); G62.9 Polyneuropathy, unspecified; L03.115 Cellulitis of right lower limb; D64.9 Anemia, unspecified; I10 Essential (primary) hypertension; Y83.8 Other surgical procedures as the cause of abnormal reaction of the patient, or of later complication, without mention of misadventure at the time of the procedure; M17.0 Bilateral primary osteoarthritis of knee; Z96.651 Presence of right artificial knee joint; M54.5 Low back pain; S80.221A Blister (nonthermal), right knee, initial encounter; J45.909 Unspecified asthma, uncomplicated; E66.9 Obesity, unspecified
CPT/HCPCS: 36415; 80048; 80053; 80202; 82248; 82270; 82607; 82746; 83540; 83550; 83605; 83615; 85025; 85044; 85060; 85610; 85651; 85730; 86140; 87040; 87070; 87081; 87205; 93970; 94664; 97803; 99285; J8499

== ENCOUNTER 2017-07-12 15:38 | Emergency (ER) | payer MEDICARE, MEDICAID ==
[~2017-07-12] VITALS: Ht 167.6 cm; Wt 102.1 kg
[~2017-07-12 15:38] MED LIST changes: +BENADRYL25 M3 PO; +CEPHALEXIN500 MG ORAL; +DOXYCYCLINE MO100 MG ORAL; +FUROSEMIDE40 MG/5 ML ORAL; +KEFLEX500 MG ORAL; +LACTULOSE20 GM/301 ORAL; +MECLIZINE HCL25 M1 ORAL; +NORCO 5-325 TA1 EACH ORAL
[2017-07-12] MEDS ORDERED: HYDROCHLOROTHIA25 MG ORAL (15:52)
[2017-07-12 16:00] VITALS: BP 142/59
[2017-07-12] MEDS ORDERED: Mylanta II UD 30ml ORAL ONE (16:15)
[2017-07-12] MEDS ORDERED: Lidocaine 2% Visc 15ml soln ORAL ONE (16:15)
[2017-07-12] MEDS ORDERED: Dicyclomine HCl 10mg/5ml oral soln ORAL ONE (16:15)
--- NOTE | 2017-07-12 16:17 | Emergency Room Report ---
History of Present Illness General Chief Complaint: Hypertension Source: Patient Present Illness HPI 71-year-old female, history of hypertension, presenting with bilateral lower extremity edema for 4 days. Denies any pain. No chest pain or shortness of breath. Also states that she has had burning epigastric pain mostly after she eats. States that this has been an ongoing problem for her and her PCP knows about it. Has had some nausea vomiting. About 2 episodes. Nonbloody. No black or bloody stools. Allergies: Coded Allergies: No Known Allergies (Unverified , 10/03/16) Patient History Past Medical History: see triage record Past Surgical History: none Pertinent Family History: none Reviewed Nursing Documentation: PMH: Agreed; PSxH: Agreed Nursing Documentation-PMH Past Medical History: No History, Except For Hx Cardiac Problems: No Hx Hypertension: Yes Hx Asthma: Yes Hx Cancer: No Hx Gastrointestinal Problems: No Hx Neurological Problems: No Review of Systems All Other Systems: negative except mentioned in HPI Physical Exam Vital Signs Date Time Temp Pulse Resp B/P (MAP) Pulse Ox O2 Delivery O2 Flow Rate FiO2 07/12/17 15:44 98.0 74 20 159/83 96 Room Air 98.1 Sp02 EP Interpretation: reviewed, normal General Appearance: normal inspection, well appearing, no apparent distress, alert, GCS 15, non-toxic Head: normocephalic, atraumatic Eyes: bilateral eye normal inspection, bilateral eye PERRL, bilateral eye EOMI ENT: normal ENT inspection, normal pharynx, normal voice, moist mucus membranes Neck: normal inspection, full range of motion, supple Respiratory: normal inspection, lungs clear, normal breath sounds, no respiratory distress, no retraction, no wheezing, speaking full sentences, chest symmetrical Cardiovascular #1: regular rate, rhythm, normal capillary refill, edema Cardiovascular #2: 2+ radial (R), 2+ radial (L) Gastrointestinal: normal inspection, non tender, soft, non-distended, no guarding Musculoskeletal: back normal, normal range of motion, non-tender, swelling, other - Bilateral lower extremity 2+ edema, equal size. No erythema. No tenderness Neurologic: normal inspection, alert, oriented x3, responsive, motor strength/ tone normal, sensory intact, normal gait, speech normal Psychiatric: normal inspection, judgement/insight normal, memory normal Skin: normal inspection, normal color, no rash, warm/dry, well hydrated, normal turgor Medical Decision Making Diagnostic Impression: Primary Impression: Edema Additional Impressions: Chronic epigastric pain Hypokalemia ER Course 71-year-old female with bilateral lower extremity edema, also with burning epigastric pain DDX: Bilateral lower extremity edema likely secondary to venous insufficiency versus CHF. Nontender, no erythema, no unilateral swelling Also with chronic burning epigastric pain, gastritis, gastroenteritis, GERD. Patient's abdomen is very soft nontender at this time Plan: Obtain labs, ua, ucx, CXR, EKG Pepcid, Zofran, GI cocktail ER course: Patient has remained stable during ED stay. VSS +hypokalemia, given supplementation states this has happened in the past and they switches her diuretics around pt appears very well, stable for dc home with pmd fu Disposition: Patient is to be discharged to home. Prescriptions given are pepcid Patient is instructed to follow up with their primary care doctor within 5 days. Strict return precautions discussed with patient such as fever, chills, worsening/severe pain, chest pain, SOB, nausea, vomiting, which may indicate severe illness. Patient verbalizes understanding and agrees with plan. Please note that this Emergency Department Report was dictated using [employer] security specialist technology software, occasionally this can lead to erroneous entry secondary to interpretation by the dictation equipment EKG Diagnostic Results EP Interpretation: Yes Rate: normal Rhythm: NSR ST Segments: No acute changes ASA given to patient: No Rhythm Strip EP Interpretation: Yes Rate: 70 Rhythm: NSR, no PVCs, no ectopy Chest X-ray CXR: Ordered: Yes 1 view Indication: Chest pain EP interpretation: Yes Interpretation: Cardiomegaly Impression: Cardiomegaly Electronically signed by Niraj Robertson MD Laboratory Tests Test 07/12/17 15:40 07/12/17 16:00 Urine Color Yellow Urine Appearance Cloudy Urine pH 8 (4.5-8.0) Urine Specific [place] 1.010 (1.005-1.035) Urine Protein Negative (NEGATIVE) Urine Glucose (UA) Negative (NEGATIVE) Urine Ketones Negative (NEGATIVE) Urine Occult Blood 2+ (NEGATIVE) H Urine Nitrite Negative (NEGATIVE) Urine Bilirubin Negative (NEGATIVE) Urine Urobilinogen Normal MG/DL (0.0-1.0) Urine Leukocyte Esterase Negative (NEGATIVE) Urine RBC 2-4 /HPF (0 - 2) H Urine WBC 0-2 /HPF (0 - 2) Urine Squamous Epithelial Cells Moderate /LPF (NONE/OCC) H Urine Amorphous Sediment Many /LPF (NONE) H Urine Bacteria Few /HPF (NONE) White Blood Count 4.2 K/UL (4.8-10.8) L Red Blood Count 4.29 M/UL (4.20-5.40) Hemoglobin 12.8 G/DL (12.0-16.0) Hematocrit 38.2 % (37.0-47.0) Mean Corpuscular Volume 89 FL (80-99) Mean Corpuscular Hemoglobin 29.9 PG (27.0-31.0) Mean Corpuscular Hemoglobin Concent 33.6 G/DL (32.0-36.0) Red Cell Distribution Width 12.4 % (11.6-14.8) Platelet Count 149 K/UL (150-450) L Mean Platelet Volume 8.7 FL (6.5-10.1) Neutrophils (%) (Auto) 55.5 % (45.0-75.0) Lymphocytes (%) (Auto) 31.9 % (20.0-45.0) Monocytes (%) (Auto) 8.6 % (1.0-10.0) Eosinophils (%) (Auto) 2.7 % (0.0-3.0) Basophils (%) (Auto) 1.3 % (0.0-2.0) Sodium Level 143 MMOL/L (136-145) Potassium Level 2.7 MMOL/L (3.5-5.1) *L Chloride Level 103 MMOL/L (98-107) Carbon Dioxide Level 33 MMOL/L (21-32) H Anion Gap 6 mmol/L (5-15) Blood Urea Nitrogen 10 mg/dL (7-18) Creatinine 0.7 MG/DL (0.55-1.30) Estimate Glomerular Filtration Rate mL/min (>60) Glucose Level 117 MG/DL (74-106) H Calcium Level 9.1 MG/DL (8.5-10.1) Total Bilirubin 0.6 MG/DL (0.2-1.0) Aspartate Amino Transferase (AST) 18 U/L (15-37) Alanine Aminotransferase (ALT) 21 U/L (12-78) Alkaline Phosphatase 71 U/L (46-116) Troponin I 0.000 ng/mL (0.000-0.056) Pro-B-Type Natriuretic Peptide 189 pg/mL (0-125) H Total Protein 6.8 G/DL (6.4-8.2) Albumin 3.4 G/DL (3.4-5.0) Globulin 3.4 g/dL Albumin/Globulin Ratio 1.0 (1.0-2.7) Lipase 117 U/L (73-393) Last Vital Signs Date Time Temp Pulse Resp B/P (MAP) Pulse Ox O2 Delivery O2 Flow Rate FiO2 07/12/17 15:44 98.0 74 20 159/83 96 Room Air 98.1 Disposition: HOME, SELF-CARE Condition: Improved Scripts Famotidine (PEPCID) 40 Mg Tablet 40 MG PO DAILY, #14 TAB 0 Refills Prov: Niraj Robertson M.D. 07/12/17 Niraj Robertson M.D. Jul 12, 2017 16:17
[2017-07-12 17:00] VITALS: BP 128/55
[2017-07-12 17:10] LABS: BASOPHILS % (AUTO) 1.3 % (0.0-2.0); EOSINOPHILS % (AUTO) 2.7 % (0.0-3.0); HEMATOCRIT 38.2 % (37.0-47.0); HEMOGLOBIN 12.8 G/DL (12.0-16.0); LYMPHOCYTES % (AUTO) 31.9 % (20.0-45.0); MEAN CORPUSCULAR VOLUME 89 FL (80-99); MONOCYTES % (AUTO) 8.6 % (1.0-10.0); NEUTROPHILS % (AUTO) 55.5 % (45.0-75.0); PLATELET COUNT 149 K/UL (150-450); RED BLOOD COUNT 4.29 M/UL (4.20-5.40); RED CELL DISTRIBUTION WIDTH 12.4 % (11.6-14.8); WHITE BLOOD COUNT 4.2 K/UL (4.8-10.8)
[2017-07-12 17:10] LABS: BILIRUBIN, URINE NEGATIVE (NEGATIVE); GLUCOSE, URINE (UA) NEGATIVE (NEGATIVE); KETONES,URINE NEGATIVE (NEGATIVE); LEUKOCYTE ESTERASE ,URINE NEGATIVE (NEGATIVE); NITRITE,URINE NEGATIVE (NEGATIVE); PH,URINE 8 (4.5-8.0); PROTEIN,URINE NEGATIVE (NEGATIVE); UROBILINOGEN,URINE NORMAL MG/DL (0.0-1.0)
[2017-07-12 17:12] LABS: COLOR,URINE YELLOW
[2017-07-12 17:13] LABS: APPEARANCE,URINE CLOUDY
[2017-07-12] MEDS ORDERED: PEPCID40 MG PO (17:15)
[2017-07-12 17:32] LABS: ALANINE AMINOTRANSFERASE 21 U/L (12-78); ALBUMIN 3.4 G/DL (3.4-5.0); ALKALINE PHOSPHATASE 71 U/L (46-116); ANION GAP 6 mmol/L (5-15); ASPARTATE AMINO TRANSFERASE 18 U/L (15-37); BILIRUBIN,TOTAL 0.6 MG/DL (0.2-1.0); BLOOD UREA NITROGEN 10 mg/dL (7-18); CALCIUM 9.1 MG/DL (8.5-10.1); CARBON DIOXIDE 33 MMOL/L (21-32); CHLORIDE 103 MMOL/L (98-107); CREATININE 0.7 MG/DL (0.55-1.30); SODIUM 143 MMOL/L (136-145)
[2017-07-12 17:34] LABS: POTASSIUM 2.7 MMOL/L (3.5-5.1)
[2017-07-12 18:04] VITALS: BP 128/55
--- NOTE | 2017-07-13 09:52 | Diagnostic Imaging Report ---
Indication: Chest pain Technique: XRAY Chest 1v Comparison: 11/04/2016 Findings: Cardiomediastinal silhouette is stable. There is no consolidation or pleural effusion. Degenerative changes of the spine are noted. Impression: No acute cardiopulmonary disease.
--- NOTE | 2017-07-14 19:18 | Cardiology Report ---
APPROVED REPORT EKG Measurement Heart [id number] Normal sinus rhythm Normal ECG
== END 2017-07-12 18:15 | disposition home or self-care (01) ==
LOC: EMR 16:17
DX: R60.9 Edema, unspecified (principal); G89.29 Other chronic pain; R10.13 Epigastric pain; E87.6 Hypokalemia; J45.909 Unspecified asthma, uncomplicated; I10 Essential (primary) hypertension; R07.9 Chest pain, unspecified; I51.7 Cardiomegaly
CPT/HCPCS: 36415; 71045; 80053; 81003; 83690; 83880; 84484; 85025; 93005; 96374; 96375; 99284; J2405; S0028; J8499

== ENCOUNTER 2017-07-17 16:33 | Outpatient (CLI) | payer MEDICARE, MEDICAID ==
[~2017-07-17 16:33] MED LIST changes: +PEPCID40 MG PO
[2017-07-17 17:34] LABS: APPEARANCE,URINE SLIGHTLY CLOUDY; BILIRUBIN, URINE NEGATIVE (NEGATIVE); GLUCOSE, URINE (UA) NEGATIVE (NEGATIVE); KETONES,URINE NEGATIVE (NEGATIVE); LEUKOCYTE ESTERASE ,URINE 1+ (NEGATIVE); NITRITE,URINE NEGATIVE (NEGATIVE); PH,URINE 6.5 (4.5-8.0); PROTEIN,URINE 1+ (NEGATIVE); UROBILINOGEN,URINE 1 MG/DL (0.0-1.0)
[2017-07-17 17:35] LABS: COLOR,URINE AMBER
--- NOTE | 2017-07-18 11:12 | Diagnostic Imaging Report ---
Reason For Exam: COUGH Technique: XRAY Chest 1v Comparison: 07/12/2017 Findings: Heart size and mediastinal contours are stable. There is no focal airspace consolidation, pleural effusion or pneumothorax. No acute osseous abnormality seen. Some degenerative changes are noted in the spine. Cholecystectomy clips again noted in the right upper quadrant. Impression: No radiographic evidence of acute cardiopulmonary disease. No significant interval change compared to the prior exam.
--- NOTE | 2017-07-19 18:18 | Cardiology Report ---
APPROVED REPORT EKG Measurement Heart [id number] Normal sinus rhythm Nonspecific T wave abnormality Abnormal ECG
== END 2017-07-17 18:33 | disposition home or self-care (01) ==
LOC: EKG 16:33 → LAB 18:33
DX: M25.562 Pain in left knee (principal); I10 Essential (primary) hypertension; R53.1 Weakness; M54.5 Low back pain
CPT/HCPCS: 71045; 81001; 93005

== ENCOUNTER 2017-08-28 13:10 | Outpatient (CLI) | payer MEDICARE, MEDICAID ==
[2017-08-28 13:15] VITALS: BP 128/77
--- NOTE | 2017-08-28 18:19 | GI Initial Consult Note ---
History of Present Illness General Date patient seen: August 28, 2017 Time patient seen: 15:00 Referring physician: CHANCE DURHAM Reason for Consultation: CONSTIPATION Present Illness HPI 71 year old female patient referred by Dr. Durham for constipation. Hx of recent R TKA, currently on [place] for pain management. Last colonoscopy was approximately 3 years ago noted with colonic polyps which was done at [place]. Denies any N/V/D. Denies any unintentional weight loss or changes in dietary habits. No signs of abuse or neglect. Patient is not fall risk. Home Meds Active Scripts Hydrocodone Bit/Acetaminophen 10-325* (HYDROCODON-ACETAMINOPHN 10-325*) 1 Each Tablet, 1 TAB ORAL Q6H, #10 TAB Prov:ALEJANDRA GRIFFIN 07/21/13 Reported Medications Hydrochlorothiazide* (HYDROCHLOROTHIAZIDE*) 25 Mg Tablet, 25 MG ORAL DAILY, TAB 07/12/17 Calcium Carbonate/Vitamin D3 (CALCIUM 600 + VIT D 200 TABLET) 1 Each Tablet, 1 EACH PO DAILY, TAB 02/23/16 Ascorbic Acid* (VITAMIN C*) 500 Mg Tablet, 500 MG ORAL DAILY, #30 TAB 0 Refills 02/23/16 Vitamin D (Vitamin D3) 400 Unit Tablet, 3000 UNITS ORAL DAILY, TAB 02/23/16 Aspirin* (ASPIR 81*) 81 Mg Tablet.dr, 81 MG ORAL DAILY, TAB 07/21/13 Atenolol* (TENORMIN*) 25 Mg Tablet, 25 MG ORAL DAILY, TAB 07/21/13 Discontinued Reported Medications Cephalexin* (KEFLEX*) 500 Mg Capsule, 500 MG ORAL EVERY 6 HOURS, CAP 03/03/17 Doxycycline Monohydrate* (DOXYCYCLINE MONOHYDRATE*) 100 Mg Capsule, 100 MG ORAL TWICE A DAY, #14 CAP 0 Refills 03/03/17 Cephalexin* (KEFLEX*) 500 Mg Capsule, 500 MG ORAL EVERY 6 HOURS, #28 CAP 0 Refills 03/03/17 Discontinued Scripts Famotidine (PEPCID) 40 Mg Tablet, 40 MG PO DAILY, #14 TAB 0 Refills Prov:Niraj Robertson M.D. 07/12/17 Med list reviewed/reconciled: Yes Allergies: Coded Allergies: No Known Allergies (Unverified , 10/03/16) Patient History History Provided By: Patient, Medical Record PMH Narrative HTN IBS Constipation Pertinent Family History: none Social History: Denies: smoking, alcohol use, drug use, other Review of Systems All Other Systems: negative except mentioned in HPI Physical Exam Vital Signs Date Time Temp Pulse Resp B/P (MAP) Pulse Ox O2 Delivery O2 Flow Rate FiO2 08/28/17 13:15 98.5 75 128/77 100 98.5 Sp02 EP Interpretation: reviewed, normal General Appearance: well appearing, no apparent distress, alert, obese Head: normocephalic EENT: PERRL/EOMI, normal ENT inspection Neck: supple Respiratory: normal breath sounds, no respiratory distress Cardiovascular: normal rate Gastrointestinal: normal inspection, non tender, soft, normal bowel sounds, non -distended Rectal: deferred Genitourinary: no CVA tenderness Musculoskeletal: normal inspection, back normal Neurologic: normal inspection, alert, oriented x3, responsive Psychiatric: normal inspection, judgement/insight normal, memory normal Skin: normal inspection, normal color, no rash, warm/dry, palpation normal, well hydrated Lymphatic: normal inspection, no adenopathy GI: Plan Problems: (1) Therapeutic opioid-induced constipation (OIC) (2) HTN (hypertension) (3) Swelling of knee joint, right Plan will obtain endoscopy/colonoscopy records from [place], will consider GI procedures trial Rx of Movantik RTC x [address] Joseph. Thank you for this patient referral. Jose De Dios NP August 28, 2017 18:19
== END 2017-08-28 13:42 | disposition home or self-care (01) ==
LOC: PAN 13:10
DX: I10 Essential (primary) hypertension (principal); M25.461 Effusion, right knee; K59.03 Drug induced constipation; Z79.82 Long term (current) use of aspirin; Z86.010 Personal history of colon polyps
CPT/HCPCS: 99201

== ENCOUNTER 2017-09-27 16:46 | Emergency (ER) | payer MEDICARE, MEDICAID ==
[~2017-09-27] VITALS: Ht 167.6 cm; Wt 102.1 kg
--- NOTE | 2017-09-27 17:23 | Emergency Room Report ---
History of Present Illness General Chief Complaint: Lower Back Pain or Injury Source: Patient Present Illness HPI 71-year-old female presents emergency department complaining of 9 out of 10 in severity low back pain 2 days. Patient reports progressive onset approximately one hour after she was vacuuming the house. Patient reports history of sciatica however she denies radiation of her pain. Patient reports that the pain is bilateral in nature constant and throbbing. Patient denies trauma or fall she denies fevers, chills, abdominal pain, urinary frequency, urgency or dysuria. Patient reports that she just had urine checked by her PCP 2 weeks ago and was normal. Patient denies headaches. She denies recent spinal procedures, night sweats, history of cancer/malignancy. patient states That her pain is exacerbated upon twisting from side to side. Denies numbness tingling or loss of sensation or gross motor movements of the extremities, incontinence of bowel or bladder. Denies CP, Palpitations, LOC, AMS, dizziness, Changes in Vision, weakness or a sudden severe headache. Allergies: Coded Allergies: No Known Allergies (Unverified , 10/03/16) Patient History Past Medical History: see triage record, HTN Past Surgical History: none Pertinent Family History: none Last Menstrual Period: UNK Now: No Reviewed Nursing Documentation: PMH: Agreed; PSxH: Agreed Nursing Documentation-PMH Hx Cardiac Problems: Yes Hx Hypertension: Yes Hx Asthma: Yes Hx Cancer: No Hx Gastrointestinal Problems: Yes - IBS Hx Neurological Problems: No Review of Systems All Other Systems: negative except mentioned in HPI Physical Exam Vital Signs Date Time Temp Pulse Resp B/P (MAP) Pulse Ox O2 Delivery O2 Flow Rate FiO2 09/27/17 16:56 98.2 77 15 157/86 94 Room Air 98.2 Sp02 EP Interpretation: reviewed, normal General Appearance: no apparent distress, alert, GCS 15, non-toxic Head: normocephalic, atraumatic ENT: hearing grossly normal, normal voice Neck: full range of motion Respiratory: lungs clear, normal breath sounds, speaking full sentences Cardiovascular #1: regular rate, rhythm, no edema Gastrointestinal: non tender, soft Rectal: deferred Genitourinary: normal inspection, no CVA tenderness Musculoskeletal: back normal, gait/station normal, normal range of motion - with some exacerbation of pain, but able to complete, other - Mild Tenderness to palpation to paraspinal muscles of the lower back with no midline spinous process/bony tenderness. Neurologic: alert, oriented x3, responsive, motor strength/tone normal, sensory intact, normal gait, speech normal, grossly normal Psychiatric: judgement/insight normal Skin: normal color, no rash, warm/dry, well hydrated Medical Decision Making PA Attestation Dr. Fernando is my supervising Physician whom patient management has been discussed with. Diagnostic Impression: Primary Impression: Low back pain Qualified Codes: M54.5 - Low back pain ER Course 71-year-old female presents emergency department complaining of 9 out of 10 in severity low back pain 2 days. Patient reports progressive onset approximately one hour after she was vacuuming the house. Patient reports history of sciatica however she denies radiation of her pain. Patient reports that the pain is bilateral in nature constant and throbbing. Patient denies trauma or fall she denies fevers, chills, abdominal pain, urinary frequency, urgency or dysuria. Patient reports that she just had urine checked by her PCP 2 weeks ago and was normal. Patient denies headaches. She denies recent spinal procedures, night sweats, history of cancer/malignancy. patient states That her pain is exacerbated upon twisting from side to side. Denies numbness tingling or loss of sensation or gross motor movements of the extremities, incontinence of bowel or bladder. Denies CP, Palpitations, LOC, AMS, dizziness, Changes in Vision, weakness or a sudden severe headache. Pt. presents to ED c/o LBP. Ddx considered: epidural abscess, fracture, sprain/strain, meningitis, spinal chord injury, sciatica, cauda equina, Pyelonephritis, renal calculi just to name a few. Vital signs reviewed and are WNL during ED visit. Pt. is afebrile with no signs of infection No new symptoms, and denies recent trauma. No saddle anesthesia noted, Pt. denies incontinence Neurovascular is intact ROM exacerbates some pain,however, able to complete almost FROM before pt. has pain. * Mild Tenderness to palpation to paraspinal muscles of the lower back with no midline spinous process/bony tenderness. *Pt. describes pain today as moderate and radiates across the lower back. Does not radiate down the leg. ORDERS: none warranted at this time. INTERVENTIONS: - 20mg IM Toradol -Soma PO d/w pt. conservative treatment, and to follow up with a primary care provider. pt given a list of primary care clinics for follow up. d/w pt. to return to the ED with worsening or new symptoms. DISCHARGE: At this time pt. is stable for d/c to home. Will provide printed patient care instructions, and any necessary prescriptions. Care plan and follow up instructions have been discussed with the patient prior to discharge. Last Vital Signs Date Time Temp Pulse Resp B/P (MAP) Pulse Ox O2 Delivery O2 Flow Rate FiO2 09/27/17 16:56 98.2 77 15 157/86 94 Room Air 98.2 Disposition: HOME, SELF-CARE Condition: Stable Scripts Diclofenac Sod* (VOLTAREN*) 50 Mg Tablet.dr 50 MG ORAL THREE TIMES A DAY for 3 Days, #9 TAB Prov: Milana Argueta 09/27/17 Lidocaine (Lidoderm) 1 Each Adh..patch 1 PATCH TOPIC DAILY, #30 PATCH 0 Refills Patch(es) may remain in place for up to 12 hours in any 24-hour period. Prov: Milana Argueta 09/27/17 Methocarbamol* (ROBAXIN*) 500 Mg Tablet 1000 MG PO TID, #42 TAB 0 Refills Prov: Milana Argueta 09/27/17 Patient Instructions: Lumbosacral Strain, Back Pain, Adult Additional Instructions: Take medications as directed. Follow up with a Primary Care Provider in 3-5 days, even if your symptoms have resolved. --Please review list of primary care clinics, if you do not already have a primary care provider Return sooner to ED if new symptoms occur, or current symptoms become worse. Do not drink alcohol, drive, or operate heavy machinery while taking Robaxin as this may cause drowsiness. - Please note that this Emergency Department Report was dictated using [email or web address] welder technology software, occasionally this can lead to erroneous entry secondary to interpretation by the dictation equipment. Milana Argueta Sep 27, 2017 17:23
[2017-09-27] MEDS ORDERED: Ketorolac 60mg Inj IM ONE (17:30)
[2017-09-27] MEDS ORDERED: DICLOFENAC SODI50 MG ORAL (17:40)
[2017-09-27] MEDS ORDERED: LIDODERM700 M1 TOPIC (17:40)
[2017-09-27] MEDS ORDERED: ROBAXIN500 MG PO (17:40)
[2017-09-27 17:54] VITALS: BP 157/86
== END 2017-09-27 17:54 | disposition home or self-care (01) ==
LOC: EMR 17:10
DX: M54.5 Low back pain (principal); I10 Essential (primary) hypertension; J45.909 Unspecified asthma, uncomplicated
CPT/HCPCS: 96372; 99284

== ENCOUNTER 2018-06-17 11:53 | Outpatient (CLI) | payer MEDICARE, MEDICAID ==
[~2018-06-17 11:53] MED LIST changes: +DICLOFENAC SODI50 MG ORAL; +LIDODERM700 M1 TOPIC; +ROBAXIN500 MG PO
[2018-06-17 12:39] LABS: BASOPHILS % (AUTO) 1.5 % (0.0-2.0); EOSINOPHILS % (AUTO) 3.1 % (0.0-3.0); HEMATOCRIT 41.9 % (37.0-47.0); HEMOGLOBIN 13.6 G/DL (12.0-16.0); LYMPHOCYTES % (AUTO) 33.8 % (20.0-45.0); MEAN CORPUSCULAR VOLUME 93 FL (80-99); MONOCYTES % (AUTO) 8.2 % (1.0-10.0); NEUTROPHILS % (AUTO) 53.5 % (45.0-75.0); PLATELET COUNT 143 K/UL (150-450); RED BLOOD COUNT 4.49 M/UL (4.20-5.40); RED CELL DISTRIBUTION WIDTH 11.9 % (11.6-14.8); WHITE BLOOD COUNT 4.8 K/UL (4.8-10.8)
[2018-06-17 12:47] LABS: ALANINE AMINOTRANSFERASE 39 U/L (12-78); ALBUMIN 4.1 G/DL (3.4-5.0); ALBUMIN/GLOBULIN RATIO 1.1 (1.0-2.7); ALKALINE PHOSPHATASE 71 U/L (46-116); ANION GAP 8 mmol/L (5-15); ASPARTATE AMINO TRANSFERASE 24 U/L (15-37); BILIRUBIN,TOTAL 0.8 MG/DL (0.2-1.0); BLOOD UREA NITROGEN 16 mg/dL (7-18); CALCIUM 9.9 MG/DL (8.5-10.1); CARBON DIOXIDE 31 MMOL/L (21-32); CHLORIDE 103 MMOL/L (98-107); CREATININE 0.7 MG/DL (0.55-1.30); POTASSIUM 3.6 MMOL/L (3.5-5.1); SODIUM 141 MMOL/L (136-145)
[2018-06-17 12:57] LABS: INR 1.1 (0.9-1.1)
[2018-06-17 13:24] LABS: APPEARANCE,URINE CLEAR; BILIRUBIN, URINE NEGATIVE (NEGATIVE); GLUCOSE, URINE (UA) NEGATIVE (NEGATIVE); KETONES,URINE NEGATIVE (NEGATIVE); LEUKOCYTE ESTERASE ,URINE 1+ (NEGATIVE); NITRITE,URINE NEGATIVE (NEGATIVE); PH,URINE 7 (4.5-8.0); PROTEIN,URINE NEGATIVE (NEGATIVE); UROBILINOGEN,URINE NORMAL MG/DL (0.0-1.0)
[2018-06-17 13:28] LABS: COLOR,URINE YELLOW
--- NOTE | 2018-06-17 14:51 | Diagnostic Imaging Report ---
Indication: Cough Comparison: 07/17/2017 2 views of the chest obtained. Findings: Cardiomediastinal silhouette mildly prominent and pulmonary vascularity are within normal limits for age. The diaphragmatic contour is smooth and costophrenic angles are sharp. No pleural effusions are identified. The bones are unremarkable. Impression: No acute disease
== END 2018-06-17 13:53 | disposition home or self-care (01) ==
LOC: LAB 11:53
DX: Z01.818 Encounter for other preprocedural examination (principal); N64.4 Mastodynia; R05 Cough
CPT/HCPCS: 36415; 71046; 80053; 81003; 85025; 85610; 85730; 93005

== ENCOUNTER → 2018-07-07 | Outpatient (CLI) | payer MEDICARE, MEDICAID ==
[2018-07-07 12:49] LABS: APPEARANCE,URINE CLEAR; BILIRUBIN, URINE NEGATIVE (NEGATIVE); COLOR,URINE PALE YELLOW; GLUCOSE, URINE (UA) NEGATIVE (NEGATIVE); KETONES,URINE NEGATIVE (NEGATIVE); LEUKOCYTE ESTERASE ,URINE 1+ (NEGATIVE); NITRITE,URINE NEGATIVE (NEGATIVE); PH,URINE 6 (4.5-8.0); PROTEIN,URINE 1+ (NEGATIVE); UROBILINOGEN,URINE NORMAL MG/DL (0.0-1.0)
[2018-07-07 12:54] LABS: BASOPHILS % (AUTO) 0.9 % (0.0-2.0); EOSINOPHILS % (AUTO) 4.3 % (0.0-3.0); HEMATOCRIT 42.1 % (37.0-47.0); HEMOGLOBIN 13.8 G/DL (12.0-16.0); LYMPHOCYTES % (AUTO) 37.9 % (20.0-45.0); MEAN CORPUSCULAR VOLUME 91 FL (80-99); MONOCYTES % (AUTO) 7.6 % (1.0-10.0); NEUTROPHILS % (AUTO) 49.3 % (45.0-75.0); PLATELET COUNT 183 K/UL (150-450); RED BLOOD COUNT 4.63 M/UL (4.20-5.40); RED CELL DISTRIBUTION WIDTH 11.4 % (11.6-14.8); WHITE BLOOD COUNT 5.1 K/UL (4.8-10.8)
--- NOTE | 2018-07-07 13:14 | Diagnostic Imaging Report ---
Indication: Dyspnea Comparison: 06/17/2018 2 views of the chest obtained. Findings: Cardiomediastinal silhouette and pulmonary vascularity are within normal limits for age. The diaphragmatic contour is smooth and costophrenic angles are sharp. No pleural effusions are identified. The bones are unremarkable. Impression: No acute disease
[2018-07-07 13:20] LABS: BLOOD UREA NITROGEN 31 mg/dL (7-18); CALCIUM 10.7 MG/DL (8.5-10.1); CARBON DIOXIDE 29 MMOL/L (21-32); CREATININE 0.9 MG/DL (0.55-1.30)
[2018-07-07 14:10] LABS: CHLORIDE 104 MMOL/L (98-107); SODIUM 143 MMOL/L (136-145)
[2018-07-07 14:29] LABS: POTASSIUM 2.7 MMOL/L (3.5-5.1)
== END | disposition home or self-care (01) ==
LOC: LAB 12:25
DX: M17.12 Unilateral primary osteoarthritis, left knee (principal); J45.909 Unspecified asthma, uncomplicated; M54.5 Low back pain; R60.0 Localized edema; R06.00 Dyspnea, unspecified
CPT/HCPCS: 36415; 71046; 80048; 81001; 85025

== ENCOUNTER 2018-07-23 12:13 | Outpatient (CLI) | payer MEDICARE, MEDICAID ==
[2018-07-23 12:34] LABS: APPEARANCE,URINE CLEAR; BILIRUBIN, URINE NEGATIVE (NEGATIVE); GLUCOSE, URINE (UA) NEGATIVE (NEGATIVE); KETONES,URINE NEGATIVE (NEGATIVE); LEUKOCYTE ESTERASE ,URINE 1+ (NEGATIVE); NITRITE,URINE NEGATIVE (NEGATIVE); PH,URINE 8 (4.5-8.0); PROTEIN,URINE NEGATIVE (NEGATIVE); UROBILINOGEN,URINE NORMAL MG/DL (0.0-1.0)
[2018-07-23 12:36] LABS: BASOPHILS % (AUTO) 1.1 % (0.0-2.0); EOSINOPHILS % (AUTO) 4.1 % (0.0-3.0); HEMATOCRIT 39.8 % (37.0-47.0); HEMOGLOBIN 13.2 G/DL (12.0-16.0); LYMPHOCYTES % (AUTO) 33.5 % (20.0-45.0); MEAN CORPUSCULAR VOLUME 91 FL (80-99); MONOCYTES % (AUTO) 7.9 % (1.0-10.0); NEUTROPHILS % (AUTO) 53.3 % (45.0-75.0); PLATELET COUNT 146 K/UL (150-450); RED BLOOD COUNT 4.36 M/UL (4.20-5.40); RED CELL DISTRIBUTION WIDTH 11.7 % (11.6-14.8); WHITE BLOOD COUNT 5.8 K/UL (4.8-10.8)
[2018-07-23 12:41] LABS: COLOR,URINE YELLOW
[2018-07-23 12:45] LABS: ANION GAP 9 mmol/L (5-15); BLOOD UREA NITROGEN 10 mg/dL (7-18); CALCIUM 8.8 MG/DL (8.5-10.1); CARBON DIOXIDE 28 MMOL/L (21-32); CHLORIDE 103 MMOL/L (98-107); CREATININE 0.7 MG/DL (0.55-1.30); POTASSIUM 2.9 MMOL/L (3.5-5.1); SODIUM 140 MMOL/L (136-145)
== END 2018-07-23 14:13 | disposition home or self-care (01) ==
LOC: LAB 12:13
DX: E87.6 Hypokalemia (principal); Z87.440 Personal history of urinary (tract) infections
CPT/HCPCS: 36415; 80048; 81003; 85025; 87086

== ENCOUNTER 2019-06-17 11:53 | Emergency (ER) | payer MEDICARE, MEDICAID ==
[~2019-06-17] VITALS: Ht 154.9 cm; Wt 102.1 kg
[2019-06-17] MEDS ORDERED: PERCOCET 10-321 EACH ORAL (12:06)
[2019-06-17 12:12] VITALS: BP 159/73
--- NOTE | 2019-06-17 12:12 | NUR ---
ED Nurse Note: Pt walked in from Dr kyle Henry's office due to SOB x 3 days and reports that her breathing treatment is not working for her. Lings are with wheezing when auscultated. Sats 95-99% in room air. AAO x4, ambulatory with mild SOB at rest. Daughter at the bed side.
--- NOTE | 2019-06-17 12:20 | NUR ---
ED Nurse Note: Collected blood then sent to lab.
--- NOTE | 2019-06-17 12:21 | Emergency Room Report ---
History of Present Illness General Chief Complaint: Dyspnea/Respdistress Source: Patient Present Illness HPI 73-year-old female presents with cough, shortness of breath x3 days, alleviated with albuterol no aggravating factors severity is moderate, worsening, patient is never been intubated never been placed in ICU patient was sent in from the doctor's office to be evaluated Allergies: Coded Allergies: No Known Allergies (Unverified , 10/03/16) Patient History Past Medical History: see triage record Reviewed Nursing Documentation: PMH: Agreed; PSxH: Agreed Nursing Documentation-PMH Past Medical History: No History, Except For Hx Cardiac Problems: Yes Hx Hypertension: Yes Hx Asthma: Yes Hx Cancer: No Hx Gastrointestinal Problems: Yes - IBS Hx Neurological Problems: No Review of Systems All Other Systems: negative except mentioned in HPI Physical Exam Vital Signs Date Time Temp Pulse Resp B/P (MAP) Pulse Ox O2 Delivery O2 Flow Rate FiO2 06/17/19 12:02 97.9 72 19 141/77 (98) 93 Room Air Sp02 EP Interpretation: reviewed, normal General Appearance: well appearing, no apparent distress, alert Head: normocephalic, atraumatic Eyes: bilateral eye PERRL, bilateral eye EOMI ENT: uvula midline, moist mucus membranes Neck: supple, thyroid normal, supple/symm/no masses Respiratory: decreased breath sounds, speaking full sentences, wheezing - Moderate Cardiovascular #1: normal peripheral pulses, regular rate, rhythm, no edema, no gallop, no murmur Gastrointestinal: non tender, soft, no guarding, no rebound Musculoskeletal: normal inspection Neurologic: alert, oriented x3 Psychiatric: mood/affect normal Skin: no rash, warm/dry Medical Decision Making Diagnostic Impression: Primary Impression: Asthma exacerbation Qualified Codes: J45.31 - Mild persistent asthma with (acute) exacerbation ER Course 73-year-old female presents with shortness of breath differential diagnosis includes asthma exacerbation, ACS, pneumonia Patient most likely with asthma exacerbation, 6 rounds of duo nebs was given Decadron, magnesium Reevaluation 2:11 PM patient feels better wants to go home We will provide patient with a steroid burst disposition home with return precautions follow-up with PCP Laboratory Tests Test 06/17/19 12:36 White Blood Count 6.3 K/UL (4.8-10.8) Red Blood Count 4.25 M/UL (4.20-5.40) Hemoglobin 13.3 G/DL (12.0-16.0) Hematocrit 39.0 % (37.0-47.0) Mean Corpuscular Volume 92 FL (80-99) Mean Corpuscular Hemoglobin 31.3 PG (27.0-31.0) H Mean Corpuscular Hemoglobin Concent 34.1 G/DL (32.0-36.0) Red Cell Distribution Width 11.3 % (11.6-14.8) L Platelet Count 137 K/UL (150-450) L Mean Platelet Volume 8.4 FL (6.5-10.1) Neutrophils (%) (Auto) 54.5 % (45.0-75.0) Lymphocytes (%) (Auto) 31.2 % (20.0-45.0) Monocytes (%) (Auto) 8.7 % (1.0-10.0) Eosinophils (%) (Auto) 4.1 % (0.0-3.0) H Basophils (%) (Auto) 1.6 % (0.0-2.0) Sodium Level 145 MMOL/L (136-145) Potassium Level 4.0 MMOL/L (3.5-5.1) Chloride Level 105 MMOL/L (98-107) Carbon Dioxide Level 32 MMOL/L (21-32) Anion Gap 9 mmol/L (5-15) Blood Urea Nitrogen 16 mg/dL (7-18) Creatinine 0.7 MG/DL (0.55-1.30) Estimate Glomerular Filtration Rate > 60 mL/min (>60) Glucose Level 107 MG/DL (74-106) H Calcium Level 9.4 MG/DL (8.5-10.1) Total Bilirubin 0.4 MG/DL (0.2-1.0) Aspartate Amino Transferase (AST) 44 U/L (15-37) H Alanine Aminotransferase (ALT) 76 U/L (12-78) Alkaline Phosphatase 81 U/L (46-116) Troponin I 0.005 ng/mL (0.000-0.056) Pro-B-Type Natriuretic Peptide 167 pg/mL (0-125) H Total Protein 7.0 G/DL (6.4-8.2) Albumin 3.3 G/DL (3.4-5.0) L Globulin 3.7 g/dL Albumin/Globulin Ratio 0.9 (1.0-2.7) L Lipase 105 U/L (73-393) EKG Diagnostic Results EKG Time: 12:25 EP Interpretation: NSR, rate 70, QTc 434, no acute ST elevations, normal axis Rhythm Strip Diag. Results Rhythm Strip Time: 14:10 EP Interpretation: yes Rate: 79 Rhythm: NSR, no PVC's, no ectopy Chest X-Ray Diagnostic Results Chest X-Ray Diagnostic Results : Chest X-Ray Ordered: Yes # of Views/Limited/Complete: 1 View Indication: Shortness of Breath EP Interpretation: Yes Interpretation: no consolidation, no effusion, no pneumothorax, no acute cardiopulmonary disease Impression: No acute disease Electronically Signed by: Ethan Galvin MD Last Vital Signs Date Time Temp Pulse Resp B/P (MAP) Pulse Ox O2 Delivery O2 Flow Rate FiO2 06/17/19 12:02 97.9 72 19 141/77 (98) 93 Room Air Disposition: HOME, SELF-CARE Condition: Stable Scripts Prednisone* (PREDNISONE*) 50 Mg Tablet 50 MG ORAL DAILY, #4 TAB 0 Refills Prov: Ethan Galvin MD 06/17/19 Albuterol Sulfate* (ALBUTEROL SULFATE MDI*) 8.5 Gm Hfa.aer.ad 2 PUFF INH Q4H PRN for Shortness of Breath, #1 EA 0 Refills Prov: Ethan Galvin MD 06/17/19 Referrals: [facility] Patient Instructions: Asthma, Adult, [id number] Additional Instructions: The patient was provided with discharge instructions, notified to follow-up with a primary care doctor and or specialist in the next 24-48 hours, and to return to the ED if they have worsening of their symptoms. Please note that this report is being documented using [employer] technology. This can lead to erroneous entry secondary to incorrect interpretation by the dictating instrument. Ethan Galvin MD Jun 17, 2019 12:21
[2019-06-17] MEDS ORDERED: Ipratropium 0.02% Inh Soln 2.5ml UD HHN SCH (12:30)
[2019-06-17] MEDS ORDERED: Albuterol ud Inhalation HHN SCH (12:30)
[2019-06-17] MEDS: Ipratropium 0.02% Inh Soln 2.5ml UD HHN SCH ×2 (12:31→12:35)
[2019-06-17] MEDS: Albuterol ud Inhalation HHN SCH ×2 (12:31→12:35)
--- NOTE | 2019-06-17 12:50 | NUR ---
ED Nurse Note: RT Gregg at the bed side for breathing treatment.
--- NOTE | 2019-06-17 13:00 | NUR ---
ED Nurse Note: net technical architect Jaron at the bed side for CXR.
[2019-06-17 13:23] LABS: BASOPHILS % (AUTO) 1.6 % (0.0-2.0); EOSINOPHILS % (AUTO) 4.1 % (0.0-3.0); HEMOGLOBIN 13.3 G/DL (12.0-16.0); LYMPHOCYTES % (AUTO) 31.2 % (20.0-45.0); MEAN CORPUSCULAR VOLUME 92 FL (80-99); MONOCYTES % (AUTO) 8.7 % (1.0-10.0); NEUTROPHILS % (AUTO) 54.5 % (45.0-75.0); PLATELET COUNT 137 K/UL (150-450); RED BLOOD COUNT 4.25 M/UL (4.20-5.40); RED CELL DISTRIBUTION WIDTH 11.3 % (11.6-14.8); WHITE BLOOD COUNT 6.3 K/UL (4.8-10.8)
[2019-06-17 13:25] LABS: ANION GAP 9 mmol/L (5-15); BLOOD UREA NITROGEN 16 mg/dL (7-18); CALCIUM 9.4 MG/DL (8.5-10.1); CARBON DIOXIDE 32 MMOL/L (21-32); CHLORIDE 105 MMOL/L (98-107); CREATININE 0.7 MG/DL (0.55-1.30); SODIUM 145 MMOL/L (136-145)
[2019-06-17 13:36] LABS: ALANINE AMINOTRANSFERASE 76 U/L (12-78); ALBUMIN 3.3 G/DL (3.4-5.0); ALBUMIN/GLOBULIN RATIO 0.9 (1.0-2.7); ALKALINE PHOSPHATASE 81 U/L (46-116); ASPARTATE AMINO TRANSFERASE 44 U/L (15-37); BILIRUBIN,TOTAL 0.4 MG/DL (0.2-1.0)
[2019-06-17 14:10] VITALS: BP 161/85
[2019-06-17] MEDS ORDERED: ALBUTEROL SULF8.5 GM INH (14:12)
[2019-06-17] MEDS ORDERED: PREDNISONE50 MG ORAL (14:12)
[2019-06-17 14:20] VITALS: BP 161/85
--- NOTE | 2019-06-17 14:20 | NUR ---
ER DISCHARGE NOTE: Patient is cleared to be discharged per ERMD, pt is aox4, on room air, with stable vital signs. accompanied by family. pt was given dc and prescription instructions, pt was able to verbalize understanding, pt id band and iv site removed without complications. pt is able to ambulate with steady gait. pt took all belongings.
--- NOTE | 2019-06-17 14:43 | Diagnostic Imaging Report ---
Indication: Shortness of breath Technique: One view of the chest Comparison: 07/07/2018 Findings: Inspiration is suboptimal. The heart size is upper limits of normal. No definite acute infiltrates, effusions, or congestion. Impression: No acute process
== END 2019-06-17 14:20 | disposition home or self-care (01) ==
LOC: EMR 13:10
DX: J45.31 Mild persistent asthma with (acute) exacerbation (principal); I11.9 Hypertensive heart disease without heart failure; K58.9 Irritable bowel syndrome, unspecified
CPT/HCPCS: 36415; 71045; 80053; 83690; 83880; 84484; 85025; 93005; 96360; 99284; J7030; J8540